=== PATIENT | male | born 1980 | race Caucasian/White ===

== ENCOUNTER 2017-05-19 14:03 | Inpatient (IN) | payer OTHER, SELFPAY ==
[2017-05-19] VITALS (12 sets, daily range): BP systolic 135–152; BP diastolic 83–99; PULSE 80–94; RESP 16–18; TEMP 36.3–37.3; O2SAT 93–97; BMI 29.3; BMI 30.7
--- NOTE | 2017-05-19 14:56 | EKG12_ITS ---
Test Reason : Blood Pressure : / mmHG Vent. Rate : 073 BPM Atrial Rate : 073 BPM P-R Int : 104 ms QRS Dur : 120 ms QT Int : 394 ms P-R-T Axes : 041 023 027 degrees QTc Int : 434 ms Normal sinus rhythm with sinus arrhythmia Vszps-Wsdgnyems-Fhndi Abnormal ECG Confirmed by NADIR BARRIOS, NAIDA ([id number]), content editor NELDA SANTORO ([id number]) on 05/20/2017 2:35:50 PM Referred By: STU Confirmed By:NAIDA SCHMITZ MD
--- NOTE | 2017-05-19 14:56 | RAD_ITS ---
STUDY: X-RAY CHEST REASON FOR EXAM: Male, 36 years old. Seizure. Loss of consciousness. TECHNIQUE: Single AP portable view of the chest. COMPARISON: None. FINDINGS: Telemetry wires overlie the chest. The lungs are clear and expanded. There is no demonstrated pleural abnormality. Normal size heart. Normal mediastinum and janett. Normal visualized pulmonary arteries. Normal visualized aortic arch and descending thoracic aorta. The thoracic spine is obscured by the mediastinum. Normal visualized ribs, clavicles, and shoulders. There is no demonstrated abnormality of the visualized soft tissue structures of the upper abdomen. RAD/Chest 1 View IMPRESSION: No acute cardiopulmonary disease. Electronically Signed: Dallas Mazariegos DO at 15:42 EDT Tel [phone], Service support ,
--- NOTE | 2017-05-19 14:56 | CT_ITS ---
STUDY: CT BRAIN WITHOUT CONTRAST REASON FOR EXAM: Male, 36 years old. Seizure, scalp laceration RADIATION DOSAGE (If Supplied By Facility): CTDIvol = ( 44.99 ) mGy, DLP = ( 846.73 ) mGycm TECHNIQUE: Transaxial CT imaging of the brain was performed without administration of intravenous contrast material. Sagittal and coronal reconstructed images are provided and reviewed. Individualized dose optimization techniques were used for this CT. COMPARISON: None. FINDINGS: There is soft tissue contusion in the left posterior scalp. Normal calvarium. Normal size ventricles and extra-axial spaces for the patient's age. Normal white matter tracts of the cerebral hemispheres. Normal basal ganglia and thalami. Normal brainstem. Normal cerebellum. There is no intracranial hemorrhage. There are no findings of an acute ischemic infarction. Normal visualized paranasal sinuses. CT/Brain/Head without Contrast IMPRESSION: Soft tissue swelling in the left parietal scalp. No acute intracranial abnormality. Electronically Signed: Xavi Bailon DO at 15:52 EDT Tel , Service support ,
[2017-05-19 15:21] LABS: Bedside Glucose 91 mg/dL (70-110)
[2017-05-19 15:32] LABS: Absolute Lymphocyte Count 1.42 X10^3/ul (0.83-4.51); Absolute Neutrophil Count 5.6 X10^3/uL (2.0-7.7); Basophil# 0.04 X10^3/uL; Basophil% 0.5 % (0-1); Eosinophil# 0.23 X10^3/uL; Eosinophils% 2.9 % (0-5); Hematocrit 46.9 % (40-54); Hemoglobin 16.4 g/dl (13.0-16.5); Lymphocyte # 1.42 X10^3/ul (4.0); Lymphocyte % 17.9 % (19-41); Mean Corpuscular Hgb 30.4 pg (27.0-32.0); Mean Platelet Vol. 11.5 fl (6.2-12.0); Monocyte# 0.59 X10^3/uL; Monocyte% 7.4 % (0-10); Neutrophil # 5.64 X10^3/uL (2.7-7.7); Platelet Count 155 K/mm3 (150-450); RBC Distribution Width CV 12.9 % (11.6-14.6); RBC Distribution Width SD 41.1 fl (35.1-43.9); Red Blood Count 5.39 M/mm3 (4.6-6.2); White Blood Count 7.9 K/mm3 (4.4-11.0)
[2017-05-19 15:34] LABS: POSITIVE COUNT NO; POSITIVE DIFFERENTIAL NO; POSITIVE MORPHOLOGY NO
[2017-05-19] MEDS: Diphth,Pertuss(Acell),Tet Vac 0.5 ML Vial IM (15:34)
[2017-05-19 15:43] LABS: International Normalized Ratio 0.9; Partial Thromboplast Time 24.5 Seconds (24.1-36.2); Prothrombin Time (Protime)PT. 12.6 SECONDS (11.7-14.9)
[2017-05-19 15:45] LABS: Anion Gap 8 (5-15); BUN 15 mg/dL (7-18); BUN/Creat Ratio 15.8 RATIO (10-20); Calcium,Total 8.5 mg/dL (8.5-10.1); Chloride 107 mmol/L (98-107); Creatinine, Serum 0.95 mg/dL (0.70-1.30); EST Glomerular Filtration Rate 94 mL/min (>60); Est Glom Filt Rate - Afr Amer 114 mL/min (>60); Estimated Creatinine Clearance 113.39 ml/min; Glucose 90 mg/dL (74-106); Potassium 4.2 mmol/L (3.5-5.1); Sodium Level 141 mmol/L (136-145)
[2017-05-19 16:12] LABS: Amphetamine Urine VISTA NEGATIVE (<1000 ng/mL); Barbiturate Urine VISTA NEGATIVE (< 200 ng/mL); Benzodiazepine Urine VISTA NEGATIVE (< 200 ng/mL); Cocaine Urine VISTA NEGATIVE (< 300 ng/mL); Ecstacy Urine VISTA NEGATIVE (< 500 ng/mL); Methadone Urine VISTA NEGATIVE (< 300 ng/mL); PCP Urine VISTA NEGATIVE (< 25 ng/mL); THC Urine VISTA POSITIVE (< 50 ng/mL); Vista UDS pH Range 6
--- NOTE | 2017-05-19 16:44 | ED.VISSUMM ---
- ER Visit Summary Date of Service: 05/19/17 Chief Complaint: Seizure History of Present Illness: The patient is a 36 M with a suspected seizure. The patient remembers prepping salad at work and then he went unconscious. Witnesses said he was shaking all over. EMS and nursing note that he was combative and postictal afterwards, but gradually improved. The patient denies any history of seizure. He denies any prodromal symptoms. He had sustained a laceration to his left scalp, but denies any other associated symptoms currently. 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 Denies any other significant medical issues. He does use marijuana. He drinks about 4-5 drinks per day which equates to about half a gallon of hard alcohol every 2 weeks. Denies any history of DTs or withdrawal seizures. Physical Examination: Vital signs unremarkable. Afebrile. He has a left scalp laceration, linear measuring 2 cm. Mild active bleeding. This is partial-thickness. No other sign of head trauma. Neck nontender. HEENT exam unremarkable. Cranial nerves grossly intact. Heart regular. Lungs clear. Abdomen soft. No focal or lateralizing neurologic abnormalities grossly. Patient is alert and oriented and in no acute distress. Test Results: EKG showed sinus rhythm at a rate of 73 with short MA interval and delta wave. CBC normal. BMP normal. Coags and troponin normal. Alcohol negative. Tox positive for THC. CT head showed left scalp soft tissue swelling but no other acute findings. Chest x-ray showed no acute findings. Emergency Department Course and Treatment: He was placed on a monitor and had seizure precautions. Tetanus was updated. Wound was cleaned and closed with 3 zohra. Patient tolerated this well. Patient had no further new or worsening symptoms. He has evidence of WPW. He has historical features that are concerning for new seizure. His mental status, vitals, and overall clinical presentation do not sound like DTs or withdrawal seizures. I believe the patient would benefit from further inpatient evaluation and monitoring. We called the CT, and at this time I am waiting for a call back. If the CT cannot accept this patient, the patient would like to go to [facility]. Further disposition is pending at this time. The oncoming doctor will follow-up. Treatment Plan: As above Disposition: Transfer pending further communications with accepting facilities Impression: 1. Seizure 2. WPW syndrome 3. Scalp laceration 2 cm stapled This note was generated with [employer] dictation software. It may contain incorrect words, spelling, and punctuation that were not noted in review of the chart prior to signing ED Disposition - Plan for ED Patient: Chief Complaint: Seizure Referrals: Care Physician,No Primary [Primary Care Provider] -
--- NOTE | 2017-05-19 16:49 | ED.DCSUM_ITS ---
- ER Visit Summary Date of Service: 05/19/17 Chief Complaint: Seizure History of Present Illness: The patient is a 36 M with a suspected seizure. The patient remembers prepping salad at work and then he went unconscious. Witnesses said he was shaking all over. EMS and nursing note that he was combative and postictal afterwards, but gradually improved. The patient denies any history of seizure. He denies any prodromal symptoms. He had sustained a laceration to his left scalp, but denies any other associated symptoms currently. He says he also has a history of Xdpvw-Wvckravlu-Xolgv syndrome. 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 Denies any other significant medical issues. He does use marijuana. He drinks about 4-5 drinks per day which equates to about half a gallon of hard alcohol every 2 weeks. Denies any history of DTs or withdrawal seizures. Physical Examination: Vital signs unremarkable. Afebrile. He has a left scalp laceration, linear measuring 2 cm. Mild active bleeding. This is partial- thickness. No other sign of head trauma. Neck nontender. HEENT exam unremarkable. Cranial nerves grossly intact. Heart regular. Lungs clear. Abdomen soft. No focal or lateralizing neurologic abnormalities grossly. Patient is alert and oriented and in no acute distress. Test Results: EKG showed sinus rhythm at a rate of 73 with short [place] interval and delta wave. CBC normal. BMP normal. Coags and troponin normal. Alcohol negative. Tox positive for THC. CT head showed left scalp soft tissue swelling but no other acute findings. Chest x-ray showed no acute findings. Emergency Department Course and Treatment: He was placed on a monitor and had seizure precautions. Tetanus was updated. Wound was cleaned and closed with 3 zohra. Patient tolerated this well. Patient had no further new or worsening symptoms. He has evidence of WPW. He has historical features that are concerning for new seizure. His mental status , vitals, and overall clinical presentation do not sound like DTs or withdrawal seizures. I believe the patient would benefit from further inpatient evaluation and monitoring. [facility] called the [facility], and at this time I am waiting for a call back. If the [facility] cannot accept this patient, the patient would like to go to [facility]. Further disposition is pending at this time. The oncoming doctor will follow-up. Treatment Plan: As above Disposition: Transfer pending further communications with accepting facilities Impression: 1. Seizure 2. WPW syndrome 3. Scalp laceration 2 cm stapled This note was generated with [employer] dictation software. It may contain incorrect words, spelling, and punctuation that were not noted in review of the chart prior to signing ED Disposition - Plan for ED Patient: Chief Complaint: Seizure Referrals: Care Physician,No Primary [Primary Care Provider] -
--- NOTE | 2017-05-19 17:47 | PCM.HP.STD ---
Problem List (1) Vitamin D deficiency Status: Chronic (2) Cannabis use disorder, mild, abuse Status: Chronic (3) Xnoic-Kzcvjfibo-Muujt (WPW) syndrome Status: Chronic (4) History of tobacco use Status: Chronic (5) Seizure Status: Acute (6) Alcohol abuse Status: Chronic History of Present Illness Date of Admission: 05/19/17 Chief Complaint: Seizure w/ Fall. The patient is a 36 y/o M w/ PMHx: WPW s/p ablation 2000, EtOH Abuse, Vitamin D Deficiency who presents to the [facility] ED on 05/19/17 with history of onset tonic clonic seizure while working at [employer] with post-ictal state noted per EMS w/ some combative behavior, calmed in the ED. Patient with no prior seizure history. Patient per witnesses was noted to hit his head on the floor upon seizure onset. Work-up in the ED included T 97.3, HR 90s, BP 149/95-->139/86, RR 16, 95% on RA, unremarkable CBC normal coags, unremarkable BMP, trop normal x 1, EKG without acute findings (WPW history), UDS + cannabis, EtOH level normal, CT head w/ soft tissue swelling in the left parietal scalp, no acute intracranial abnormality, chest x-ray unremarkable. Emergency room patient did have a 2 cm scalp laceration that was repaired per the ED. day was contacted on several occasions and did not respond therefore ED requested admission for evaluation and treatment of seizure. Past Medical History Past Medical History (Chronic Problems): Chronic Problems Vitamin D deficiency (Chronic) Cannabis use disorder, mild, abuse (Chronic) Cuxrc-Lvqocpfap-Tjilb (WPW) syndrome (Chronic) History of tobacco use (Chronic) Alcohol abuse (Chronic) Allergies No Known Allergies Allergy (Verified 05/19/17 14:12) Home Medications: Ambulatory Orders Medication Instructions Recorded Cholecalciferol (Vitamin D3) 1,000 unit PO DAILY 05/19/17 [Vitamin D3] Surgical History: - - Cardiac ablation, L shoulder arthroscopic surgery. Psychiatric History: No pertinent psych hx Lives: Roommate Smoking Status: Former smoker - Quit 8 years ago. Tobacco Use: Non-smoker Alcohol: Heavy - 3-5 drinks (gin/soda)/day Drugs: Marijuana - *Family History Maternal History Items: Hypertension Paternal History Items: Diabetes Review of Systems Constitutional: Reports: Fatigue. Denies: Chills, Fever, Weight Change HEENT: Reports: Head Aches. Denies: Sinus Congestion, Sinus Drainage Cardiovascular: Denies: Chest Pain, Palpitations Respiratory: Denies: Cough, Shortness of breath at rest, Sputum production Gastrointestinal: Denies: Abdominal Pain, Nausea, Vomiting Genitourinary: Denies: Dysuria Musculoskeletal: Denies: Joint Pain, Joint Tenderness Skin: Reports: Skin Changes, Wounds. Denies: Rash Neurological: Reports: Seizures. Denies: Focal weakness, Numbness, Tingling Psychiatric: Denies: Anxiety, Depression, Homicidal Ideations, Suicidal Ideations Hematologic/ Lymphatic: Denies: Easy Bruising, Easy Bleeding VTE Information - Inpt Only VTE Present on Admission: No VTE Mechan Device Prophylaxis: SCD's VTE Pharm Prophylaxis ordered?: No Reason prophylaxis not ordered:: Treatment Not Indicated Patient Problems: Active and Suspected Problems Seizure (Acute) Subjective: Seated upright in the ED bed, post-ictal state resolved, notes mild headache. Objective: Physical Examination: General: awake, alert, oriented x 3 and cooperative, seated upright in the ED bed in no apparent distress. Skin: normal color, turgor, no icterus, cyanosis except L lateral scalp laceration 2 cm, zohra in place. HEENT: AT/NC, EOMI, PERRLA, mildly dry MM, no carotid bruits or JVD noted. Lungs: CTA bilaterally, moderate effort, mild decrease BL bases, no rales, ronchi or wheezing. Heart: Regular rate and rhythm; no gallop, rub audible. Abdomen: soft, NTTP, ND, normal BS, no HSM. Extremities: no cyanosis, clubbing, or edema. Neurological: patient awake, alert, oriented x 3; cognitive function improved, now baseline intact; pupils equally reactive to light and accomodation; cranial nerves II-XII grossly normal, moving all 4 extremities, no focal deficits, strength mildly globally decreased secondary to acute presentation. Psychiatric: affect appears normal, no acute evidence of depressive or anxiety feelings. - Physical Exam Vital Signs Temp Pulse Resp BP Pulse Ox 97.3 F L 80 16 139/86 H 93 05/19/17 14:05 05/19/17 17:05 05/19/17 17:05 05/19/17 17:05 05/19/17 17:05 Oxygen Delivery Method Room Air Weight: 210 lb 6.899 oz Body Mass Index (BMI) 29.3 Finger Stick Blood Glucose 91 Laboratory Tests Past 24 Hrs 05/19/17 05/19/17 05/19/17 15:12 15:12 15:12 WBC 7.9 RBC 5.39 Hgb 16.4 Hct 46.9 MCV 87.0 MCH 30.4 MCHC 35.0 RDW 12.9 RDW Differential 41.1 Plt Count 155 MPV 11.5 Immature Gran % (Auto) 0.300 Neut % (Auto) 71.0 H Lymph % (Auto) 17.9 L [place] % (Auto) 7.4 Eos % (Auto) 2.9 Baso % (Auto) 0.5 Absolute Neuts (auto) 5.6 Absolute Lymphs (auto) 1.42 Total Counted Not Reportable PT 12.6 INR 0.9 APTT 24.5 Sodium 141 Potassium 4.2 Chloride 107 Carbon Dioxide 26.0 Anion Gap 8 BUN 15 Creatinine 0.95 Estim Creat Clear Calc 113.39 Est GFR (MDRD) Af Amer 114 Est GFR (MDRD) Non-Af 94 BUN/Creatinine Ratio 15.8 Glucose 90 Calcium 8.5 Troponin I < 0.02 Urine Opiates Screen Urine Methadone Screen Ur Barbiturates Screen Ur Phencyclidine Scrn Ur Amphetamines Screen U Methamphetamin-MDMA U Benzodiazepines Scrn Urine Cocaine Screen U Cannabinoids Screen Ur Drug Screen Comment Ethyl Alcohol 05/19/17 05/19/17 15:12 15:40 WBC RBC Hgb Hct MCV MCH MCHC RDW RDW Differential Plt Count MPV Immature Gran % (Auto) Neut % (Auto) Lymph % (Auto) [place] % (Auto) Eos % (Auto) Baso % (Auto) Absolute Neuts (auto) Absolute Lymphs (auto) Total Counted PT INR APTT Sodium Potassium Chloride Carbon Dioxide Anion Gap BUN Creatinine Estim Creat Clear Calc Est GFR (MDRD) Af Amer Est GFR (MDRD) Non-Af BUN/Creatinine Ratio Glucose Calcium Troponin I Urine Opiates Screen NEGATIVE Urine Methadone Screen NEGATIVE Ur Barbiturates Screen NEGATIVE Ur Phencyclidine Scrn NEGATIVE Ur Amphetamines Screen NEGATIVE U Methamphetamin-MDMA NEGATIVE U Benzodiazepines Scrn NEGATIVE Urine Cocaine Screen NEGATIVE U Cannabinoids Screen POSITIVE H Ur Drug Screen Comment Ethyl Alcohol 4.0 POC Glucose 03/28/18 15:12 POC Glucose 91 Assessment/Plan Active and Suspected Problems Seizure (Acute) The patient is a 36 y/o M w/ PMHx: WPW s/p ablation 2000, EtOH Abuse, Vitamin D Deficiency who presents to the [facility] ED on 05/19/17 with history of onset tonic clonic seizure while working at [employer] with post-ictal state noted per EMS w/ some combative behavior, calmed in the ED. (1) New-onset seizure s/p Fall w/ Scalp Laceration: Seizure witnessed with postictal state w/ fall w/ scalp laceration s/p ED repair. Improved mental status in the emergency room. CT head without acute intracranial pathology. Lab work-up included unremarkable CBC, BMP, UTox with + cannabis, pending UA. Will admit to PCU, maintain on telemetry in PCU on seizure precautions, obtain EEG, obtain brain MRI, obtain TSH. Pending Neurology consultation. PRN ativan IV for seizure activity. Pending hepatic profile. (2) Hx WPW Syndrome: Patient w/ hx WPW, s/p ablation 2000 with noted existing accessory pathway, no note per EMS of tachycardia, ED reviewed w/ Dr. Otto and felt no obvious reason for WPW to cause seizure activity, likely neurological, maintain on telemetry as noted above. (3) Elevated BP without HTN Dx: BPs elevated in the ED, continue to trend, if remains above goal over the next 24 hours appropriate to initiate oral therapy, PRN hydralazine. (4) GERD: Famotidine. (5) EtOH Abuse: Patient notes routine consumption of gin/soda, 3-5 drinks per day. Will maintain on CIWA protocol, MVI, thiamine and folic acid. Encouraged safe sobriety. (6) DVT Prophylaxis: SCDs, low risk. Code Visit Inpatient E&M: 44050 Init Hosp L3
--- NOTE | 2017-05-19 17:55 | HP.PCM_ITS ---
Problem List (1) Vitamin D deficiency Status: Chronic (2) Cannabis use disorder, mild, abuse Status: Chronic (3) Rlxmq-Yfcqpztta-Rwrzq (WPW) syndrome Status: Chronic (4) History of tobacco use Status: Chronic (5) Seizure Status: Acute (6) Alcohol abuse Status: Chronic History of Present Illness Date of Admission: 05/19/17 Chief Complaint: Seizure w/ Fall. The patient is a 36 y/o M w/ PMHx: WPW s/p ablation 2000, EtOH Abuse, Vitamin D Deficiency who presents to the [facility] ED on 05/19/17 with history of onset tonic clonic seizure while working at [employer] with post-ictal state noted per EMS w/ some combative behavior, calmed in the ED. Patient with no prior seizure history. Patient per witnesses was noted to hit his head on the floor upon seizure onset. Work-up in the ED included T 97.3, HR 90s, BP 149/95-- >139/86, RR 16, 95% on RA, unremarkable CBC normal coags, unremarkable BMP, trop normal x 1, EKG without acute findings (WPW history), UDS + cannabis, EtOH level normal, CT head w/ soft tissue swelling in the left parietal scalp, no acute intracranial abnormality, chest x-ray unremarkable. Emergency room patient did have a 2 cm scalp laceration that was repaired per the ED. day was contacted on several occasions and did not respond therefore ED requested admission for evaluation and treatment of seizure. Past Medical History Past Medical History (Chronic Problems): Chronic Problems Vitamin D deficiency (Chronic) Cannabis use disorder, mild, abuse (Chronic) Cxtdp-Tootdrapk-Bcvqy (WPW) syndrome (Chronic) History of tobacco use (Chronic) Alcohol abuse (Chronic) Allergies No Known Allergies Allergy (Verified 05/19/17 14:12) Home Medications: Ambulatory Orders Medication Instructions Recorded Cholecalciferol (Vitamin D3) 1,000 unit PO DAILY 05/19/17 [Vitamin D3] Surgical History: - - Cardiac ablation, L shoulder arthroscopic surgery. Psychiatric History: No pertinent psych hx Lives: Roommate Smoking Status: Former smoker - Quit 8 years ago. Tobacco Use: Non-smoker Alcohol: Heavy - 3-5 drinks (gin/soda)/day Drugs: Marijuana - *Family History Maternal History Items: Hypertension Paternal History Items: Diabetes Review of Systems Constitutional: Reports: Fatigue. Denies: Chills, Fever, Weight Change HEENT: Reports: Head Aches. Denies: Sinus Congestion, Sinus Drainage Cardiovascular: Denies: Chest Pain, Palpitations Respiratory: Denies: Cough, Shortness of breath at rest, Sputum production Gastrointestinal: Denies: Abdominal Pain, Nausea, Vomiting Genitourinary: Denies: Dysuria Musculoskeletal: Denies: Joint Pain, Joint Tenderness Skin: Reports: Skin Changes, Wounds. Denies: Rash Neurological: Reports: Seizures. Denies: Focal weakness, Numbness, Tingling Psychiatric: Denies: Anxiety, Depression, Homicidal Ideations, Suicidal Ideations Hematologic/ Lymphatic: Denies: Easy Bruising, Easy Bleeding VTE Information - Inpt Only VTE Present on Admission: No VTE Mechan Device Prophylaxis: SCD's VTE Pharm Prophylaxis ordered?: No Reason prophylaxis not ordered:: Treatment Not Indicated Patient Problems: Active and Suspected Problems Seizure (Acute) Subjective: Seated upright in the ED bed, post-ictal state resolved, notes mild headache. Objective: Physical Examination: General: awake, alert, oriented x 3 and cooperative, seated upright in the ED bed in no apparent distress. Skin: normal color, turgor, no icterus, cyanosis except L lateral scalp laceration 2 cm, zohra in place. HEENT: AT/NC, EOMI, PERRLA, mildly dry MM, no carotid bruits or JVD noted. Lungs: CTA bilaterally, moderate effort, mild decrease BL bases, no rales, ronchi or wheezing. Heart: Regular rate and rhythm; no gallop, rub audible. Abdomen: soft, NTTP, ND, normal BS, no HSM. Extremities: no cyanosis, clubbing, or edema. Neurological: patient awake, alert, oriented x 3; cognitive function improved, now baseline intact; pupils equally reactive to light and accomodation; cranial nerves II-XII grossly normal, moving all 4 extremities, no focal deficits, strength mildly globally decreased secondary to acute presentation. Psychiatric: affect appears normal, no acute evidence of depressive or anxiety feelings. - Physical Exam Vital Signs Temp Pulse Resp BP Pulse Ox 97.3 F L 80 16 139/86 H 93 05/19/17 14:05 05/19/17 17:05 05/19/17 17:05 05/19/17 17:05 05/19/17 17:05 Oxygen Delivery Method Room Air Weight: 210 lb 6.899 oz Body Mass Index (BMI) 29.3 Finger Stick Blood Glucose 91 Laboratory Tests Past 24 Hrs 05/19/17 05/19/17 05/19/17 15:12 15:12 15:12 WBC 7.9 RBC 5.39 Hgb 16.4 Hct 46.9 MCV 87.0 MCH 30.4 MCHC 35.0 RDW 12.9 RDW Differential 41.1 Plt Count 155 MPV 11.5 Immature Gran % (Auto) 0.300 Neut % (Auto) 71.0 H Lymph % (Auto) 17.9 L [place] % (Auto) 7.4 Eos % (Auto) 2.9 Baso % (Auto) 0.5 Absolute Neuts (auto) 5.6 Absolute Lymphs (auto) 1.42 Total Counted Not Reportable PT 12.6 INR 0.9 APTT 24.5 Sodium 141 Potassium 4.2 Chloride 107 Carbon Dioxide 26.0 Anion Gap 8 BUN 15 Creatinine 0.95 Estim Creat Clear Calc 113.39 Est GFR (MDRD) Af Amer 114 Est GFR (MDRD) Non-Af 94 BUN/Creatinine Ratio 15.8 Glucose 90 Calcium 8.5 Troponin I < 0.02 Urine Opiates Screen Urine Methadone Screen Ur Barbiturates Screen Ur Phencyclidine Scrn Ur Amphetamines Screen U Methamphetamin-MDMA U Benzodiazepines Scrn Urine Cocaine Screen U Cannabinoids Screen Ur Drug Screen Comment Ethyl Alcohol 05/19/17 05/19/17 15:12 15:40 WBC RBC Hgb Hct MCV MCH MCHC RDW RDW Differential Plt Count MPV Immature Gran % (Auto) Neut % (Auto) Lymph % (Auto) [place] % (Auto) Eos % (Auto) Baso % (Auto) Absolute Neuts (auto) Absolute Lymphs (auto) Total Counted PT INR APTT Sodium Potassium Chloride Carbon Dioxide Anion Gap BUN Creatinine Estim Creat Clear Calc Est GFR (MDRD) Af Amer Est GFR (MDRD) Non-Af BUN/Creatinine Ratio Glucose Calcium Troponin I Urine Opiates Screen NEGATIVE Urine Methadone Screen NEGATIVE Ur Barbiturates Screen NEGATIVE Ur Phencyclidine Scrn NEGATIVE Ur Amphetamines Screen NEGATIVE U Methamphetamin-MDMA NEGATIVE U Benzodiazepines Scrn NEGATIVE Urine Cocaine Screen NEGATIVE U Cannabinoids Screen POSITIVE H Ur Drug Screen Comment Ethyl Alcohol 4.0 POC Glucose 03/28/18 15:12 POC Glucose 91 Assessment/Plan Active and Suspected Problems Seizure (Acute) The patient is a 36 y/o M w/ PMHx: WPW s/p ablation 2000, EtOH Abuse, Vitamin D Deficiency who presents to the [facility] ED on 05/19/17 with history of onset tonic clonic seizure while working at [employer] with post-ictal state noted per EMS w/ some combative behavior, calmed in the ED. (1) New-onset seizure s/p Fall w/ Scalp Laceration: Seizure witnessed with postictal state w/ fall w/ scalp laceration s/p ED repair. Improved mental status in the emergency room. CT head without acute intracranial pathology. Lab work-up included unremarkable CBC, BMP, UTox with + cannabis, pending UA. Will admit to PCU, maintain on telemetry in PCU on seizure precautions, obtain EEG, obtain brain MRI, obtain TSH. Pending Neurology consultation. PRN ativan IV for seizure activity. Pending hepatic profile. (2) Hx WPW Syndrome: Patient w/ hx WPW, s/p ablation 2000 with noted existing accessory pathway, no note per EMS of tachycardia, ED reviewed w/ Dr. Otto and felt no obvious reason for WPW to cause seizure activity, likely neurological, maintain on telemetry as noted above. (3) Elevated BP without HTN Dx: BPs elevated in the ED, continue to trend, if remains above goal over the next 24 hours appropriate to initiate oral therapy, PRN hydralazine. (4) GERD: Famotidine. (5) EtOH Abuse: Patient notes routine consumption of gin/soda, 3-5 drinks per day. Will maintain on CIWA protocol, MVI, thiamine and folic acid. Encouraged safe sobriety. (6) DVT Prophylaxis: SCDs, low risk. Code Visit Inpatient E&M: 32488 Init Hosp L3
[2017-05-19 18:22] LABS: Bacteria 0 SEEN /hpf (None Seen); Mucous, Urine 0 SEEN /hpf (<or=2+); Red Blood Cells-Urine 0 SEEN /hpf (0-5); Squamous Epithelial Cells - UA 0 SEEN /hpf (0-5); White Blood Cells 0 SEEN /hpf (0-5)
[2017-05-19 18:24] LABS: Color, Urine Yellow (Yellow); Glucose, Dipstick Normal (Normal); Ketone-Dipstick 5 mg/dl (Negative); Leukocyte Esterase-Dipstick Negative /ul (Negative); Nitrite-Dipstick Negative (Negative); Occult Blood-Urine 10 /ul (Negative); Protein-Dipstick 30 mg/dl (Negative); Specific Gravity, Urine 1.025 (1.002-1.030); Urine Bilirubin Dipstick Negative (Negative); Urine Clarity Clear (Clear); Urine Urobilinogen Normal (Normal)
[2017-05-19 18:37] LABS: Fine Granular Cast- Urine 0-5 SEEN /lpf (0-5)
[2017-05-19 19:26] LABS: AST(SGOT) 26 U/L (15-37); Alanine Aminotransfer ALT/SGPT 48 U/L (16-61); Albumin, Serum 4.4 g/dL (3.2-5.0); Alkaline Phosphatase 61 U/L (45-117); Bilirubin, Direct 0.11 mg/dL (0.00-0.30); Globulin 3.2 g/dL (2.2-4.2); Magnesium 2.3 mg/dL (1.6-2.6); Phosphorus 1.5 mg/dL (2.5-4.9); Protein, Total 7.6 g/dL (6.4-8.2); Thyroid Stim Hormone (TSH) 1.89 uIU/mL (0.358-3.74)
[2017-05-19] MEDS: Famotidine 20 MG Tablet PO (22:28)
[2017-05-20] VITALS (9 sets, daily range): BP systolic 127–141; BP diastolic 49–97; PULSE 55–82; RESP 16–18; TEMP 36.6–36.8; O2SAT 93–97
--- NOTE | 2017-05-20 04:36 | EKG12_ITS ---
Test Reason : RHYTHM CHANGE Blood Pressure : / mmHG Vent. Rate : 063 BPM Atrial Rate : 063 BPM P-R Int : 108 ms QRS Dur : 130 ms QT Int : 450 ms P-R-T Axes : 053 065 025 degrees QTc Int : 460 ms Normal sinus rhythm with sinus arrhythmia Aexfn-Pjwnnvxlp-Fywrh Abnormal ECG When compared with ECG of 19-MAY-2017 15:05, MANUAL COMPARISON REQUIRED, DATA IS UNCONFIRMED Confirmed by NADIR BARRIOS, NAIDA ([id number]), production editor NELDA SANTORO ([id number]) on 05/24/2017 1:57:44 PM Referred By: PK Confirmed By:NAIDA SCHMITZ MD
[2017-05-20 06:10] LABS: Hematocrit 46.3 % (40-54); Hemoglobin 16.3 g/dl (13.0-16.5); Mean Corp Hgb Conc 35.2 g/gl (32-36); Mean Corpuscular Hgb 30.5 pg (27.0-32.0); Mean Corpuscular Volume 86.7 fL (80-94); Mean Platelet Vol. 11.5 fl (6.2-12.0); Platelet Count 175 K/mm3 (150-450); RBC Distribution Width CV 13.1 % (11.6-14.6); RBC Distribution Width SD 40.9 fl (35.1-43.9); Red Blood Count 5.34 M/mm3 (4.6-6.2); Scan Indicated on CBC? Y/N NO; White Blood Count 7.2 K/mm3 (4.4-11.0)
[2017-05-20 06:36] LABS: ALB/GLOB Ratio 1.3 RATIO (0.9-2.4); AST(SGOT) 30 U/L (15-37); Alanine Aminotransfer ALT/SGPT 44 U/L (16-61); Albumin, Serum 3.9 g/dL (3.2-5.0); Alkaline Phosphatase 49 U/L (45-117); Anion Gap 7 (5-15); BUN 11 mg/dL (7-18); BUN/Creat Ratio 12.3 RATIO (10-20); Calcium,Total 8.7 mg/dL (8.5-10.1); Chloride 109 mmol/L (98-107); Creatinine, Serum 0.89 mg/dL (0.70-1.30); EST Glomerular Filtration Rate 102 mL/min (>60); Est Glom Filt Rate - Afr Amer 123 mL/min (>60); Estimated Creatinine Clearance 121.03 ml/min; Glucose 116 mg/dL (74-106); Protein, Total 6.9 g/dL (6.4-8.2); Sodium Level 142 mmol/L (136-145)
--- NOTE | 2017-05-20 07:41 | MRI_ITS ---
STUDY: MRI BRAIN WITH AND WITHOUT CONTRAST REASON FOR EXAM: Male, 36 years old. Fall and seizure TECHNIQUE: Standardized multiplanar fat and water weighted pulse sequences were obtained. 7 ml of Gadavist contrast material was administered intravenously for the contrast portion of the examination. COMPARISON: Head CT 05/19/2017 FINDINGS: Normal size of the ventricles and extra-axial spaces for the patient's age. Normal white matter tracts of the supratentorial brain. Normal bilateral basal ganglia. Normal thalami. There is no extra-axial fluid accumulation. Normal flow voids within the major intracranial circulation suggesting patency by spin echo criteria. Normal venous enhancement. There is no enhancing intra-axial or extra-axial abnormality. Normal sella turcica, pituitary gland, infundibular stalk, optic chiasm and hypothalamus. Normal tectal plate and pineal gland. Normal midbrain, tanna and medulla. Normal cerebellum. Normal basal cisterns. Normal bilateral temporal bones. Normal bilateral internal auditory canals. No demonstrated orbital abnormality, within the constraints of a routine brain study. Normal visualized paranasal sinuses. Normal calvarium and skull base. Left parietal scalp swelling. Normal visualized upper cervical spine. MRI/Brain W/WO Contrast IMPRESSION: No evidence of infarct, hemorrhage, mass, or abnormal enhancement. No temporal lobe lesions are seen. Electronically Signed: Giuseppe Sauer MD at 10:10 EDT Tel , Service support ,
[2017-05-20] MEDS: Famotidine 20 MG Tablet PO (09:42)
[2017-05-20] MEDS: Folic Acid 1 MG Tablet PO (09:43)
[2017-05-20] MEDS: Multivitamins,Ther W-Minerals Tablet 1 TABLET PO (09:43)
[2017-05-20] MEDS: Thiamine Hydrochloride 100 MG Tablet PO (09:44)
--- NOTE | 2017-05-20 10:49 | CASEMGMT ---
SW spoke with patient due to alcohol abuse and no PCP. SW met with patient introduced self as well as role at [facility] [place]. SW did find out [facility] [place] [facility]. SW discussed his alcohol consumption. He said the doctor's did tell him he needs to cut back or quit. He said he does drink daily, but not to get drunk. He said it is a great way to loosen up his tense muscles. He denied that this is a problem and he shows up to work every day on time. He declined any resources for counseling. Kirsten LALA MSW
--- NOTE | 2017-05-20 10:55 | EEG ---
- Electroencephalogram Date of service: 05/20/17 History EEG is being done in this 36 yr M to rule out seizures EEG Description: This is an 18 channel EEG with 10-20 lead placement system. Bipolar montages, Referential and Circumferential montages were reviewed. Photic stimulation and Hyperventilation were performed. The posterior dominant background rhythm is 9 HZ synchronous, symmetric, reacting to eye opening and closing. Photo stimulation elicited normal driving response but no abnormal photoparoxysmal response, Hyperventilation did not elicit any abnormal photoparoxysmal response. Sleep was identified. There were periods of apnea recorded during the sleep. There was no abnormal background artefact noted durign the record. EKG artefact noted. There was no epileptiform discharges or electrographic seizures noted during this recording. EEG Interpretation This is a normal awake and asleep EEG but there were periods of apnea noted during the sleep recordings which could be suggestive of sleep apnea. Further work up should be done to diagnose sleep apnea. Clinical correlation is advised. There is no epileptiform discharges or electrographic seizures noted during the record.
--- NOTE | 2017-05-20 14:04 | DCINST_ITS ---
- Discharge Diagnoses Current Active Problems: Current Active and Chronic Problems Vitamin D deficiency (Chronic) Cannabis use disorder, mild, abuse (Chronic) Siybr-Kbyojsxgp-Nevrq (WPW) syndrome (Chronic) History of tobacco use (Chronic) Seizure (Acute) Alcohol abuse (Chronic) You will use the following diet at home:: No restrictions Discharge Activity: May Not Drive - 6 months Call your doctor if you observe: Shortness of breath, Dizziness, Fainting spells , Increased palpitations (irregular heartbeat) Allergies/Adverse Reactions: Allergies No Known Allergies Allergy (Verified 05/19/17 14:12) Medications to take at Discharge Cholecalciferol (Vitamin D3) [Vitamin D3] 1,000 unit PO DAILY 05/19/17 Naproxen 250 mg PO PRN PRN 05/19/17 Folic Acid 1 mg PO DAILY@0800 #30 tab 05/20/17 Thiamine Hydrochloride [Vitamin B1] 100 mg PO BIDCM #60 tab 05/20/17 The following prescriptions were given: Folic Acid 1 mg PO DAILY@0800 #30 tab Thiamine Hydrochloride [Vitamin B1] 100 mg PO BIDCM #60 tab Primary Care Physician: Care Physician,No Primary [Primary Care Provider] - Please follow up with your Primary Care Physician in: 1 Week Please Follow Up With: Bishop Leonard MD When: 4-6 Weeks Proposed Discharge Date: 05/20/17
--- NOTE | 2017-05-20 14:05 | PCM.DC.SUM ---
<UvaldoAnabel - Last Filed: 05/20/17 14:14> Discharge Date and Diagnosis Date of Admission: 05/19/17 Date of Discharge: 05/20/17 - Primary Discharge Diagnosis Active and Suspected Problems 1. New onset seizure with associated mechanical fall and scalp laceration requiring zohra in ED 2. Alcohol abuse - Secondary Discharge Diagnosis Chronic Problems Vitamin D deficiency (Chronic) Cannabis use disorder, mild, abuse (Chronic) Dxini-Pendnlhyz-Njggf (WPW) syndrome (Chronic) History of tobacco use (Chronic) Alcohol abuse (Chronic) Hospital Course and Treatment Imaging Results: Diagnostic Data Brain CT 05/19/17 14:56 IMPRESSION: Soft tissue swelling in the left parietal scalp. No acute intracranial abnormality. Electronically Signed: Xavi Bailon DO at 15:52 EDT Tel , Service support , Chest X-Ray 05/19/17 14:56 IMPRESSION: No acute cardiopulmonary disease. Electronically Signed: Dallas Mazariegos DO at 15:42 EDT Tel [phone], Service support , Brain MRI 05/20/17 07:41 IMPRESSION: No evidence of infarct, hemorrhage, mass, or abnormal enhancement. No temporal lobe lesions are seen. Electronically Signed: Giuseppe Sauer MD at 10:10 EDT Tel , Service support , Dr. Leonard- Neurology Operations: None Procedures: Electroencephalogram Summary of Care Provided: The patient is a 36 year old M admitted 05/11/2017 due to seizure with associated mechanical fall and scalp laceration. Patient was working at [employer] during reported seizure. [place] were applied to scalp laceration in emergency room and can be removed in 7 days. Patient has no previous history of seizure. Neurology consulted. EEG unremarkable for seizure. MRI of brain showed no evidence of infarct, hemorrhage or mass. Suspect seizure may have been related to chronic alcohol abuse. Patient states he drinks 4-6 mixed drinks per day. Neurology does not recommend starting on seizure prevention medication at this time. If patient has recurrent seizures, he will follow-up with Dr. Leonard and medication will be initiated at that time. Patient will follow-up with neurology in 4-6 weeks. Alcohol cessation was encouraged. Chest x-ray unremarkable. Patient's drug screen was positive for cannabinoids. His other past medical history includes WPW syndrome status post ablation in 2000. Patient was started on thiamine and folic acid supplementation and will continue at discharge. No further seizure activity since admission. Patient seen and examined prior to discharge. Heart rate regular rate and rhythm. Lungs clear. Abdomen soft, nontender. Neuro grossly intact. 2 cm laceration with zohra intact without signs of infection. Patient will follow up with primary care physician in 1 week for removal of zohra. Patient is stable for discharge home with the recommendations as noted above. This patient was seen by TORSTEN Colon under the supervision of Dr. Johnson. Discharge Diet: No Restrictions Discharge Activity: May Not Drive - 6 months Call your doctor if you observe: Shortness of breath, Dizziness, Fainting spells, Increased palpitations (irregular heartbeat) Home Medications: Medications to take at Discharge Cholecalciferol (Vitamin D3) [Vitamin D3] 1,000 unit PO DAILY 05/19/17 Naproxen 250 mg PO PRN PRN 05/19/17 Folic Acid 1 mg PO DAILY@0800 #30 tab 05/20/17 Thiamine Hydrochloride [Vitamin B1] 100 mg PO BIDCM #60 tab 05/20/17 Following Prescrptions Were Given to Patient: Folic Acid 1 mg PO DAILY@0800 #30 tab Thiamine Hydrochloride [Vitamin B1] 100 mg PO BIDCM #60 tab Primary Care Physician: Care Physician,No Primary [Primary Care Provider] - Please follow up with your Primary Care Physician in: 1 Week Please Follow Up With: Bishop Leonard MD When: 4-6 Weeks Additional Instructions: Remove zohra in 7 days. Disposition: Home Minutes spent on discharge:: 35 Patient Condition:: Stable Medical Necessity - Tobacco Use Smoking Status: Former smoker Tobacco Use: Non-smoker Meaningful Use Info Meaningful Use Diagnoses (Choose all that apply): None applicable <Jack Johnson - Last Filed: 05/20/17 15:09> Discharge Date and Diagnosis - Secondary Discharge Diagnosis Chronic Problems Vitamin D deficiency (Chronic) Cannabis use disorder, mild, abuse (Chronic) Xqkxc-Nggnvmswr-Oamkq (WPW) syndrome (Chronic) History of tobacco use (Chronic) Alcohol abuse (Chronic) Hospital Course and Treatment Imaging Results: 05/20/17 07:41 MRI Brain [Brain W/WO Contrast] [MRI] Urgent Summary of Care Provided: This patient was seen in conjunction with Efren MOODY. I have independently interviewed and examined the patient and reviewed pertinent history, examination findings, laboratory and plan of management. I have reviewed the note and agree with the documented findings with the few additional points. In brief, patient is admitted for new onset seizure was probably induced by alcohol intake/withdrawal. Had scalp laceration for which zohra were applied in the emergency room. Dr. Leonard recommended follow-up in 4-6 weeks. Does not need antiepileptic medication. As per, Dr. Leonard, veterinary technician assistant noted shortness span of apnea during EEG and he recommended outpatient sleep study. I have discussed my assessment with Efren MOODY and orders have been reviewed. What meeting [] Code Visit OBSV E&M: 92192 Observation care discharge
--- NOTE | 2017-05-20 14:12 | DS.PCM_ITS ---
<UvaldoAnabel - Last Filed: 05/20/17 14:14> Discharge Date and Diagnosis Date of Admission: 05/19/17 Date of Discharge: 05/20/17 - Primary Discharge Diagnosis Active and Suspected Problems 1. New onset seizure with associated mechanical fall and scalp laceration requiring zohra in ED 2. Alcohol abuse - Secondary Discharge Diagnosis Chronic Problems Vitamin D deficiency (Chronic) Cannabis use disorder, mild, abuse (Chronic) Nzspv-Vpcgkyevw-Syzrb (WPW) syndrome (Chronic) History of tobacco use (Chronic) Alcohol abuse (Chronic) Hospital Course and Treatment Imaging Results: Diagnostic Data Brain CT 05/19/17 14:56 IMPRESSION: Soft tissue swelling in the left parietal scalp. No acute intracranial abnormality. Electronically Signed: Xavi Bailon DO at 15:52 EDT Tel , Service support , Chest X-Ray 05/19/17 14:56 IMPRESSION: No acute cardiopulmonary disease. Electronically Signed: Dallas Mazariegos DO at 15:42 EDT Tel [phone], Service support , Brain MRI 05/20/17 07:41 IMPRESSION: No evidence of infarct, hemorrhage, mass, or abnormal enhancement. No temporal lobe lesions are seen. Electronically Signed: Giuseppe Sauer MD at 10:10 EDT Tel , Service support , Dr. Leonard- Neurology Operations: None Procedures: Electroencephalogram Summary of Care Provided: The patient is a 36 year old M admitted 05/11/2017 due to seizure with associated mechanical fall and scalp laceration. Patient was working at [employer] during reported seizure. [place] were applied to scalp laceration in emergency room and can be removed in 7 days. Patient has no previous history of seizure. Neurology consulted. EEG unremarkable for seizure. MRI of brain showed no evidence of infarct, hemorrhage or mass. Suspect seizure may have been related to chronic alcohol abuse. Patient states he drinks 4-6 mixed drinks per day. Neurology does not recommend starting on seizure prevention medication at this time. If patient has recurrent seizures, he will follow-up with Dr. Leonard and medication will be initiated at that time. Patient will follow-up with neurology in 4-6 weeks. Alcohol cessation was encouraged. Chest x-ray unremarkable. Patient's drug screen was positive for cannabinoids. His other past medical history includes WPW syndrome status post ablation in 2000. Patient was started on thiamine and folic acid supplementation and will continue at discharge. No further seizure activity since admission. Patient seen and examined prior to discharge. Heart rate regular rate and rhythm. Lungs clear. Abdomen soft, nontender. Neuro grossly intact. 2 cm laceration with zohra intact without signs of infection. Patient will follow up with primary care physician in 1 week for removal of zohra. Patient is stable for discharge home with the recommendations as noted above. This patient was seen by TORSTEN Colon under the supervision of Dr. Johnson. Discharge Diet: No Restrictions Discharge Activity: May Not Drive - 6 months Call your doctor if you observe: Shortness of breath, Dizziness, Fainting spells , Increased palpitations (irregular heartbeat) Home Medications: Medications to take at Discharge Cholecalciferol (Vitamin D3) [Vitamin D3] 1,000 unit PO DAILY 05/19/17 Naproxen 250 mg PO PRN PRN 05/19/17 Folic Acid 1 mg PO DAILY@0800 #30 tab 05/20/17 Thiamine Hydrochloride [Vitamin B1] 100 mg PO BIDCM #60 tab 05/20/17 Following Prescrptions Were Given to Patient: Folic Acid 1 mg PO DAILY@0800 #30 tab Thiamine Hydrochloride [Vitamin B1] 100 mg PO BIDCM #60 tab Primary Care Physician: Care Physician,No Primary [Primary Care Provider] - Please follow up with your Primary Care Physician in: 1 Week Please Follow Up With: Bishop Leonard MD When: 4-6 Weeks Additional Instructions: Remove zohra in 7 days. Disposition: Home Minutes spent on discharge:: 35 Patient Condition:: Stable Medical Necessity - Tobacco Use Smoking Status: Former smoker Tobacco Use: Non-smoker Meaningful Use Info Meaningful Use Diagnoses (Choose all that apply): None applicable <Jack Johnson - Last Filed: 05/20/17 15:09> Discharge Date and Diagnosis - Secondary Discharge Diagnosis Chronic Problems Vitamin D deficiency (Chronic) Cannabis use disorder, mild, abuse (Chronic) Gvcsg-Ixwlgtlxo-Lkqpt (WPW) syndrome (Chronic) History of tobacco use (Chronic) Alcohol abuse (Chronic) Hospital Course and Treatment Imaging Results: 05/20/17 07:41 MRI Brain [Brain W/WO Contrast] [MRI] Urgent Summary of Care Provided: This patient was seen in conjunction with Efren MOODY. I have independently interviewed and examined the patient and reviewed pertinent history, examination findings, laboratory and plan of management. I have reviewed the note and agree with the documented findings with the few additional points. In brief, patient is admitted for new onset seizure was probably induced by alcohol intake/withdrawal. Had scalp laceration for which zohra were applied in the emergency room. Dr. Leonard recommended follow-up in 4-6 weeks. Does not need antiepileptic medication. As per, Dr. Leonard, digital imaging technician noted shortness span of apnea during EEG and he recommended outpatient sleep study. I have discussed my assessment with Efren MOODY and orders have been reviewed. What meeting [] Code Visit OBSV E&M: 64155 Observation care discharge
--- NOTE | 2017-05-20 14:20 | PCM.CONS.GEN ---
Problem List (1) Seizure Status: Acute Reason for Consult Date of Consultation: 05/20/17 Reason for Consultation: seizure History of Present Illness: The patient is a 36 year old CM with PMH WPW syndrome s/p ablation, ETOH abuse and marijuana abuse admitted with seizure. Per patient he was working at [employer] and suddenly felt ingris vu, felt funny and weird, was told that his left UE started shaking, per ED documentation he had witnessed generalized seizures, he fell down, had laceration on the left scalp, was post ictal for about 15-20 minutes, denies any tongue bite, or urinary incontinence, does not remember the event, never had seizures in the past, did not have any more seizure since admission, drinks about 4-5 beers everyday, smokes marijuana. Had normal MRI brain and EEG on admission. At present denies any YUAN, visual disturbances, speech disturbances, focal motor weakness or sensory loss. UDS +ve for cannabinoids.[] Past Medical History Past Medical History (Chronic Problems): Chronic Problems Vitamin D deficiency (Chronic) Cannabis use disorder, mild, abuse (Chronic) Iffpg-Myxprprno-Xqjgr (WPW) syndrome (Chronic) History of tobacco use (Chronic) Alcohol abuse (Chronic) Allergies No Known Allergies Allergy (Verified 05/19/17 14:12) Home Medications: Ambulatory Orders Medication Instructions Recorded Cholecalciferol (Vitamin D3) 1,000 unit PO DAILY 05/19/17 [Vitamin D3] Naproxen 250 mg PO PRN PRN 05/19/17 Folic Acid 1 mg PO DAILY@0800 #30 tab 05/20/17 Thiamine Hydrochloride [Vitamin B1] 100 mg PO BIDCM #60 tab 05/20/17 Surgical History: - - Cardiac ablation, L shoulder arthroscopic surgery. Psychiatric History: No pertinent psych hx Lives: Roommate Smoking Status: Former smoker Tobacco Use: Non-smoker Alcohol: Heavy - 3-5 drinks (gin/soda)/day Drugs: Marijuana - *Family History Maternal History Items: Hypertension Paternal History Items: Diabetes Review of Systems Constitutional: Reports: - - complete ROS negative except as documented in HPI - Physical Exam General: Alert HEENT: Normocephalic Neck: Supple Lungs: Clear to auscultation Cardiovascular: Regular rate Abdomen: Bowel Sounds Present Extremities: No cyanosis Skin: No rashes, - - laceration left scalp Musculoskeletal: No Tenderness to Palpation of Joints or Extremities Neurological: - - consious, alert, AoAx3, CN 2-12 grossly intact, power 5/5 all 4 extremities, no sensory loss, no cerebellar signs, Reflexes + B/L B/S/T/K/A, gait deferred Psych/Mental Status: Normal Affect Vital Signs Temp Pulse Resp BP Pulse Ox 98.0 F 82 16 141/97 H 97 05/20/17 11:54 05/20/17 11:54 05/20/17 11:54 05/20/17 11:54 05/20/17 11:54 Oxygen Delivery Method Room Air Weight: 99.8 kg Body Mass Index (BMI) 30.7 Intake and Output for Last 24 Hours 05/18/17 05/19/17 05/20/17 23:59 23:59 23:59 Intake Total 480 / 480 240 / 240 Output Total 0 / 0 Balance 480 / 480 240 / 240 Laboratory Tests Past 24 Hrs 05/20/17 05/20/17 05:50 05:50 WBC 7.2 RBC 5.34 Hgb 16.3 Hct 46.3 MCV 86.7 MCH 30.5 MCHC 35.2 RDW 13.1 RDW Differential 40.9 Plt Count 175 MPV 11.5 Sodium 142 Potassium 4.0 Chloride 109 H Carbon Dioxide 26.0 Anion Gap 7 BUN 11 Creatinine 0.89 Estim Creat Clear Calc 121.03 Est GFR (MDRD) Af Amer 123 Est GFR (MDRD) Non-Af 102 BUN/Creatinine Ratio 12.3 Glucose 116 H Calcium 8.7 Total Bilirubin 1.10 H AST 30 ALT 44 Alkaline Phosphatase 49 Total Protein 6.9 Albumin 3.9 Globulin 3.0 Albumin/Globulin Ratio 1.3 Assessment/Plan The patient is a 36 year old CM with PMH WPW syndrome s/p ablation, ETOH abuse and marijuana abuse admitted with seizure. Per patient he was working at [employer] and suddenly felt ingris vu, felt funny and weird, was told that his left UE started shaking, per ED documentation he had witnessed generalized seizures, he fell down, had laceration on the left scalp, was post ictal for about 15-20 minutes, denies any tongue bite, or urinary incontinence, does not remember the event, never had seizures in the past, did not have any more seizure since admission, drinks about 4-5 beers everyday, smokes marijuana. Had normal MRI brain and EEG on admission. At present denies any YUAN, visual disturbances, speech disturbances, focal motor weakness or sensory loss. UDS +ve for cannabinoids Impression New onset seizure- one episode of possible partial onset seizure with secondary generalization Plan -MRI brain w/w/o contrast reported normal -EEG was normal but showed apneas during sleep. Should get polysomnography as outpatient and follow up with sleep specialist. -No AEDs at present since patient had only one seizure. Patient also does not want to be on medications for seizures at present, he understands that he will need AEDs if he has another seizure event. -Patient counseled to quit drinking alcohol as he could have alcohol related seizures. Also counseled to stop smoking marijuana. He is counseled that he is at high risk of recurrent seizures if he continues to consume heavy alcohol and continues to smoke marijuana, which he understands -Patient counseled not to drive for 6 months since the seizure event. -Patient counseled not to climb at heights, on ladder/trees/roof, avoid working with sharp objects, avoid taking bath in bath tubs, but use shower instead, avoid swimming alone, and SUDEP risks discussed in detail -Labs reviewed. -GI/DVT prophylaxis -Seizure precautions -Fall precautions -Follow up with Neurology as outpatient in 6 weeks -Please call with questions if any -Thank you for allowing us to participate in patient's care and management I spent 60 minutes taking history, doing physical examination, reviewing medical records, coordinating care and counseling the patient and his mother. Code Visit Inpatient E&M: 78509 Init Hosp L3
--- NOTE | 2017-05-20 14:33 | CON.PCM_ITS ---
Problem List (1) Seizure Status: Acute Reason for Consult Date of Consultation: 05/20/17 Reason for Consultation: seizure History of Present Illness: The patient is a 36 year old CM with PMH WPW syndrome s/p ablation, ETOH abuse and marijuana abuse admitted with seizure. Per patient he was working at [employer] and suddenly felt ingris vu, felt funny and weird, was told that his left UE started shaking, per ED documentation he had witnessed generalized seizures, he fell down, had laceration on the left scalp, was post ictal for about 15-20 minutes, denies any tongue bite, or urinary incontinence, does not remember the event, never had seizures in the past, did not have any more seizure since admission, drinks about 4-5 beers everyday, smokes marijuana. Had normal MRI brain and EEG on admission. At present denies any YUAN, visual disturbances, speech disturbances, focal motor weakness or sensory loss. UDS + ve for cannabinoids.[] Past Medical History Past Medical History (Chronic Problems): Chronic Problems Vitamin D deficiency (Chronic) Cannabis use disorder, mild, abuse (Chronic) Ohbzw-Njndzlzyr-Ggsht (WPW) syndrome (Chronic) History of tobacco use (Chronic) Alcohol abuse (Chronic) Allergies No Known Allergies Allergy (Verified 05/19/17 14:12) Home Medications: Ambulatory Orders Medication Instructions Recorded Cholecalciferol (Vitamin D3) 1,000 unit PO DAILY 05/19/17 [Vitamin D3] Naproxen 250 mg PO PRN PRN 05/19/17 Folic Acid 1 mg PO DAILY@0800 #30 tab 05/20/17 Thiamine Hydrochloride [Vitamin B1] 100 mg PO BIDCM #60 tab 05/20/17 Surgical History: - - Cardiac ablation, L shoulder arthroscopic surgery. Psychiatric History: No pertinent psych hx Lives: Roommate Smoking Status: Former smoker Tobacco Use: Non-smoker Alcohol: Heavy - 3-5 drinks (gin/soda)/day Drugs: Marijuana - *Family History Maternal History Items: Hypertension Paternal History Items: Diabetes Review of Systems Constitutional: Reports: - - complete ROS negative except as documented in HPI - Physical Exam General: Alert HEENT: Normocephalic Neck: Supple Lungs: Clear to auscultation Cardiovascular: Regular rate Abdomen: Bowel Sounds Present Extremities: No cyanosis Skin: No rashes, - - laceration left scalp Musculoskeletal: No Tenderness to Palpation of Joints or Extremities Neurological: - - consious, alert, AoAx3, CN 2-12 grossly intact, power 5/5 all 4 extremities, no sensory loss, no cerebellar signs, Reflexes + B/L B/S/T/K/A, gait deferred Psych/Mental Status: Normal Affect Vital Signs Temp Pulse Resp BP Pulse Ox 98.0 F 82 16 141/97 H 97 05/20/17 11:54 05/20/17 11:54 05/20/17 11:54 05/20/17 11:54 05/20/17 11:54 Oxygen Delivery Method Room Air Weight: 99.8 kg Body Mass Index (BMI) 30.7 Intake and Output for Last 24 Hours 05/18/17 05/19/17 05/20/17 23:59 23:59 23:59 Intake Total 480 / 480 240 / 240 Output Total 0 / 0 Balance 480 / 480 240 / 240 Laboratory Tests Past 24 Hrs 05/20/17 05/20/17 05:50 05:50 WBC 7.2 RBC 5.34 Hgb 16.3 Hct 46.3 MCV 86.7 MCH 30.5 MCHC 35.2 RDW 13.1 RDW Differential 40.9 Plt Count 175 MPV 11.5 Sodium 142 Potassium 4.0 Chloride 109 H Carbon Dioxide 26.0 Anion Gap 7 BUN 11 Creatinine 0.89 Estim Creat Clear Calc 121.03 Est GFR (MDRD) Af Amer 123 Est GFR (MDRD) Non-Af 102 BUN/Creatinine Ratio 12.3 Glucose 116 H Calcium 8.7 Total Bilirubin 1.10 H AST 30 ALT 44 Alkaline Phosphatase 49 Total Protein 6.9 Albumin 3.9 Globulin 3.0 Albumin/Globulin Ratio 1.3 Assessment/Plan The patient is a 36 year old CM with PMH WPW syndrome s/p ablation, ETOH abuse and marijuana abuse admitted with seizure. Per patient he was working at [employer] and suddenly felt ingris vu, felt funny and weird, was told that his left UE started shaking, per ED documentation he had witnessed generalized seizures, he fell down, had laceration on the left scalp, was post ictal for about 15-20 minutes, denies any tongue bite, or urinary incontinence, does not remember the event, never had seizures in the past, did not have any more seizure since admission, drinks about 4-5 beers everyday, smokes marijuana. Had normal MRI brain and EEG on admission. At present denies any YUAN, visual disturbances, speech disturbances, focal motor weakness or sensory loss. UDS + ve for cannabinoids Impression New onset seizure- one episode of possible partial onset seizure with secondary generalization Plan -MRI brain w/w/o contrast reported normal -EEG was normal but showed apneas during sleep. Should get polysomnography as outpatient and follow up with sleep specialist. -No AEDs at present since patient had only one seizure. Patient also does not want to be on medications for seizures at present, he understands that he will need AEDs if he has another seizure event. -Patient counseled to quit drinking alcohol as he could have alcohol related seizures. Also counseled to stop smoking marijuana. He is counseled that he is at high risk of recurrent seizures if he continues to consume heavy alcohol and continues to smoke marijuana, which he understands -Patient counseled not to drive for 6 months since the seizure event. -Patient counseled not to climb at heights, on ladder/trees/roof, avoid working with sharp objects, avoid taking bath in bath tubs, but use shower instead, avoid swimming alone, and SUDEP risks discussed in detail -Labs reviewed. -GI/DVT prophylaxis -Seizure precautions -Fall precautions -Follow up with Neurology as outpatient in 6 weeks -Please call with questions if any -Thank you for allowing us to participate in patient's care and management I spent 60 minutes taking history, doing physical examination, reviewing medical records, coordinating care and counseling the patient and his mother. Code Visit Inpatient E&M: 96886 Init Hosp L3
--- NOTE | 2017-05-20 14:49 | NURSING ---
Reviewed and agreed on all charting with Jinny Wren RN
== END 2017-05-20 14:34 | disposition home or self-care (01) | DRG 42 ==
LOC: ED 16:01 → PCU 18:10
PROVIDERS: Emergency Medicine; Admitting Provider Family Medicine; Emergency Provider Emergency Medicine; Visit Provider Internal Medicine
DX: R56.9 Unspecified convulsions (principal); E55.9 Vitamin D deficiency, unspecified; W19.XXXA Unspecified fall, initial encounter; F12.20 Cannabis dependence, uncomplicated; I45.6 Pre-excitation syndrome; S01.01XA Laceration without foreign body of scalp, initial encounter; R03.0 Elevated blood-pressure reading, without diagnosis of hypertension; Z87.891 Personal history of nicotine dependence; F10.20 Alcohol dependence, uncomplicated; K21.9 Gastro-esophageal reflux disease without esophagitis
CPT/HCPCS: 36415; 70450; 70553; 71045; 80048; 80053; 80076; 80307; 80320; 81001; 82962; 83735; 84100; 84443; 84484; 85025; 85027; 85610; 85730; 90471; 90715; 93005; 95819; 99285; A9585; A4216; G0480

== ENCOUNTER 2017-06-29 13:30 | Outpatient (RCR) | payer OTHER, SELFPAY ==
--- NOTE | 2017-06-01 11:46 | HP.PTEVAL_ITS ---
Patient's Visit Information CY RAHMAN is a 36 year old M referred to Physical Therapy by Out of Town Doctor KAROLINA WILKINS with a diagnosis of Left Shoulder Pain. Date of Evaluation: 06/01/17 Physical Therapist: Elba Dominique - Visit Plan Frequency: 2x /Week Duration: 4 Weeks Plan: Focus on scapular s/s - Subjective Subjective: Patient reports that he has left shoulder pain and its getting worse. Had MRI about a month and goes back on the for the results. Lives with pain along the top of the shoulder and along the scapula. Describes pain as dull and when he does something it throbbs. Agg: lifting, anything overhead. Worst: 11/01 lives at a 9/10 does not change. Had a seizure for the first time- May 20- they are unsure- the MRI/CT Scan/EEG which showed nothing. If he has another one they will do something. Pain radiates to the neck. Eases: alcohol, marijuana for relief. Does not see a chiropractor or any other MD's. Does have N/T in the hand when he uses it a lot. 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 No YUAN, blurred vision, dizziness. Sleep: not disturbed- sleeps in all positions. PMHx: heart ablasion, sleep apnea. Meds: methocarbinol, Vitamin D, Vitamin B - Objective Posture: FH, RS, Increased kyphosis- can correct with VC's but does not maintain. Palpation: tender along medial boder of the scapula and upper trap. ROM: Flexion: 150 degrees, Abd: 160 degrees IR/ER: wnl. Strength: Shoulder: 4+/ 5 throughout Scap: fair minus - Goals Goal 1:: Patient will be I with HEP and progression Goal Time Frame: 4-6 Weeks Goal 2:: Patinet will demo full AROM of the shoulder to ease ADL's. Goal Time Frame: 4-6 Weeks Goal 3:: Patient will maintain proper posture t/o tx session to demo increased scap s/s Goal Time Frame: 4-6 Weeks - Rehabilitation Potential Physical Therapy Diagnosis: Patient presents with hypmobility- he has decreased ROM, strength and muscular endurance leading to poor posture and increased pain - Anticipated Interventions Patient/Client Instruction: Educate patient on: Benefits of Fitness Program For the Purpose of:: To improve performance and independence with ADL's Therapeutic Exercise to Include: Strength training, Endurance training, Body mechanics, Postural training, Flexibilty training, Passive ROM, Active ROM, Scapular Strength/Stabilization For the Purpose of:: To improve muscle performance and motor function TENS: Yes Cryotherapy (ice pack, ice massage): Yes Thermo therapy (hot pack): Yes Ultrasound (thermal/non thermal): Yes For the Purpose of:: To decrease pain Thank you for the opportunity to evaluate your patient. For Medicare and Medicare HMO plans, please review the plan of care and approve it. It will need to be FAXED BACK to us at [phone] for Medicare purposes. Please let me know if there are questions or concerns regarding this plan of care. Physician Signature: Date:
--- NOTE | 2017-06-29 14:19 | HP.PTDCSUM ---
HP - PT D/C Summary It has been my pleasure to treat CY RAHMAN under orders from KAROLINA WILKINS, for the diagnosis of Left Shoulder Pain for a total of 9 visit(s). Discharge Date: Please see the following information for a summary of their discharge status. - Subjective Subjective: Patient reports that he is learning towards surgery-just wants to talk to one more doctor. Is not sure exactly when the sugery would happen. The shoulder still feels the same but he thinks he is getting stronger. - Pain Left Shoulder Pain Intensity (Out of 10): 9 - Overall Improvement % Improvement: 100 - Objective Objective/Function: Posture: FH, RS, Increased kyphosis- can correct with VC's but does not maintain. Palpation: tender along medial boder of the scapula and upper trap. ROM: Flexion: 170 degrees, Abd: 160 degrees IR/ER: wnl. Strength: Shoulder: 5/5 throughout Scap: fair minus - Goals Goal 1:: Patient will be I with HEP and progression Goal Progress: Goal Met Goal 2:: Patinet will demo full AROM of the shoulder to ease ADL's. Goal Progress: Progressing Goal 3:: Patient will maintain proper posture t/o tx session to demo increased scap s/s Goal Progress: Progressing - Plan Plan: Discharge to HEP- return to MD - D/C Information If there are questions or concerns regarding this patient's physical therapy, please feel free to call me at [phone]. Thank you for the referral of this patient. Sincerely, Elba Dominique
== END 2017-06-29 19:00 | disposition home or self-care (01) ==
LOC: PT 13:30
DX: M75.112 Incomplete rotator cuff tear or rupture of left shoulder, not specified as traumatic (principal)
CPT/HCPCS: 97110; 97161; 97530; G8978; G8979

== ENCOUNTER 2018-07-07 13:24 | Emergency (ER) | payer OTHER, SELFPAY ==
[2018-07-07 13:26] VITALS: BP 150/103; PULSE 104; PULSE 115; RESP 18; TEMP 36.9; O2SAT 95; BMI 31.8
--- NOTE | 2018-07-07 13:30 | CT_ITS ---
STUDY: CT BRAIN WITHOUT CONTRAST REASON FOR EXAM: Male, 37 years old. History of seizure. RADIATION DOSAGE (If Supplied By Facility): CTDIvol = ( 60.81 ) mGy, DLP = ( 1044.28 ) mGycm TECHNIQUE: Transaxial CT imaging of the brain was performed without administration of intravenous contrast material. Individualized dose optimization techniques were used for this CT. COMPARISON: Comparison is made with prior study dated May 19, 2017. FINDINGS: Normal soft tissue structures. Normal calvarium. Normal size ventricles and extra-axial spaces for the patient's age. Normal white matter tracts of the cerebral hemispheres. Normal basal ganglia and thalami. Normal brainstem. Normal cerebellum. There is no intracranial hemorrhage. There are no findings of an acute ischemic infarction. Normal visualized paranasal sinuses. CT/Brain/Head without Contrast IMPRESSION: Normal unenhanced CT scan of the brain. Electronically Signed: Marcio Candelario, at 14:11 EDT , Service support ,
--- NOTE | 2018-07-07 13:31 | EKG12_ITS ---
Test Reason : SEIZURE Blood Pressure : / mmHG Vent. Rate : 106 BPM Atrial Rate : 106 BPM P-R Int : 090 ms QRS Dur : 122 ms QT Int : 370 ms P-R-T Axes : 055 027 037 degrees QTc Int : 491 ms Sinus tachycardia Consider Mwhdj-Xkfirjgpj-Bntqd syndrome Abnormal ECG Confirmed by HUGO BARRIOS, SOPHIA ([id number]), script editor NELDA SANTORO ([id number]) on 07/11/2018 4:16:49 PM Referred By: CHRISTOPHER Confirmed By:SOPHIA ARIAS MD
--- NOTE | 2018-07-07 13:32 | ED.VISSUMM ---
- ER Visit Summary Date of Service: 07/07/18 Chief Complaint: [Seizure History of Present Illness: The patient is a 37 M who presents with 5 to 8-minute seizure at work. He had a previous seizure which was thought to be secondary to decreased alcohol use, he said he did have a few beers yesterday. He denies any head injury, he denies any chest pain shortness of breath fever or chills. He apparently was slightly postictal but now he is lucid coherent and back to normal mentation. Physical Examination: Not appear in acute distress. Moist mucous membranes, no obvious facial deformity. No tongue abrasion No C-spine tenderness supple neck. Regular rate and rhythm without any obvious murmurs Clear lungs bilaterally speaking in full sentences without any obvious respiratory distress Abdomen soft and nontender no guarding or rebound Moves all extremities without any difficulty or pain. Skin does not show any obvious rashes or lesions, no trauma. Alert oriented ?3 with no gross focal deficit Emergency Department Course and Treatment: Patient is ruled out medically. He will need to follow-up with neurology for EEG. There is a high likelihood that this is a withdrawal seizure, patient does not want detox. I discussed risks and benefits of antiepileptics, we will defer them for now. I discussed the patient with neurology. Discharge stable condition Impression: [Seizure] This note was generated with [employer] dictation software. It may contain incorrect words, spelling, and punctuation that were not noted in review of the chart prior to signing ED Disposition - Plan for ED Patient: Disposition: Home or Assisted Living Instructions: ED Seizure New Onset Unk Cause Referrals: [facility] [Primary Care Provider] - Mario Rocha MD [STAFF PHYSICIAN] - 3-5 Days
[2018-07-07 13:39] LABS: Absolute Lymphocyte Count 2.77 X10^3/ul (0.83-4.51); Absolute Neutrophil Count 5.3 X10^3/uL (2.0-7.7); Basophil# 0.03 X10^3/uL; Basophil% 0.3 % (0-1); Eosinophil# 0.18 X10^3/uL; Hemoglobin 17.5 g/dl (13.0-16.5); Lymphocyte # 2.77 X10^3/ul (4.0); Lymphocyte % 30.9 % (19-41); Mean Corpuscular Hgb 31.1 pg (27.0-32.0); Mean Platelet Vol. 11.1 fl (6.2-12.0); Monocyte# 0.64 X10^3/uL; Monocyte% 7.1 % (0-10); Neutrophil # 5.29 X10^3/uL (2.7-7.7); Neutrophil % 59.1 % (47-70); Platelet Count 174 K/mm3 (150-450); RBC Distribution Width CV 13.1 % (11.6-14.6); RBC Distribution Width SD 42.7 fl (35.1-43.9); Red Blood Count 5.62 M/mm3 (4.6-6.2)
[2018-07-07 13:44] LABS: POSITIVE COUNT NO; POSITIVE DIFFERENTIAL NO; POSITIVE MORPHOLOGY NO
[2018-07-07] MEDS: 0.9% Normal Saline 1,000 ML 1000 ML IV (13:45)
[2018-07-07 13:54] LABS: ALB/GLOB Ratio 1.2 RATIO (0.9-2.4); AST(SGOT) 26 U/L (15-37); Alanine Aminotransfer ALT/SGPT 57 U/L (16-61); Albumin, Serum 4.4 g/dL (3.2-5.0); Alkaline Phosphatase 69 U/L (45-117); Anion Gap 18 (5-15); BUN 11 mg/dL (7-18); BUN/Creat Ratio 8.5 RATIO (10-20); Calcium,Total 8.9 mg/dL (8.5-10.1); Chloride 107 mmol/L (98-107); Creatinine, Serum 1.29 mg/dL (0.70-1.30); EST Glomerular Filtration Rate 66 mL/min (>60); Est Glom Filt Rate - Afr Amer 80 mL/min (>60); Estimated Creatinine Clearance 82.69 ml/min; Globulin 3.6 g/dL (2.2-4.2); Glucose 119 mg/dL (74-106); Sodium Level 139 mmol/L (136-145)
[2018-07-07 14:14] LABS: Alcohol, Blood (Medical)-Serum < 3.0 mg/dL
[2018-07-07] MEDS: LORazepam 2 MG/ML Syringe 0.5 MG IV (14:54)
--- NOTE | 2018-07-07 14:56 | NURSING ---
DR HARE PAGED
--- NOTE | 2018-07-07 14:57 | NURSING ---
DR HARE CALLED BACK
[2018-07-07 15:38] VITALS: PULSE 82; RESP 17; O2SAT 97
== END 2018-07-07 15:44 | disposition home or self-care (01) ==
PROVIDERS: Emergency Provider Emergency Medicine
DX: R56.9 Unspecified convulsions (principal)
CPT/HCPCS: 70450; 80053; 80320; 85025; 93005; 96361; 96374; 99285; J7030; A4216; G0480

== ENCOUNTER 2020-02-12 12:48 | Emergency (ER) | payer OTHER, SELFPAY ==
[2020-02-12 12:51] VITALS: BP 154/99; PULSE 85; RESP 22; TEMP 36.9; O2SAT 95; BMI 28.9
--- NOTE | 2020-02-12 13:13 | ED.DCSUM_ITS ---
- ER Visit Summary Date of Service: 02/12/20 Chief Complaint: Seizure History of Present Illness: The patient is a 39 M with a history of seizures. He takes Keppra 1000 mg time release once a day. He has been out for at least 2 days. He is expecting his refill in the mail, but there was a delay. He was notified that it is due for delivery today. He had a seizure shortly prior to arrival. Full body shaking. He says he did not have any injuries. He has no new pain or signs of injuries. He said his symptoms lasted for several minutes and then resolved. No other complaints. Physical Examination: Afebrile and vital signs unremarkable. Alert and oriented. No acute distress. Head and neck are atraumatic. Cranial nerves grossly intact. Heart regular. Lungs clear. Abdomen soft. No focal or lateralizing neurologic abnormalities. Test Results: None indicated Emergency Department Course and Treatment: Patient had seizure precautions and monitoring. He had a breakthrough seizure from being out of his medication. He was treated with a dose of Keppra here. He expects to have his refill delivered today. He was given a prescription should he need it. He will be discharged home with seizure precautions. Treatment Plan: As above Disposition: Discharge Impression: Breakthrough seizure This note was generated with [employer] dictation software. It may contain incorrect words, spelling, and punctuation that were not noted in review of the chart prior to signing ED Disposition - Plan for ED Patient: [facility]errals[facility] [Primary Care Provider] -
--- NOTE | 2020-02-12 13:15 | ED.DEP ---
ED Disposition - Plan for ED Patient: Instructions: ED Seizure, Recurrent (Adult) Prescriptions: Levetiracetam [Keppra Xr] 1,000 mg PO DAILY 30 Days #60 tab.sr.24h Prescription Printed Referrals: [facility] [Primary Care Provider] -
[2020-02-12] MEDS: levETIRAcetam IV 1,000 MG/100 ML BAG 400 MG IV (13:47)
[2020-02-12 14:24] VITALS: BP 126/96
== END 2020-02-12 14:25 | disposition home or self-care (01) ==
LOC: ED 13:45
PROVIDERS: Emergency Provider Emergency Medicine
DX: G40.909 Epilepsy, unspecified, not intractable, without status epilepticus (principal); Z79.899 Other long term (current) drug therapy
CPT/HCPCS: 36415; 96365; 99285; A4216

== ENCOUNTER → 2020-07-01 10:08 | Outpatient (CLI) | payer OTHER, SELFPAY ==
--- NOTE | 2020-07-01 10:22 | MRI_ITS ---
STUDY: MRI LEFT SHOULDER WITH CONTRAST (ARTHROGRAM ) REASON FOR EXAM: Male, 39 years old. MR LEFT SHOULDER ARTHROGRAM INSTABILITY/LABRAL EVALUATION TECHNIQUE: Standardized fat and water weighted pulse sequences were obtained in all 3 orthogonal planes. Please see dedicated arthrogram technique. Additional ABER view obtained. COMPARISON: None. FINDINGS: Adequate capsular distention secondary to arthrogram technique. Biceps labral anchor intact (axial image 7 series 9). Small superior labral anterior posterior tear at the 11 o''clock to 1 o''clock positions (axial images 8 through 10 series 9). Capsular ligaments intact. Normal rotator cuff interval. Glenohumeral cartilage preserved. Mild acromioclavicular joint arthrosis. No subacromium subdeltoid fluid. Minimal rotator cuff tendinosis at the supraspinatus without tear. No muscle atrophy. Intact coracohumeral and coracoacromial ligaments. Normal quadrilateral space. Normal axillary space. Normal deltoid muscle. Normal trapezius muscle. MRI/Upper Ext Jt Only W/Contrast IMPRESSION: Small SLAP type II tear Rotator cuff intact with minimal tendinosis Mild AC joint arthrosis Electronically Signed: Narendra Sage DO at 13:56 EDT Tel , Service support ,
--- NOTE | 2020-07-01 10:35 | RAD_ITS ---
CLINICAL HISTORY: Male, 39 years old. Left shoulder instability. PROCEDURE: ARTHROGRAM - LEFT SHOULDER CONSENT: The procedure as well as the benefits and possible complications were explained to the patient. Informed consent was obtained. FLUOROSCOPY TIME (if supplied): (72 seconds) minutes/seconds. 4 images were obtained. Injection Information: 10 cc of dilute MRI contrast. Number of images obtained: 4 TECHNIQUE: (All elements of maximal sterile barrier technique followed, including US elements as applicable) The patient was in the supine position. Overlying skin was prepped and draped in usual sterile fashion. Following local anesthetic application under direct fluoroscopic guidance, a 22-gauge spinal needle was placed into the shoulder joint. 2 cc of ISOVUE 300 was injected for confirmation. 10 cc of dilute MRI contrast was then injected. RAD/Arthrogram Shoulder w/ MRI IMPRESSION: Successful left shoulder arthrogram for MRI examination. The patient tolerated the procedure well. Electronically Signed: Marcio Candelario MD at 11:49 EDT , Service support ,
== END ==
DX: M25.312 Other instability, left shoulder (principal)
CPT/HCPCS: 23350; 73222; 77002; A9575; Q9967

== ENCOUNTER → 2020-11-12 08:56 | Outpatient (CLI) | payer OTHER, SELFPAY ==
--- NOTE | 2020-11-12 09:13 | RAD_ITS ---
CLINICAL HISTORY: Male, 39 years old. Right shoulder pain. PROCEDURE: ARTHROGRAM - RIGHT SHOULDER. CONSENT: The procedure as well as the benefits and possible complications including infection and bleeding were explained to the patient. Informed consent was obtained. FLUOROSCOPY TIME (if supplied): (21 seconds) minutes/seconds. 4 images were obtained. Injection Information: 10 cc of dilute Dotarem Number of images obtained: 4 TECHNIQUE: (All elements of maximal sterile barrier technique followed, including US elements as applicable) The patient was in the supine position. Overlying skin was prepped and draped in the usual sterile fashion. Following local anesthetic application and under direct fluoroscopic guidance, a 22-gauge spinal needle was placed into the shoulder joint. 2 cc of ISOVUE 300 was injected for confirmation. Following this, 10 cc of dilute MRI contrast was injected. Patient tolerated procedure well. RAD/Arthrogram Shoulder w/ MRI IMPRESSION: Successful right shoulder arthrogram for MRI imaging. Electronically Signed: Marcio Candelario MD at 11:06 EDT , Service support ,
[2020-11-12] MEDS: Iopamidol 10 ML in Syringe 1 EACH 600 ML INTRAARTIC (09:30)
[2020-11-12] MEDS: Lidocaine 2% (5ml sdv) 5 ML VIAL.MPF INFILT (09:30)
--- NOTE | 2020-11-12 10:07 | MRI_ITS ---
STUDY: MR RIGHT SHOULDER ARTHROGRAPHY REASON FOR EXAM: Right shoulder pain for about a year, evaluate labrum. TECHNIQUE: Standardized fat and water weighted pulse sequences were obtained in all 3 orthogonal planes after intra-articular instillation of dilute Dotarem. COMPARISON: Arthrographic images preceding the MRI. FINDINGS: Although there is some image degradation secondary to patient motion, there is still significant diagnostically useful information available from this examination. Normal supraspinatus tendon. Normal infraspinatus tendon. Normal subscapularis tendon. Normal teres minor tendon. Normal supraspinatus muscle. Normal infraspinatus muscle. Normal subscapularis muscle. Normal teres minor muscle. Normal glenohumeral articulation. There is very mild cystic change of the posterior aspect of the greater tuberosity. There is a SLAP lesion (T1 coronal images 9, 10; T1 axial image 6). Normal intracapsular long biceps tendon. Normal capsulo- ligamentous complex. Normal rotator interval. Normal acromioclavicular articulation. There is a Type II morphology (curved), with a neutral orientation. There is a small volume of subacromial-subdeltoid bursal fluid (T2 sagittal images 9, 10). Normal visualized coracohumeral and coracoacromial ligaments. There is mild iatrogenic edema in the proximal anterior deltoid muscle. Normal trapezius muscle. MRI/Upper Ext Jt Only W/Contrast IMPRESSION: SLAP lesion. Mild subacromial-subdeltoid bursitis. Electronically Signed: Angel Barone MD at 12:57 EDT Tel , Service support ,
== END ==
DX: M25.511 Pain in right shoulder (principal)
CPT/HCPCS: 23350; 73222; 77002; A9575; Q9967

== ENCOUNTER 2022-03-14 22:11 | Inpatient (IN) | payer OTHER, SELFPAY ==
[2022-03-14 22:12] VITALS: BP 149/103; PULSE 108; RESP 22; TEMP 35.8; O2SAT 97; BMI 28.1
[2022-03-14] MEDS: LORazepam 2 MG/ML Syringe IM (22:21)
[2022-03-14 22:52] LABS: Absolute Lymphocyte Count 2.63 X10^3/uL (0.83-4.51); Absolute Neutrophil Count 5.2 X10^3/uL (2.0-7.7); Basophil# 0.08 X10^3/uL; Basophil% 0.9 % (0-1); Eosinophil# 0.11 X10^3/uL; Eosinophils% 1.2 % (0-5); Hematocrit 52.8 % (40-54); Hemoglobin 16.8 g/dL (13.0-16.5); Lymphocyte # 2.63 X10^3/ul (0.83-4.51); Lymphocyte % 28.3 % (19-41); Mean Corp Hgb Conc 31.8 g/dL (32-36); Mean Corpuscular Hgb 31.5 pg (27.0-32.0); Mean Corpuscular Volume 99.1 fL (80-94); Monocyte# 1.21 X10^3/uL; NRBC Flagged by Analyzer 0 % (0-5); Neutrophil # 5.24 X10^3/uL (2.7-7.7); Neutrophil % 56.3 % (47-70); Platelet Count 218 K/mm3 (150-450); RBC Distribution Width CV 12.7 % (11.6-14.6); RBC Distribution Width SD 47.2 fl (35.1-43.9); Red Blood Count 5.33 M/mm3 (4.6-6.2); White Blood Count 9.3 K/mm3 (4.4-11.0)
--- NOTE | 2022-03-14 22:57 | EX.ED.DYSGE1 ---
HPI History of Present Illness Chief Complaint: Seizure Informant: patient and spouse/S.O. Narrative Narrative: Brought in by EMS for recurrent focal seizures at home. Per significant other history of grand mal and focal [facility] He is on Keppra 1500 mg twice a day. He has had seizures for the past 5 years. He has been on only Keppra. States he has been taking it. He does medical marijuana for seizures. Per significant other he does drink daily however only 1-2 drinks. He had 1 drink today. Noted throughout the day has had focal seizures with staring episodes lasting 10 minutes and resolved. She has had 4 at home. EMS was contacted had one with them. On arrival he was given 2 mg IM Ativan prior to my evaluation. He is awake during exam he denies cough denies recent vomiting or diarrhea denies any urinary symptoms. However during exam had a focal seizure leading to a grand mal seizure total 5 minutes. Per significant other intermittent breakthrough seizures however no recurrent ones like this. He was seen at the [facility] on Wednesday he had a previous ear injury hematoma he was placed on antibiotics and anti-inflammatory. Prior similar symptoms: Yes PFSH PFSH Home Medications levetiracetam 500 mg tablet 3,000 mg PO DAILY 02/12/20 [History Last Taken Unknown] naproxen 500 mg tablet 500 mg PO BID 02/12/20 [History Last Taken Unknown] Allergy/AdvReac Type Severity Reaction Status Date / Time No Known Allergies Allergy Verified 02/12/20 12:49 Social History Smoking Status: Former smoker ROS ROS ED Constitutional Constitutional ED: Denies chills, fever(s) or sweats Eyes Eyes: Denies change in vision ENT ENT ED: Denies dysphagia or sore throat Cardiovascular Cardiovascular: Denies chest pain, leg edema, palpitations or racing heartbeat Respiratory/Chest Respiratory/Chest: Denies cough, dyspnea or dyspnea on exertion Gastrointestinal Gastrointestinal: Denies abdominal pain, diarrhea, nausea or vomiting Genitourinary Genitourinary ED: Denies dysuria, hematuria or urinary frequency Musculoskeletal Musculoskeletal: Denies back pain, extremity pain or neck pain Integumentary Denies rash or wounds Neurologic Neurologic: Denies headache(s), paresthesias or weakness EXAM Physical Exam Const Vital Signs: 03/14/22 22:12 03/14/22 23:05 03/15/22 00:19 Temperature 96.4 F L Temperature Source Temporal Pulse Rate 108 H 113 H 109 H Respiratory Rate 22 H 20 H 15 Blood Pressure 149/103 H 118/80 126/103 H Blood Pressure Mean 118 92 110 Pulse Ox 97 92 95 Oxygen Delivery Method Room Air Room Air Room Air Positive well nourished and well developed Constitutional Narrative: Awake answering questions moving all extremities prior to his seizure during exam. General Appearance ED: well developed and NAD HEENT Reports moist mucous membranes HEENT Narrative: No tongue abrasion or laceration. Right auricular: Hematoma improving on the inner auricular region. Skin intact. normocephalic and atraumatic Eyes PERRL, EOMs intact bilaterally and conjunctivae normal General Eye ED: Yes normal appearance of both eyes Neck no lymphadenopathy and supple General: Negative for tenderness Chest Wall Chest: Negative for tenderness Resp normal respiratory effort and normal air movement Effort and Inspection: symmetric chest movement; Negative for respiratory distress Cardio regular rate, regular rhythm and no murmurs Peripheral Pulses: pulses 2+ throughout GI normal to inspection, nondistended, normoactive bowel sounds and non-tender Palpation: Negative for guarding or rebound tenderness present Back/Spine no CVA tenderness and no thoracic nor lumbar tenderness Extremity normal to inspection General Extremety ED: Negative for edema or tenderness General Extremity: Negative for edema Neuro oriented x3, CN's II-XII intact bilaterally and no sensory deficits noted Sensorium / Orientation: awake and alert Skin no rashes or lesions noted and no wounds MDM MDM MDM Narrative Medical decision making narrative: Patient presenting with multiple recurrent seizures from history today 1 witnessed by EMS. He was denying any symptoms or any prodromal symptoms of his seizures prior to having 1 during my evaluation. At 2238, patient started to have a partial seizure with staring to the left shaking sweaty 3 minutes later grand mal for 2 minutes which resolved. History of daily alcohol per significant other however not high amounts. They understand this can lower his threshold. At this time differentials recurrent seizures. We will check labs, alcohol, urine with tox screen. We will plan for admission. 2315: Reevaluation awake no seizure activities. Potassium 3.1 this will be orally replaced sodium 143. He had elevated AST twice a level ALT likely alcoholic hepatitis. Alcohol level pending. Hemoglobin 16.8 0005: Alcohol 4. Patient reports he had about 2-3 drinks today. He states he drinks daily 4-5 drinks of vodka. He reports does not wake up with tremors never had any withdrawal seizures in the past. he states he is taking his medications. 0010: I spoke with hospitalist Dr. Alfonso for plan admission however he requests telemetry neurology consult through the ED prior to being transported upstairs. 0025: Spoke with neurologist Dr. Jj, will load with Depakene 20mg/kg, will plan 500 mg twice daily. Lab Data Attestation: I reviewed the patient's lab results. Labs: Laboratory Results - last 24 hr 03/14/22 03/14/22 03/14/22 22:15 22:15 22:55 WBC 9.3 RBC 5.33 Hgb 16.8 H Hct 52.8 MCV 99.1 H MCH 31.5 MCHC 31.8 L RDW Std Deviation 47.2 H RDW Coeff of Carmine 12.7 Plt Count 218 MPV 11.0 Immature Gran % (Auto) 0.300 Neut % (Auto) 56.3 Lymph % (Auto) 28.3 [place] % (Auto) 13.0 H Eos % (Auto) 1.2 Baso % (Auto) 0.9 Absolute Neuts (auto) 5.2 Absolute Lymphs (auto) 2.63 Nucleated RBC % 0 Sodium 143 Potassium 3.1 L Chloride 105 Carbon Dioxide 14.0 L Anion Gap 24 H BUN 13 Creatinine 1.21 Estim Creat Clear Calc 84.70 Est GFR (MDRD) Af Amer 85 Est GFR (MDRD) Non-Af 70 BUN/Creatinine Ratio 10.7 Glucose 129 H Calcium 9.2 Total Bilirubin 0.70 AST 333 H ALT 167 H Alkaline Phosphatase 77 Total Protein 8.6 H Albumin 4.7 Globulin 3.9 Albumin/Globulin Ratio 1.2 Urine Color Urine Clarity Urine pH Ur Specific [place] Urine Protein Urine Glucose (UA) Urine Ketones Urine Occult Blood Urine Nitrite Urine Bilirubin Urine Urobilinogen Ur Leukocyte Esterase Urine RBC Urine WBC Ur Squamous Epith Cells Urine Bacteria Urine Mucus Urine Opiates Screen Urine Methadone Screen Ur Barbiturates Screen Ur Phencyclidine Scrn Ur Amphetamines Screen MDMA (Ecstasy) Screen U Benzodiazepines Scrn Urine Cocaine Screen U Cannabinoids Screen Ur Drug Screen Comment Ethyl Alcohol 4.0 01/21/23 01/21/23 23:59 23:59 WBC RBC Hgb Hct MCV MCH MCHC RDW Std Deviation RDW Coeff of Carmine Plt Count MPV Immature Gran % (Auto) Neut % (Auto) Lymph % (Auto) [place] % (Auto) Eos % (Auto) Baso % (Auto) Absolute Neuts (auto) Absolute Lymphs (auto) Nucleated RBC % Sodium Potassium Chloride Carbon Dioxide Anion Gap BUN Creatinine Estim Creat Clear Calc Est GFR (MDRD) Af Amer Est GFR (MDRD) Non-Af BUN/Creatinine Ratio Glucose Calcium Total Bilirubin AST ALT Alkaline Phosphatase Total Protein Albumin Globulin Albumin/Globulin Ratio Urine Color Yellow Urine Clarity Clear Urine pH 7.0 Ur Specific [place] 1.020 Urine Protein 100 H Urine Glucose (UA) Normal Urine Ketones 50 H Urine Occult Blood 50 H Urine Nitrite Positive H Urine Bilirubin Negative Urine Urobilinogen Normal Ur Leukocyte Esterase 100 H Urine RBC 0 SEEN Urine WBC 5-10 SEEN Ur Squamous Epith Cells 0 SEEN Urine Bacteria RARE Urine Mucus 0 SEEN Urine Opiates Screen NEGATIVE Urine Methadone Screen NEGATIVE Ur Barbiturates Screen NEGATIVE Ur Phencyclidine Scrn NEGATIVE Ur Amphetamines Screen NEGATIVE MDMA (Ecstasy) Screen NEGATIVE U Benzodiazepines Scrn NEGATIVE Urine Cocaine Screen NEGATIVE U Cannabinoids Screen POSITIVE H Ur Drug Screen Comment Ethyl Alcohol Discharge Plan Dx/Rx/DC Orders Clinical Impression: Recurrent seizures, Seizure disorder, Alcoholic hepatitis, Hypokalemia Disposition Disposition: Acute Care Hospital [facility]
[2022-03-14 23:05] VITALS: BP 118/80; PULSE 113; RESP 20; O2SAT 92
[2022-03-14 23:12] LABS: ALB/GLOB Ratio 1.2 RATIO (0.9-2.4); AST(SGOT) 333 U/L (15-37); Alanine Aminotransfer ALT/SGPT 167 U/L (16-61); Albumin, Serum 4.7 g/dL (3.2-5.0); Alkaline Phosphatase 77 U/L (45-117); Anion Gap 24 (5-15); BUN 13 mg/dL (7-18); BUN/Creat Ratio 10.7 RATIO (10-20); Calcium,Total 9.2 mg/dL (8.5-10.1); Chloride 105 mmol/L (98-107); Creatinine, Serum 1.21 mg/dL (0.70-1.30); EST Glomerular Filtration Rate 70 mL/min (>60); Est Glom Filt Rate - Afr Amer 85 mL/min (>60); Globulin 3.9 g/dL (2.2-4.2); Glucose 129 mg/dL (74-106); Potassium 3.1 mmol/L (3.5-5.1); Protein, Total 8.6 g/dL (6.4-8.2); Sodium Level 143 mmol/L (136-145)
--- NOTE | 2022-03-14 23:15 | NURSING ---
THIS FOLDER INSPECTOR CONTACTED [facility] FOR ADMISSION AND THEY SAID TO CALL BACK WEDNESDAY EXT [phone].
--- NOTE | 2022-03-14 23:42 | ED.RN ---
patient not able to follow directions and concern for choking due to mental status. Holding PO meds until more aware of surroundings and able to follow directions.
[2022-03-14] MEDS: Potassium Chloride Oral Tablet 20 MEQ 40 MEQ PO (23:50)
[2022-03-15] VITALS (8 sets, daily range): BP systolic 126–158; BP diastolic 60–103; PULSE 78–109; RESP 15–18; TEMP 36.6–37; O2SAT 95–98; BMI 26.2
[2022-03-15 00:04] LABS: Mucous, Urine 0 SEEN /hpf (<or=2+); Red Blood Cells-Urine 0 SEEN /hpf (0-5); Squamous Epithelial Cells - UA 0 SEEN /hpf (0-5)
--- NOTE | 2022-03-15 00:05 | TELEMED_ITS ---
[facility] has confirmed receipt of a request for visit. This document confirms receipt of the order initiating the consult. To find the results of the consultation, please view the patient's reports for the scanned Telemed Consult.
[2022-03-15 00:10] LABS: Color, Urine Yellow (Yellow); Glucose, Dipstick Normal (Normal); Ketone-Dipstick 50 mg/dl (Negative); Leukocyte Esterase-Dipstick 100 /ul (Negative); Nitrite-Dipstick Positive (Negative); Occult Blood-Urine 50 /ul (Negative); Protein-Dipstick 100 mg/dl (Negative); Urine Bilirubin Dipstick Negative (Negative); Urine Clarity Clear (Clear); Urine Urobilinogen Normal (Normal)
[2022-03-15 00:32] LABS: Bacteria RARE /hpf (None Seen); White Blood Cells 5-10 SEEN /hpf (0-5)
[2022-03-15 00:33] LABS: Amphetamine Urine VISTA NEGATIVE (<1000 ng/mL); Barbiturate Urine VISTA NEGATIVE (< 200 ng/mL); Benzodiazepine Urine VISTA NEGATIVE (< 200 ng/mL); Cocaine Urine VISTA NEGATIVE (< 300 ng/mL); Ecstacy Urine VISTA NEGATIVE (< 500 ng/mL); Methadone Urine VISTA NEGATIVE (< 300 ng/mL); PCP Urine VISTA NEGATIVE (< 25 ng/mL); THC Urine VISTA POSITIVE (< 50 ng/mL); Vista UDS pH Range 5
--- NOTE | 2022-03-15 01:28 | PCM.HP.STD ---
HPI - General General Date of Admission: 03/15/22 Date of Service: 03/15/22 Chief Complaint: Multiple seizures HPI Narrative CY RAHMAN, is a 41 M with a significant history of temporal lobe epilepsy; bilateral shoulder injury status post repairs who presents to the emergency department with multiple seizures. Reportedly patient had multiple seizures with each lasting about 10 minutes. He had four multiple seizures at home. En-route to the hospital he had 1 other seizure with paramedics. Emergency department doctor reported one focal to grand mal seizures that happened in his presence while at the ED. Patient has no recollection of seizure-like activities. [facility] Medical History (Updated 03/15/22 @ 01:[address] Carlos Manuel Alfonso MD) Recurrent seizures Home Medications levetiracetam 500 mg tablet 3,000 mg PO DAILY 02/12/20 [History Last Taken Unknown] naproxen 500 mg tablet 500 mg PO BID 02/12/20 [History Last Taken Unknown] Allergy/AdvReac Type Severity Reaction Status Date / Time No Known Allergies Allergy Verified 02/12/20 12:49 Family History (Updated 03/15/22 @ 01:[address] Carlos Manuel Alfonso MD) Other Seizures Surgical History (Updated 03/15/22 @ 01:[address] Carlos Manuel Alfonso MD) History of shoulder surgery Social History housing: other current occupational status: unemployed Smoking Status: Former smoker ROS ROS Narrative Pertinent positives and pertinent negatives as noted in HPI. All other systems were reviewed and are negative Vital Signs Vital Signs Vital Signs: 03/14/22 22:12 03/14/22 23:05 03/15/22 00:19 Temperature 96.4 F L Temperature Source Temporal Pulse Rate 108 H 113 H 109 H Respiratory Rate 22 H 20 H 15 Blood Pressure 149/103 H 118/80 126/103 H Blood Pressure Mean 118 92 110 Pulse Ox 97 92 95 Oxygen Delivery Method Room Air Room Air Room Air Weight Weight: 91.5 kg Body Mass Index (BMI) 28.1 Physical Exam Narrative Physical exam: General: Well-nourished, well-developed. Head: Normocephalic, atraumatic, no tenderness Eyes: Vision is grossly intact. EOMI ENT, no trauma, moist mucous membranes, no rhinorrhea Neck: Nontender, No thyromegaly. CVS: Regular rate and rhythm. S1-S2 present. No murmur, gallop or rub. Respiratory : clear to auscultation bilaterally, chest wall nontender, no wheezing Abdomen: Soft, nontender, nondistended, normal bowel sounds, no masses : Deferred Back: Nontender, no CVA tenderness, no midline spinal tenderness, deformities, step-offs Extremities: Nontender full range of motion, no trauma Skin: Normal color, no trauma, abrasions Neuro: Alert, oriented, cranial nerves II through XII grossly intact. Psychiatry: Normal mood. Normal affect. Not depressed. Not anxious. Results Lab / Micro Data Result Diagrams: 03/14/22 22:15 03/14/22 22:15 Labs: Laboratory Results - last 24 hr 03/14/22 22:15: WBC 9.3, RBC 5.33, Hgb 16.8 H, Hct 52.8, MCV 99.1 H, MCH 31.5, MCHC 31.8 L, RDW Std Deviation 47.2 H, RDW Coeff of Carmine 12.7, Plt Count 218, MPV 11.0, Immature Gran % (Auto) 0.300, Neut % (Auto) 56.3, Lymph % (Auto) 28.3, [place] % (Auto) 13.0 H, Eos % (Auto) 1.2, Baso % (Auto) 0.9, Absolute Neuts (auto) 5.2, Absolute Lymphs (auto) 2.63, Nucleated RBC % 0 03/14/22 22:15: Sodium 143, Potassium 3.1 L, Chloride 105, Carbon Dioxide 14.0 L, Anion Gap 24 H, BUN 13, Creatinine 1.21, Estim Creat Clear Calc 84.70, Est GFR (MDRD) Af Amer 85, Est GFR (MDRD) Non-Af 70, BUN/Creatinine Ratio 10.7, Glucose 129 H, Calcium 9.2, Total Bilirubin 0.70, AST 333 H, ALT 167 H, Alkaline Phosphatase 77, Total Protein 8.6 H, Albumin 4.7, Globulin 3.9, Albumin/Globulin Ratio 1.2 03/14/22 22:55: Ethyl Alcohol 4.0 03/14/22 23:59: Urine Color Yellow, Urine Clarity Clear, Urine pH 7.0, Ur Specific [place] 1.020, Urine Protein 100 H, Urine Glucose (UA) Normal, Urine Ketones 50 H, Urine Occult Blood 50 H, Urine Nitrite Positive H, Urine Bilirubin Negative, Urine Urobilinogen Normal, Ur Leukocyte Esterase 100 H, Urine RBC 0 SEEN, Urine WBC 5-10 SEEN, Ur Squamous Epith Cells 0 SEEN, Urine Bacteria RARE, Urine Mucus 0 SEEN 03/14/22 23:59: Urine Opiates Screen NEGATIVE, Urine Methadone Screen NEGATIVE, Ur Barbiturates Screen NEGATIVE, Ur Phencyclidine Scrn NEGATIVE, Ur Amphetamines Screen NEGATIVE, MDMA (Ecstasy) Screen NEGATIVE, U Benzodiazepines Scrn NEGATIVE, Urine Cocaine Screen NEGATIVE, U Cannabinoids Screen POSITIVE H, Ur Drug Screen Comment Assessment & Plan Assessment/Plan (1) Recurrent seizures: PLAN: Plan Status epilepticus Multiple seizures with each seizure more than 5 minutes. Keppra continued. Patient was evaluated at the ED by telemetry neurologist and recommendation was to load with valproic acid. And then put on scheduled valproic acid. Of note patient with a history of alcoholic hepatitis evaluate for further injury from Depakote. In the setting of multiple seizures Depakote ordered as recommended. Discussed with patient to quit drinking. Patient to follow-up appointment with his neurologist on April 05, 2022. Of note patient is hoping to go on vacation with his girlfriend. He report that his girlfriend will be driving. The time to leave for the vacation is 03/15/2022 at 4 PM. Discussed with patient that there is no guarantee that he may be able to leave the hospital medically. Check EEG. Check prolactin and CPK Alcohol abuse Put on [facility] protocol. Folic acid, multivitamin and thiamine ordered. Counselled. Hypokalemia Potassium of 3.1 Present emergency department. Trend CMP. Alcoholic hepatitis Patient with a history of heavy drinking. AST of 233, ALT of 167. AST over ALT approximately 2. Counseled. Will check PT/INR to see whether patient is a candidate of steroids Per [facility] discriminatory function. Trend CMP Abnormal urinalysis No urinary symptoms. Follow urine culture ordered emergency department. Elevated blood pressure without diagnosis of hypertension Trend blood pressures. PRN Hydralazine ordered. DVT prophylaxis: Subcutaneous Lovenox ordered. Charges/Coding Visit Charges Inpatient E&M: 04620 Init Hosp L3
[2022-03-15 02:52] LABS: CPK Total, Creatine Kinase 197 U/L (39-308); Prolactin 20.1 ng/mL
[2022-03-15 07:09] LABS: Absolute Lymphocyte Count 1.45 X10^3/uL (0.83-4.51); Absolute Neutrophil Count 4.2 X10^3/uL (2.0-7.7); Basophil# 0.05 X10^3/uL; Basophil% 0.7 % (0-1); Eosinophil# 0.03 X10^3/uL; Eosinophils% 0.4 % (0-5); Hematocrit 43.4 % (40-54); Hemoglobin 15.3 g/dL (13.0-16.5); Lymphocyte # 1.45 X10^3/ul (0.83-4.51); Lymphocyte % 21.7 % (19-41); Mean Corp Hgb Conc 35.3 g/dL (32-36); Mean Corpuscular Hgb 32.3 pg (27.0-32.0); Mean Corpuscular Volume 91.8 fL (80-94); Mean Platelet Vol. 10.1 fl (6.2-12.0); Monocyte# 0.93 X10^3/uL; Monocyte% 13.9 % (0-10); NRBC Flagged by Analyzer 0 % (0-5); Neutrophil # 4.19 X10^3/uL (2.7-7.7); Platelet Count 146 K/mm3 (150-450); RBC Distribution Width CV 12.7 % (11.6-14.6); RBC Distribution Width SD 42.8 fl (35.1-43.9); Red Blood Count 4.73 M/mm3 (4.6-6.2); White Blood Count 6.7 K/mm3 (4.4-11.0)
[2022-03-15 07:39] LABS: Magnesium 2.2 mg/dL (1.6-2.6)
[2022-03-15 07:43] LABS: ALB/GLOB Ratio 1.3 RATIO (0.9-2.4); AST(SGOT) 122 U/L (15-37); Alanine Aminotransfer ALT/SGPT 118 U/L (16-61); Albumin, Serum 3.7 g/dL (3.2-5.0); Alkaline Phosphatase 57 U/L (45-117); Anion Gap 5 (5-15); BUN 11 mg/dL (7-18); BUN/Creat Ratio 13.4 RATIO (10-20); Calcium,Total 8.6 mg/dL (8.5-10.1); Chloride 110 mmol/L (98-107); Creatinine, Serum 0.82 mg/dL (0.70-1.30); EST Glomerular Filtration Rate 109 mL/min (>60); Est Glom Filt Rate - Afr Amer 132 mL/min (>60); Estimated Creatinine Clearance 124.99 ml/min; Globulin 2.9 g/dL (2.2-4.2); Glucose 103 mg/dL (74-106); Protein, Total 6.6 g/dL (6.4-8.2); Sodium Level 141 mmol/L (136-145)
[2022-03-15 08:13] LABS: International Normalized Ratio 1.1; Prothrombin Time (Protime)PT. 13.5 SECONDS (11.7-14.9)
[2022-03-15] MEDS: Enoxaparin 40 MG/0.4 ML Syringe SC (09:05)
[2022-03-15] MEDS: Naproxen 500 MG Tablet PO (09:06)
[2022-03-15] MEDS: Multivitamins,Therapeutic Tablet 1 TABLET PO (09:06)
[2022-03-15] MEDS: levETIRAcetam 750 MG Tablet 1500 MG PO (09:06)
[2022-03-15] MEDS: Thiamine Hydrochloride 100 MG Tablet PO (09:06)
[2022-03-15] MEDS: Divalproex Sodium 250 MG Tablet 500 MG PO (09:06)
[2022-03-15] MEDS: Folic Acid 1 MG Tablet PO (09:06)
--- NOTE | 2022-03-15 10:11 | NURSING ---
Pt signed out AMA. Left hospital with all belongings accompanied by significant other.
--- NOTE | 2022-03-15 12:46 | PCM.DC.SUM ---
Providers Date of Admission: 03/15/22 Date of Discharge: 03/15/22 Primary Care Physician: [facility] Reason For Visit: STATUS EPILEPTICUS Diagnosis Discharge Diagnosis (1) Recurrent seizures: Status: Acute Code(s): G40.909 - Epilepsy, unspecified, not intractable, without status epilepticus Medications at Discharge Home Medications divalproex 500 mg tablet,delayed release (Depakote) 500 mg PO BID 30 days #60 tabs 03/15/22 levetiracetam 750 mg tablet (Keppra) 1,500 mg PO BID 30 days #120 tabs 03/15/22 Hospital Course Operations None Procedures None Summary of Care Provided Minutes Spent on Discharge: 25 Hospital Course: 41-year-old with past medical history of epilepsy, follows up with neurologist in the [place], on Keppra 3000 mg daily who comes in after multiple seizures. A couple of seizures were observed in the ED. Seizures were both focal and generalised. Patient admits to daily vodka use and marijuana use. Patient's blood alcohol level was negative. He was loaded with IV valproic acid 20mg/kg x1, then continued with 500mg BID. He was continued on Keppra 1500mg BID. He was monitored on telemetry with no acute events. Patient signed out AMA. His valproic acid and Keppra prescription for 1 month was sent to his pharmacy. Physical Exam Narrative Physical exam: General: Alert, Oriented x3, Cooperative, No apparent distress HEENT: Atraumatic Oral: Moist Mucosa Neck: Supple Lungs: Clear to auscultation Cardiovascular: HS I+II, regular, no murmurs Abdomen: Bowel Sounds Present, Soft, Non Tender Extremities: No edema Skin: No rashes, No breakdown Neurological: Grossly intact Psych/Mental Status: Appropriate Weight / BMI Weight Weight: 85.275 kg Body Mass Index (BMI) 26.2 ABG / Lab / Microbiology Data Result Diagrams: 03/15/22 06:56 03/15/22 06:56 Laboratory: Laboratory Results - last 24 hr 03/14/22 22:15: WBC 9.3, RBC 5.33, Hgb 16.8 H, Hct 52.8, MCV 99.1 H, MCH 31.5, MCHC 31.8 L, RDW Std Deviation 47.2 H, RDW Coeff of Carmine 12.7, Plt Count 218, MPV 11.0, Immature Gran % (Auto) 0.300, Neut % (Auto) 56.3, Lymph % (Auto) 28.3, [place] % (Auto) 13.0 H, Eos % (Auto) 1.2, Baso % (Auto) 0.9, Absolute Neuts (auto) 5.2, Absolute Lymphs (auto) 2.63, Nucleated RBC % 0 03/14/22 22:15: Sodium 143, Potassium 3.1 L, Chloride 105, Carbon Dioxide 14.0 L, Anion Gap 24 H, BUN 13, Creatinine 1.21, Estim Creat Clear Calc 84.70, Est GFR (MDRD) Af Amer 85, Est GFR (MDRD) Non-Af 70, BUN/Creatinine Ratio 10.7, Glucose 129 H, Calcium 9.2, Total Bilirubin 0.70, AST 333 H, ALT 167 H, Alkaline Phosphatase 77, Total Protein 8.6 H, Albumin 4.7, Globulin 3.9, Albumin/Globulin Ratio 1.2 03/14/22 22:47: Total Creatine Kinase 197, Prolactin 20.1 03/14/22 22:55: Ethyl Alcohol 4.0 03/14/22 23:59: Urine Color Yellow, Urine Clarity Clear, Urine pH 7.0, Ur Specific [place] 1.020, Urine Protein 100 H, Urine Glucose (UA) Normal, Urine Ketones 50 H, Urine Occult Blood 50 H, Urine Nitrite Positive H, Urine Bilirubin Negative, Urine Urobilinogen Normal, Ur Leukocyte Esterase 100 H, Urine RBC 0 SEEN, Urine WBC 5-10 SEEN, Ur Squamous Epith Cells 0 SEEN, Urine Bacteria RARE, Urine Mucus 0 SEEN 03/14/22 23:59: Urine Opiates Screen NEGATIVE, Urine Methadone Screen NEGATIVE, Ur Barbiturates Screen NEGATIVE, Ur Phencyclidine Scrn NEGATIVE, Ur Amphetamines Screen NEGATIVE, MDMA (Ecstasy) Screen NEGATIVE, U Benzodiazepines Scrn NEGATIVE, Urine Cocaine Screen NEGATIVE, U Cannabinoids Screen POSITIVE H, Ur Drug Screen Comment 03/15/22 06:56: Magnesium 2.2 03/15/22 06:56: WBC 6.7, RBC 4.73, Hgb 15.3, Hct 43.4, MCV 91.8 D, MCH 32.3 H, MCHC 35.3 D, RDW Std Deviation 42.8, RDW Coeff of Carmine 12.7, Plt Count 146 L, MPV 10.1, Immature Gran % (Auto) 0.300, Neut % (Auto) 63.0, Lymph % (Auto) 21.7, [place] % (Auto) 13.9 H, Eos % (Auto) 0.4, Baso % (Auto) 0.7, Absolute Neuts (auto) 4.2, Absolute Lymphs (auto) 1.45, Nucleated RBC % 0 03/15/22 06:56: Sodium 141, Potassium 4.0, Chloride 110 H, Carbon Dioxide 26.0, Anion Gap 5, BUN 11, Creatinine 0.82, Estim Creat Clear Calc 124.99, Est GFR (MDRD) Af Amer 132, Est GFR (MDRD) Non-Af 109, BUN/Creatinine Ratio 13.4, Glucose 103, Calcium 8.6, Total Bilirubin 1.00, AST 122 H, ALT 118 H, Alkaline Phosphatase 57, Total Protein 6.6, Albumin 3.7, Globulin 2.9, Albumin/Globulin Ratio 1.3 03/15/22 06:56: PT 13.5, INR 1.1 Meaningful Use Info Meaningful Use Diagnoses (Choose all that apply): None applicable Discharge Plan Admission Admit Date/Time: 03/15/22 01:07 Primary Reason for Your Visit: Seizures Attending Provider: Dalia Vásquez Primary Care Provider: [facility],[place] Consulting Providers: Carlos Manuel Alfonso Discharge Orders/Prescriptions Prescriptions: New levetiracetam [Keppra] 750 mg tablet 1,500 mg PO BID 30 Days Qty: 120 0RF divalproex [Depakote] 500 mg tablet,delayed release (DR/EC) 500 mg PO BID 30 Days Qty: 60 0RF Discontinued levetiracetam 500 MG tablet 3,000 mg PO DAILY Rx Instructions: has been out of for a couple of days naproxen 500 MG tablet 500 mg PO BID Referrals / Follow Up: Care Physician,Gladys Primary [Non-Staff] - [facility] [[facility] - Disposition Disposition (needs filled in before D/C Order can be placed): Against Medical Advice Charges/Coding Visit Charges Inpatient E&M: 12166 Disch Hosp
[2022-03-18 20:47] LABS: KEPPRA (LEVETIRACETAM) 20.1 ug/mL (10.0-40.0)
== END 2022-03-15 10:10 | disposition left against medical advice (07) | DRG 101 ==
LOC: ED 03-15 00:56 → PCU 03-15 01:27
PROVIDERS: Admitting Provider Hospitalist; Emergency Provider Emergency Medicine; Visit Provider Internal Medicine
DX: G40.109 Localization-related (focal) (partial) symptomatic epilepsy and epileptic syndromes with simple partial seizures, not intractable, without status epilepticus (principal); E87.6 Hypokalemia; K70.10 Alcoholic hepatitis without ascites; F10.10 Alcohol abuse, uncomplicated; Y90.0 Blood alcohol level of less than 20 mg/100 ml; R03.0 Elevated blood-pressure reading, without diagnosis of hypertension; Z79.899 Other long term (current) drug therapy; Z87.891 Personal history of nicotine dependence
CPT/HCPCS: 36415; 80053; 80177; 80307; 81001; 82077; 82550; 83735; 84146; 85025; 85610; 87086; 99285; A4216

== ENCOUNTER 2022-09-12 10:26 | Inpatient (IN) | payer OTHER, SELFPAY ==
[2022-09-12] VITALS (35 sets, daily range): BP systolic 90–156; BP diastolic 66–96; PULSE 71–143; RESP 14–19; TEMP 35.8–36.9; O2SAT 88–100; BMI 26.8; BMI 25.8
--- NOTE | 2022-09-12 10:45 | EKG12_ITS ---
Test Reason : SEIZURE Blood Pressure : / mmHG Vent. Rate : 120 BPM Atrial Rate : 120 BPM P-R Int : 122 ms QRS Dur : 114 ms QT Int : 356 ms P-R-T Axes : 063 040 058 degrees QTc Int : 503 ms Sinus tachycardia [id number] type A Left anteroseptal Confirmed by NADIR BARRIOS, NAIDA ([id number]), videotape editor ANAMARIA MCINTYRE ([id number]) on 09/14/2022 12:31:27 PM Referred By: ABDIAS Confirmed By:NAIDA SCHMITZ MD
--- NOTE | 2022-09-12 10:45 | CT_ITS ---
INDICATION: Altered level of consciousness and seizure EXAMINATION: CT BRAIN - CT Head or Brain W/O Contrast Injection TECHNIQUE: Multiple axial images were obtained of the head without intravenous contrast. A radiation dose optimization technique was used for this scan. IV Contrast dosage and agent: None. RADIATION DOSAGE (If Supplied By Facility): CTDIvol = ( 44.99 ) mGy, DLP = ( 846.73 ) mGycm COMPARISON: Prior CT scan of the brain of 07/07/2018. FINDINGS: BRAIN PARENCHYMA: No intra- or extra-axial hemorrhage. No evidence of acute infarct. No intracranial mass or mass effect. There is preservation of the barrientos/white matter interface. Posterior fossa structures are unremarkable. CSF SPACES: Appropriate for age. No hydrocephalus. Basal cisterns are patent. CALVARIUM, SKULL BASE, PARANASAL SINUSES AND MASTOID AIR CELLS: Mucosal thickening of the ethmoid sinuses with secretions in the right nasal cavity. No discrete lytic or blastic abnormalities. ORBITS: The globes are grossly intact. ASPECTS Score for Acute Strokes: 10 CT/Brain/Head without Contrast IMPRESSION: 1. No acute intracranial process. 2. Sinus disease. Electronically Signed: Daniel Cox MD at 13:37 EDT ,
--- NOTE | 2022-09-12 10:48 | EX.ED.DYSGE1 ---
HPI History of Present Illness Chief Complaint: Seizure Informant: EMS Narrative Narrative: Patient brought by EMS for having multiple seizures today, approximately 5 prior to EMS arrival, and a 1 to 2-minute grand mal seizure for EMS, they gave him IM midazolam 8 mg. He presents by EMS prone and borderline hypoxic. He lost continence of his bowels. Nurses cleaned him up and suctioned some minor secretions from his mouth and now he is satting 97% on room air still unconscious but breathing. No history from him at that time. Per EMS, he slept in this morning and so has not yet taken his morning doses of seizure medications which are unknown until reviewing the EMR. Girlfriend later arrived and provided information that he has a history of using alcohol heavily but stopped 2 weeks ago, but then he had a drink last night and she is not exactly sure what is recent patterns of been. [facility] Medical History (Updated 09/12/22 @ 13:[address] Luis Daniel Sullivan MD) Recurrent seizures Home Medications divalproex 500 mg tablet,delayed release (Depakote) 500 mg PO BID 30 days #60 tabs 03/15/22 [Rx Last Taken Unknown] levetiracetam 750 mg tablet (Keppra) 1,500 mg (2 x 750 mg) PO BID 30 days #120 tabs 03/15/22 [Rx Last Taken Unknown] Allergy/AdvReac Type Severity Reaction Status Date / Time No Known Allergies Allergy Verified 02/12/20 12:49 Family History Other Seizures Surgical History History of shoulder surgery Social History housing: other current occupational status: unemployed Smoking Status: Unknown if ever smoked ROS ROS ED Review of Systems ROS Unobtainable: due to mental status EXAM Physical Exam Const Vital Signs: 09/12/22 10:27 09/12/22 10:47 09/12/22 10:47 Temperature 96.4 F L Temperature Source Temporal Pulse Rate 133 H Respiratory Rate 18 Respiratory Effort Respiratory Depth Respiratory Pattern Blood Pressure 124/79 H Blood Pressure Mean 94 Blood Pressure Source Blood Pressure Position Blood Pressure Location Pulse Ox 91 88 96 Oxygen Delivery Method Room Air Room Air Nasal Cannula Oxygen Flow Rate (L/min) 2 09/12/22 10:49 09/12/22 11:01 09/12/22 11:43 Temperature Temperature Source Pulse Rate 119 H Respiratory Rate 14 Respiratory Effort Normal Non-Labored Respiratory Depth Normal Respiratory Pattern Normal Blood Pressure 90/66 Blood Pressure Mean 74 Blood Pressure Source Blood Pressure Position Blood Pressure Location Pulse Ox 96 95 95 Oxygen Delivery Method Nasal Cannula Room Air Room Air Oxygen Flow Rate (L/min) 2 09/12/22 11:50 09/12/22 12:02 09/12/22 12:18 Temperature 97.8 F 98.3 F Temperature Source Temporal Core Pulse Rate 143 H 114 H 105 H Respiratory Rate 19 H 16 14 Respiratory Effort Respiratory Depth Respiratory Pattern Blood Pressure 129/96 H Blood Pressure Mean 107 Blood Pressure Source Blood Pressure Position Blood Pressure Location Pulse Ox 93 95 95 Oxygen Delivery Method Mechanical Ventilator Mechanical Ventilator Oxygen Flow Rate (L/min) 09/12/22 12:41 09/12/22 12:50 09/12/22 13:00 Temperature 98.3 F 98.1 F Temperature Source Core Core Pulse Rate 102 H 99 97 Respiratory Rate 16 18 Respiratory Effort Respiratory Depth Respiratory Pattern Blood Pressure 156/85 H 123/91 H Blood Pressure Mean 108 101 Blood Pressure Source Monitor Blood Pressure Position Semi-Fowlers Blood Pressure Location Left Arm Pulse Ox 95 98 Oxygen Delivery Method Mechanical Ventilator Mechanical Ventilator Oxygen Flow Rate (L/min) 09/12/22 13:10 09/12/22 13:20 09/12/22 13:40 Temperature 98.4 F Temperature Source Core Pulse Rate 99 99 98 Respiratory Rate 16 18 14 Respiratory Effort Respiratory Depth Respiratory Pattern Blood Pressure 126/89 H 127/94 H 115/85 H Blood Pressure Mean 101 105 95 Blood Pressure Source Monitor Monitor Monitor Blood Pressure Position Semi-Fowlers Blood Pressure Location Pulse Ox 98 98 100 Oxygen Delivery Method Mechanical Ventilator Mechanical Ventilator Mechanical Ventilator Oxygen Flow Rate (L/min) 09/12/22 13:50 09/12/22 13:54 09/12/22 13:55 Temperature 98.4 F 98.4 F 98.3 F Temperature Source Core Core Core Pulse Rate 98 97 99 Respiratory Rate 16 16 16 Respiratory Effort Respiratory Depth Respiratory Pattern Blood Pressure 115/85 H 114/82 H Blood Pressure Mean 95 92 Blood Pressure Source Monitor Blood Pressure Position Semi-Fowlers Blood Pressure Location Left Arm Pulse Ox 96 96 96 Oxygen Delivery Method Mechanical Ventilator Mechanical Ventilator Mechanical Ventilator Oxygen Flow Rate (L/min) Positive well nourished and well developed General Appearance ED: well developed and NAD HEENT Reports moist mucous membranes normocephalic and atraumatic Eyes PERRL Eyes Narrative: Pinpoint pupils equal Neck full ROM, no lymphadenopathy and supple Neck Narrative: No meningismus Chest Wall inspection of chest normal and palpation of chest normal Resp normal respiratory effort and clear to auscultation bilaterally Resp Narrative: Airway patent no distress Cardio regular rate, regular rhythm and no murmurs Rate: tachycardic GI non-tender and non-distended Auscultation: normoactive bowel sounds Palpation: soft Back/Spine Back/Spine Narrative: Normal inspection Extremity normal to inspection General Extremety ED: Negative for edema, pulses abnormal or tenderness General Extremity: Negative for edema or pulses abnormal Neuro Neuro Narrative: Initially, patient is obtunded. GCS 3. Skin no rashes or lesions noted and no wounds MDM MDM MDM Narrative Medical decision making narrative: Although patient has a significantly low GCS, he is postictal from seizure, under the influence of short acting benzodiazepine, and protecting his airway without hypoxia, 97% on room air, and his vital signs are stable so I chose to closely observe him instead of immediately intubating him. In the meantime, his morning doses of levetiracetam and valproic acid were ordered to be given IV. We did send a valproic acid level that was obtained prior to giving him this medication. An ABG was also obtained at this time, it shows an acute metabolic acidosis consistent with likely lactate as a source, we did send that off as well but it was drawn after he received a good amount of IV fluids. Family arrived I spoke with them, maddy? states that the patient was recently put on an additional seizure medication but they do not know what it is that she went home to get it. Patient's blood pressure started trending down, we were giving him IV fluids and it was responding to that. The patient started to wake up. Myself and nursing were attentive to the patient as this occurred, however he was confused, he was able to talk, wanted us to let him go, he continued to try to get up and was not redirectable. We again tried to verbally and gently physically redirect him, however he started physically hurting the staff with his hands and trying to kick everyone. I ordered Ativan 2 mg, prior to this being given, the patient was so agitated that security and EMS personnel were needed to help physically restrain him to keep him from harming himself and others as we were trying to care for him. The patient escalated and became out of control requiring 7 people just to hold him down and prevent him from hurting himself. At this time after the Ativan was given, we quickly sedated him with etomidate, so that we could get oxygen on him without him spitting and turning his head around, and safely intubate him without all of the people in the room, in order to protect his airway. This was done without difficulty see the procedure note there were no complications. This was all necessary in order to obtain CT imaging of the head as well as chest x-ray to verify ETT placement. 1 view chest x-ray my interpretation shows good ETT placement. Radiology in agreement in addition to the OG tube which is good and placement. Patient CT was reviewed by myself as well as the report which I agree with, negative for any acute. Repeat ABG shows improvement in his bicarb and pH with a PCO2 of 40 and good oxygenation. He is on propofol and fentanyl for sedation, discussed with Dr. Corral who agrees with keeping him here, his valproic acid level came back extremely low, negligible. Therefore I added more to the initial 500 mg that he received already. History & Record Review Discussion w/independent historian: EMS personnel and Significant other Lab Data Attestation: I reviewed the patient's lab results. Labs: Laboratory Results - last 24 hr 09/12/22 09/12/22 09/12/22 08:55 11:00 12:45 WBC 13.3 H RBC 5.56 Hgb 17.2 H Hct 53.8 MCV 96.8 H MCH 30.9 MCHC 32.0 RDW Std Deviation 45.2 H RDW Coeff of Carmine 12.6 Plt Count 230 MPV 11.0 Immature Gran % (Auto) 0.500 Neut % (Auto) 46.4 L Lymph % (Auto) 36.8 Hardin % (Auto) 12.4 H Eos % (Auto) 3.1 Baso % (Auto) 0.8 Absolute Neuts (auto) 6.1 Absolute Lymphs (auto) 4.88 H Nucleated RBC % 0 Differential Comment SCANNED Diff Path Review May foll Sodium 144 Potassium 3.1 L Chloride 110 H Carbon Dioxide 10.0 L Anion Gap 24 H BUN 16 Creatinine 1.61 H Estim Creat Clear Calc 63.66 Est GFR (MDRD) Af Amer 61 Est GFR (MDRD) Non-Af 50 L BUN/Creatinine Ratio 9.9 L Glucose 210 H Lactic Acid 2.2 H* Calcium 9.2 Total Creatine Kinase 142 Triglycerides 561 H Urine Opiates Screen NEGATIVE Urine Methadone Screen NEGATIVE Ur Barbiturates Screen NEGATIVE Valproic Acid 4 L Ur Phencyclidine Scrn NEGATIVE Ur Amphetamines Screen NEGATIVE MDMA (Ecstasy) Screen NEGATIVE U Benzodiazepines Scrn POSITIVE H Urine Cocaine Screen NEGATIVE U Cannabinoids Screen POSITIVE H Ur Drug Screen Comment Ethyl Alcohol < 3.0 ABG Data ABG results: ABG 09/12/22 09/12/22 09/12/22 11:04 11:11 12:54 Specimen Type ERICH Cancelled ART Sample Site Cancelled R Radial pH 7.33 L Bicarbonate Actual 21.0 L Total CO2 22 Base Excess -5 L O2 Saturation 94 L O2 % Cancelled 40 ABG pCO2 40.2 ABG pO2 74 L Hayder Test Positive VBG pH 7.14 L* Cancelled VBG pH (Temp Correct) Cancelled VBG pCO2 (Temp Corrct Cancelled VBG pO2 61 H Cancelled VBG HCO3 13 L Cancelled VBG Total CO2 14 L Cancelled VBG O2 Sat (Calc) 83 H Cancelled VBG Base Excess -16 L Cancelled POC Mix VBG pCO2 Pt Tmp 37.9 L Cancelled Respiration Rate Cancelled 14 O2 Delivery Device Cancelled Adult Vent Liter Flow 2.0 Cancelled Minute Volume Cancelled Vent Mode PRVC Inspiratory Time Cancelled Expiratory Time Cancelled Tidal Volume Cancelled 450 Mean Airway Pressure Cancelled POC PEEP Cancelled 5 Peak Inspir Pressure Cancelled POC Pressure Suppt Cancelled Pressure Control Cancelled EPAP Cancelled IPAP Cancelled Blood Gas Comments Cancelled Crit Call To/Read Back Yes Cancelled Blood Gas Notified Whom Cancelled Blood Gas Notified Time Cancelled Clinical Comments Cancelled Radiography Diagnostic Testing: Clinical Impression(s) from Imaging Studies Brain CT 09/12/22 10:45 IMPRESSION: 1. No acute intracranial process. 2. Sinus disease. Electronically Signed: Daniel Cox MD at 13:37 EDT , Chest X-Ray 09/12/22 11:46 IMPRESSION: 1. Status post intubation and nasogastric tube placement. 2. No active pulmonary disease. Electronically Signed: Daniel Cox MD at 12:33 EDT , Rhythm Strip Rhythm Strip: Sinus Tach Rate: 112 Ectopy: None EKG Initial EKG: Attestation: I personally reviewed and interpreted this EKG as follows: Interpretation: No Acute Injury Pattern, Sinus Tachycardia and Non-Specific ST Changes Comments: Delta wave consistent with WPW syndrome Prior EKG tracings: available for review Prior: Unchanged Management Discussion w/another healthcare provider: Hospitalist and Clinical Data Assistant ([facility]) Procedures Intubations Intubation Method: orotracheal (Pretreatment with etomidate 20 mg, rocuronium 100 mg, followed by endotracheal intubation with a 7.5F ETT, visualized going through the cords using video laryngoscopy, secured at 23 cm at the lip, equal breath sounds bilaterally with good color change. On the monitor and preoxygenated, throughout t) Intubation Verification: Positive color change Intubation Complications: no complications Critical Care Time Critical Care Time: Yes Critical care time (excluding procedures): 30-74 minutes (38 min, not including procedure time), Including time spent:, Discussing w/Patient &/or Family/Waste Water Or Water Plant Operator, Discussing w/Consultants, Arranging Admission or Transfer and Performing Direct Patient Care at Bedside Discharge Plan Dx/Rx/DC Orders Clinical Impression: Encephalopathy acute, Recurrent seizures, Seizure disorder, Agitation, CHEVY (acute kidney injury) Disposition Disposition: Acute Care [facility]
[2022-09-12] MEDS: 0.9% Normal Saline 1,000 ML 999 ML IV ×2 (11:01→12:35)
[2022-09-12 11:07] LABS: Blood Gas Specimen Type VEN; VBG BASE EXCESS -16 mmol/L (-1.0-3.5); VBG Bicarbonate 13 mmol/L (22-26); VBG PO2 61 mmHg (25-40); VBG SO2 83 % (50-70); VBG TCO2 14 mmol/L (23-33); VBG pCO2 37.9 mmHg (41-51); VBG pH 7.14 (7.32-7.42)
--- NOTE | 2022-09-12 11:12 | CPS ---
Critical VBG results given to Dr. Sullivan
[2022-09-12 11:13] LABS: Absolute Lymphocyte Count 4.88 X10^3/uL (0.83-4.51); Absolute Neutrophil Count 6.1 X10^3/uL (2.0-7.7); Basophil# 0.11 X10^3/uL; Basophil% 0.8 % (0-1); Eosinophil# 0.41 X10^3/uL; Eosinophils% 3.1 % (0-5); Hematocrit 53.8 % (40-54); Hemoglobin 17.2 g/dL (13.0-16.5); Lymphocyte # 4.88 X10^3/ul (0.83-4.51); Lymphocyte % 36.8 % (19-41); Mean Corpuscular Hgb 30.9 pg (27.0-32.0); Mean Corpuscular Volume 96.8 fL (80-94); Monocyte# 1.64 X10^3/uL; Monocyte% 12.4 % (0-10); NRBC Flagged by Analyzer 0 % (0-5); Neutrophil # 6.14 X10^3/uL (2.7-7.7); Neutrophil % 46.4 % (47-70); POSITIVE DIFFERENTIAL YES; Platelet Count 230 K/mm3 (150-450); RBC Distribution Width CV 12.6 % (11.6-14.6); RBC Distribution Width SD 45.2 fl (35.1-43.9); Red Blood Count 5.56 M/mm3 (4.6-6.2); White Blood Count 13.3 K/mm3 (4.4-11.0)
--- NOTE | 2022-09-12 11:13 | ED.RN ---
patient started to awakened at 1113, grabbing at IV and monitor wires, and trying to get out of bed. RN assist x3 with Medic to place in soft wrist restraints and moved to closer room.
[2022-09-12 11:20] LABS: Differential Indicated SCAN CRITERIA MET
[2022-09-12 11:23] LABS: Anion Gap 24 (5-15); BUN 16 mg/dL (7-18); BUN/Creat Ratio 9.9 RATIO (10-20); Calcium,Total 9.2 mg/dL (8.5-10.1); Chloride 110 mmol/L (98-107); Creatinine, Serum 1.61 mg/dL (0.70-1.30); EST Glomerular Filtration Rate 50 mL/min (>60); Est Glom Filt Rate - Afr Amer 61 mL/min (>60); Estimated Creatinine Clearance 63.66 ml/min; Glucose 210 mg/dL (74-106); Potassium 3.1 mmol/L (3.5-5.1); Sodium Level 144 mmol/L (136-145)
--- NOTE | 2022-09-12 11:30 | ED.RN ---
Patient awakened- unable to follow any direction. attempting to get out of bed, pulling at tubes. moved to room closer to nurses' station. attempted to assist with urinal. pt grabbing at staff, screaming loudly. x1 dose of Ativan IV ordered by Dr. Sullivan and given with no change. Security, EMS, multiple nurses, PD at bedside to attempt to keep patient and staff safe. Patient a danger to self and others. Dr. Sullivan made decision for intubation- pt moved to room 1. see critical care charting.
[2022-09-12] MEDS: LORazepam 2 MG/ML Syringe IV ×2 (11:35→13:26)
[2022-09-12] MEDS: Etomidate 20 MG/10 ML Vial IV (11:41)
[2022-09-12] MEDS: Rocuronium Bromide 50 MG/5 ML Vial 100 MG IV (11:44)
--- NOTE | 2022-09-12 11:46 | RAD_ITS ---
INDICATION: ETT EXAMINATION/TECHNIQUE: X-RAY - XR Chest 1 View COMPARISON: Previous chest x-ray of 05/19/2017. FINDINGS: LINES/DEVICES: Endotracheal tube with its tip approximately 3.8 cm proximal to the marilee. Nasogastric tube with its tip in the region of the gastric fundus. Telemetry wires overlying the chest. LUNGS: No consolidation, edema or effusion. No pneumothorax. MEDIASTINUM AND CARDIOVASCULAR STRUCTURES: Cardiac silhouette not enlarged. Central airways and mediastinal contour are unremarkable. BONES AND SOFT TISSUES: Unremarkable. RAD/Chest 1 View (Portable) IMPRESSION: 1. Status post intubation and nasogastric tube placement. 2. No active pulmonary disease. Electronically Signed: Dnaiel Cox MD at 12:33 EDT ,
[2022-09-12 11:55] LABS: Alcohol, Blood (Medical)-Serum < 3.0 mg/dL
[2022-09-12] MEDS: Propofol 10MG/Ml 1,000 MG/100 ML Bottle 5.2 MG CONT INF (12:02)
[2022-09-12 12:06] LABS: Differential Comment SCANNED
[2022-09-12] MEDS: fentaNYL drip 100 ML 5 MCG CONT INF (12:06)
[2022-09-12 12:42] LABS: Valproic Acid (Depakene) Level 4 ug/mL (50-100)
[2022-09-12 12:54] LABS: CPK Total, Creatine Kinase 142 U/L (39-308); Triglycerides 561 mg/dL
[2022-09-12 12:58] LABS: Allen Test Positive; Base Excess -5 mmol/L (-2 to +2); Blood Gas Specimen Type ART; FI02 40; Mode PRVC; O2 Delivery Device Adult Vent; PEEP 5; PO2 74 mmHG (75-100); RR 14; SITE R Radial; SO2 94 % (95-99); Total Carbon Dioxide 22 mmol/L; Vt 450; pCO2 40.2 mmHg (35-45); pH 7.33 (7.35-7.45)
[2022-09-12 13:17] LABS: Amphetamine Urine VISTA NEGATIVE (<1000 ng/mL); Barbiturate Urine VISTA NEGATIVE (< 200 ng/mL); Benzodiazepine Urine VISTA POSITIVE (< 200 ng/mL); Cocaine Urine VISTA NEGATIVE (< 300 ng/mL); Ecstacy Urine VISTA NEGATIVE (< 500 ng/mL); Methadone Urine VISTA NEGATIVE (< 300 ng/mL); PCP Urine VISTA NEGATIVE (< 25 ng/mL); THC Urine VISTA POSITIVE (< 50 ng/mL); Vista UDS pH Range 5
[2022-09-12 13:24] LABS: Lactic Acid 2.2 mmol/L (0.4-1.9)
--- NOTE | 2022-09-12 14:00 | NURSING ---
DR SIERRA FOR DR CALERO
--- NOTE | 2022-09-12 14:20 | NURSING ---
ICU 1 TERELETSKY RECURRENT SEIZURES, ENCEPHALOPATHY
[2022-09-12] MEDS: fentaNYL 100 MCG/2 ML Ampul 50 MCG IV (14:22)
--- NOTE | 2022-09-12 14:45 | NURSING ---
New bottle of propofol was hung at this time.
--- NOTE | 2022-09-12 14:45 | NURSING ---
CALLED [facility], GAVE INFO TO ALISHA HO.
--- NOTE | 2022-09-12 15:05 | NURSING ---
Spoke w/ Namrata ford,who was hesitant/ guarded to discuss patient's alcohol use to this RN. Educated on the importance of knowing accurate alcohol consumption. Namrata then stated pt drank at least 1/2 gallon of vodka last night and approximately 1/4 gallon per day over the last week or two. She feels he is hiding his alcohol intake from her. When asked if patient uses any form of drugs, she stated that he uses medical marijuana, no other drugs or nicotine use that she knows of.
[2022-09-12] MEDS: Phenobarbital 32.4 MG Tablet GT ×3 (15:19→23:15)
[2022-09-12] MEDS: 0.9% Saline Lock 10 ML Syringe IV ×4 (15:19→22:58)
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
[2022-09-12 16:51] LABS: Reflex Lactate? Y
--- NOTE | 2022-09-12 17:13 | NURSING ---
New bag of Fentanyl hung at 1713, showing as infused, verified w/ D.JUAN JOSE Sherman, quantros completed.
[2022-09-12] MEDS: KCL 20MEQ in 0.9% NS 20 MEQ/1,000 ML IV.SOLN. 150 MEQ IV (17:14)
[2022-09-12] MEDS: Potassium Chloride Oral Soln 20 MEQ/15 ML UDC 40 MEQ NG (17:15)
--- NOTE | 2022-09-12 17:49 | NURSING ---
Propofol on APR was marked as infused at 1700, however, bottle from 1445 not fully infused and still running at 50mcg/kg/min.
[2022-09-12] MEDS: TITRATION PARAMETER CHANGE 1 EACH IV ×3 (17:51→19:32)
[2022-09-12 17:58] LABS: Lactic Acid 1.6 mmol/L (0.4-1.9)
[2022-09-12] MEDS: Propofol 10MG/Ml 1,000 MG/100 ML Bottle 26.2 MG CONT INF (17:59)
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
[2022-09-12] MEDS: fentaNYL drip 100 ML 20 MCG CONT INF ×2 (18:49→21:39)
--- NOTE | 2022-09-12 19:14 | NURSING ---
Fentanyl on APR shows infused, however bag newly hung at 1713 by Familia Acharya RN still running at 200 mcg/hr with CPOT 0/2
--- NOTE | 2022-09-12 20:04 | NURSING ---
Addendum entered by Lilian Moralez 09/12/22 21:12: 2100: CPOT 0/2 Original Note: Unable to chart fentanyl titrations on 1999: CPOT 0 at rest and 2 with painful stimuli.
[2022-09-12] MEDS: Chlorhexidine 15 ML PO (20:59)
[2022-09-12] MEDS: levETIRAcetam IV 1,000 MG/100 ML BAG 400 MG IV (21:00)
[2022-09-12] MEDS: Heparin Injection (Vial) 5,000 UNIT/ML VIAL 5000 UNIT SC (21:00)
--- NOTE | 2022-09-12 21:40 | NURSING ---
New fentanyl gtt order placed to see if the new order would allow titrations on the MAR since the previous order was not allowing it to be titrated. Pharmacist aware of new order being placed.
[2022-09-12] MEDS: Propofol 10MG/Ml 1,000 MG/100 ML Bottle 25.1 MG CONT INF (21:53)
--- NOTE | 2022-09-12 23:06 | NURSING ---
Addendum entered by Lilian Moralez 09/12/22 23:22: Within 10 minutes, pt woke up and was attempting to sit up and thrash around in the bed; did follow a few simple commands despite his agitation. Propofol restarted d/t attempting to move ETT tube around in his mouth and violently shaking his head back and forth. Original Note: 2300: Pt not withdrawing to painful stimuli, propofol paused at this time.
[2022-09-13] VITALS (34 sets, daily range): BP systolic 95–123; BP diastolic 64–84; PULSE 61–97; RESP 14–32; TEMP 36.7–38.1; O2SAT 78–98; BMI 26.6
[2022-09-13] MEDS: KCL 20MEQ in 0.9% NS 20 MEQ/1,000 ML IV.SOLN. 150 MEQ IV (00:08)
[2022-09-13] MEDS: CHLORHEXIDINE GLUC 2% CLOTH 1 EACH TOWELETTE TOPICAL (00:09)
[2022-09-13] MEDS: Propofol 10MG/Ml 1,000 MG/100 ML Bottle 25.1 MG CONT INF (02:29)
[2022-09-13] MEDS: Phenobarbital 32.4 MG Tablet GT ×6 (03:30→23:07)
[2022-09-13] MEDS: 0.9% Saline Lock 10 ML Syringe IV ×2 (03:31→23:34)
[2022-09-13 03:44] LABS: Absolute Lymphocyte Count 1.32 X10^3/uL (0.83-4.51); Absolute Neutrophil Count 5.1 X10^3/uL (2.0-7.7); Basophil# 0.03 X10^3/uL; Basophil% 0.4 % (0-1); Eosinophil# 0.02 X10^3/uL; Eosinophils% 0.3 % (0-5); Hematocrit 39.9 % (40-54); Hemoglobin 13.5 g/dL (13.0-16.5); Lymphocyte # 1.32 X10^3/ul (0.83-4.51); Lymphocyte % 18.9 % (19-41); Mean Corp Hgb Conc 33.8 g/dL (32-36); Mean Corpuscular Hgb 30.6 pg (27.0-32.0); Mean Corpuscular Volume 90.5 fL (80-94); Mean Platelet Vol. 10.9 fl (6.2-12.0); Monocyte# 0.55 X10^3/uL; Monocyte% 7.9 % (0-10); NRBC Flagged by Analyzer 0 % (0-5); Neutrophil # 5.05 X10^3/uL (2.7-7.7); Neutrophil % 72.2 % (47-70); Platelet Count 125 K/mm3 (150-450); RBC Distribution Width CV 12.9 % (11.6-14.6); RBC Distribution Width SD 42.1 fl (35.1-43.9); Red Blood Count 4.41 M/mm3 (4.6-6.2)
[2022-09-13 04:08] LABS: ALB/GLOB Ratio 1.1 RATIO (0.9-2.4); AST(SGOT) 24 U/L (15-37); Alanine Aminotransfer ALT/SGPT 24 U/L (16-61); Albumin, Serum 2.8 g/dL (3.2-5.0); Alkaline Phosphatase 54 U/L (45-117); Anion Gap 3 (5-15); BUN 9 mg/dL (7-18); BUN/Creat Ratio 10.9 RATIO (10-20); Calcium,Total 7.3 mg/dL (8.5-10.1); Chloride 116 mmol/L (98-107); Creatinine, Serum 0.83 mg/dL (0.70-1.30); EST Glomerular Filtration Rate 108 mL/min (>60); Est Glom Filt Rate - Afr Amer 131 mL/min (>60); Estimated Creatinine Clearance 119.71 ml/min; Globulin 2.6 g/dL (2.2-4.2); Glucose 90 mg/dL (74-106); Potassium 3.9 mmol/L (3.5-5.1); Protein, Total 5.4 g/dL (6.4-8.2); Sodium Level 143 mmol/L (136-145)
[2022-09-13] MEDS: fentaNYL drip 100 ML 15 MCG CONT INF ×2 (04:35→12:02)
[2022-09-13] MEDS: TITRATION PARAMETER CHANGE 1 EACH IV (06:17)
[2022-09-13] MEDS: Propofol 10MG/Ml 1,000 MG/100 ML Bottle 26 MG CONT INF (06:18)
--- NOTE | 2022-09-13 06:20 | RAD_ITS ---
INDICATION: tube placement verification EXAMINATION/TECHNIQUE: X-RAY - XR Chest 1 View COMPARISON: 05/13/2022 FINDINGS: LINES/DEVICES: Endotracheal tube with its tip approximately 3.8 cm proximal to the marilee. Nasogastric tube with its tip in the region of the gastric fundus. Telemetry wires overlying the chest. LUNGS: Subsegmental atelectasis in the left lung base. No consolidation, edema or effusion. No pneumothorax. MEDIASTINUM AND CARDIOVASCULAR STRUCTURES: Cardiac silhouette not enlarged. Central airways and mediastinal contour are unremarkable. BONES AND SOFT TISSUES: Unremarkable. RAD/Chest 1 View (Portable) IMPRESSION: 1. Status post intubation and nasogastric tube placement. 2. No active pulmonary disease. Electronically Signed: Sharon Zuleta MD at 6:38 EDT ,
--- NOTE | 2022-09-13 07:07 | CPS ---
per dr king pushed tube in one cm to 25cm at the lips
[2022-09-13] MEDS: Thiamine Hydrochloride 100 MG Tablet GT (07:40)
[2022-09-13] MEDS: Folic Acid 1 MG Tablet GT (07:40)
--- NOTE | 2022-09-13 07:46 | CON.PCM.CC_ITS ---
Assessment & Plan Assessment/Plan (1) Delirium tremens: (2) CHEVY (acute kidney injury): (3) Seizure disorder: (4) Alcohol abuse: PLAN: Plan RECOMMENDATIONS: 1. Increase sedation goal for the next 24 hours 2. Continue antiepileptics 3. Discontinue maintenance fluids. Add tube feeds 4. Monitor for refeeding syndrome 5. Advance endotracheal tube 1 cm 6. Spontaneous breathing and awakening trials per protocol IMPRESSIONS: 1. Acute respiratory failure secondary to metabolic encephalopathy secondary to delirium tremens Patient receiving significant sedation at this time to allow for vent synchrony. Unclear if patient is suffering from epilepsy to noncompliance versus alcohol withdrawal. Patient's alcohol level was 0 and he was noted to have multiple seizures on presentation with reported drinking recently. We will keep patient more sedated over the next 24 to 48 hours and then attempt spontaneous breathing and awakening trials. Chest x-ray this morning shows ET tube is slightly high. This will be advanced 1 cm. Okay to transition to tube feeds for maintenance fluids. May need to discontinue propofol if triglycerides remain elevated. 2. Status epilepticus Patient does have a history of seizure disorder and Depakote level is suggestive of multiple missed doses. No further seizure activity has been noted, but patient is on significant benzodiazepines and has received this antiepileptics. We will continue to monitor closely. Clinical suspicion for resolution given lack of tonic-clonic activity noted by EMS. 3. Acute kidney injury Clinical suspicion for prerenal etiology. Patient did have significant improvement with volume resuscitation. No indication for renal replacement therapy at this time. 4. Alcohol abuse/tobacco abuse/WPW/history of alcoholic hepatitis/poor history Complicates care, management, recovery and prognosis. We will need to watch for refeeding syndrome. Patient did have a significant drop in white blood cell and hemoglobin, likely secondary to hydration. No suspicion of acute hepatitis at this time. Clinical suspicion for drop in white blood cells and hemoglobin secondary to volume resuscitation. No signs or symptoms of active GI bleed at this time. TIME: 32 minutes critical care time spent addressing patient's acute respiratory failure, DTs, seizures, acute kidney injury, review of all data and collaboration with care team HPI Consult Data Date of Consult: 09/13/22 HPI Narrative Reason for Consultation: Respiratory failure HPI Narrative: CY RAHMAN is a 41 M, with past medical history listed below, who presents to [facility] on 09/12[facility]22 secondary to status epilepticus. Patient reportedly had five 1 to 2-minute grand mal seizures after EMS was called. Patient had received a total of 8 mg of Versed. Patient reportedly had not taken his seizure medications in the morning. Patient does have a history of excessive alcohol use in the past. Patient is reportedly on Keppra and Depakote at baseline. In the ER, patient was tachycardic and saturating 91% on room air. Other vital signs were within normal limits. Initial ABG showed significant acidosis. Patient was given antiepileptics. Over the course of the ER visit, patient became more agitated requiring additional medications and was ultimately intub ated to protect his airway. Laboratory data showed a white blood cell count of 13.3, hemoglobin of 17.2 and platelets of 230. Chemistry showed a potassium of 3.1, creatinine of 1.6 and a lactate of 2.2. Patient did test positive for THC and benzos on tox screen, but alcohol level was negative. Arterial blood gas and VBG were reviewed and were more consistent with a metabolic acidosis. CT of the head was negative and chest x-ray showed appropriate tube placement. EKG showed only sinus tachycardia. Given patient's need for mechanical ventilation, patient was admitted to the intensive care unit for further evaluation. ICU staff is reporting family has stated the patient can drink excessive amounts of vodka with up to a gallon reported at times. Additional history is very limited at this time. It is unclear, but patient reportedly has been drinking recently. Patient became very agitated overnight requiring increased sedation including propofol, Precedex, phenobarbital and as needed Ativan. Patient has not had any hypotension and no seizures have been reported. [facility] Medical History Recurrent seizures Home Medications divalproex 500 mg tablet,delayed release (Depakote) 500 mg PO BID 30 days #60 tabs 03/15/22 [Rx Last Taken Unknown] levetiracetam 750 mg tablet (Keppra) 1,500 mg (2 x 750 mg) PO BID 30 days #120 tabs 03/15/22 [Rx Last Taken Unknown] Allergy/AdvReac Type Severity Reaction Status Date / Time No Known Allergies Allergy Verified 02/12/20 12:49 Family History Other Seizures Surgical History History of shoulder surgery Social History housing: other current occupational status: unemployed Smoking Status: Unknown if ever smoked ROS Review of Systems ROS Unobtainable: due to endotracheal tube and due to mental status Physical Exam Const average body habitus Constitutional Narrative: Patient is sedated and on the ventilator. Good vent synchrony. Appears older than stated age. HEENT normocephalic, head/scalp atraumatic and moist oral mucous membranes Eyes PERRL and conjunctivae normal Neck no JVD and no carotid bruits Resp normal respiratory effort, no retractions, no use of accessory muscles and clear to auscultation bilaterally Cardio regular rate, regular rhythm, S1 normal heart sound, S2 normal heart sound, no murmurs and no rub GI normal to inspection, nondistended, normoactive bowel sounds, soft to palpation and non-distended Extremity no clubbing, cyanosis or edema Neuro Sensorium / Orientation: sedated on vent RASS: -2 Psych Mood & Affect: flat affect Medical Records Data Attestation: I reviewed the patient's medical records Lab / Micro Data Attestation: I reviewed the patient's lab results. 09/13/22 03:33 09/13/22 03:33 Labs: Laboratory Results - last 24 hr 09/12/22 08:55: Total Creatine Kinase 142, Triglycerides 561 H 09/12/22 11:00: WBC 13.3 H, RBC 5.56, Hgb 17.2 H, Hct 53.8, MCV 96.8 H, MCH 30.9, MCHC 32.0, RDW Std Deviation 45.2 H, RDW Coeff of Carmine 12.6, Plt Count 230, MPV 11.0, Immature Gran % (Auto) 0.500, Neut % (Auto) 46.4 L, Lymph % (Auto) 36.8, [place] % (Auto) 12.4 H, Eos % (Auto) 3.1, Baso % (Auto) 0.8, Absolute Neuts (auto) 6.1, Absolute Lymphs (auto) 4.88 H, Nucleated RBC % 0, Differential Comment SCANNED, Diff Path Review May foll, Sodium 144, Potassium 3.1 L, Chloride 110 H, Carbon Dioxide 10.0 L, Anion Gap 24 H, BUN 16, Creatinine 1.61 H , Estim Creat Clear Calc 63.66, Est GFR (MDRD) Af Amer 61, Est GFR (MDRD) Non-Af 50 L, BUN/Creatinine Ratio 9.9 L, Glucose 210 H, Calcium 9.2, Valproic Acid 4 L, Ethyl Alcohol < 3.0 09/12/22 12:45: Lactic Acid 2.2 H*, Urine Opiates Screen NEGATIVE, Urine Methadone Screen NEGATIVE, Ur Barbiturates Screen NEGATIVE, Ur Phencyclidine Scrn NEGATIVE, Ur Amphetamines Screen NEGATIVE, MDMA (Ecstasy) Screen NEGATIVE, U Benzodiazepines Scrn POSITIVE H, Urine Cocaine Screen NEGATIVE, U Cannabinoids Screen POSITIVE H, Ur Drug Screen Comment 09/12/22 17:15: Lactic Acid 1.6 09/13/22 03:33: WBC 7.0, RBC 4.41 L, Hgb 13.5, Hct 39.9 L, MCV 90.5 D, MCH 30.6, MCHC 33.8 D, RDW Std Deviation 42.1, RDW Coeff of Carmine 12.9, Plt Count 125 L, MPV 10.9, Immature Gran % (Auto) 0.300, Neut % (Auto) 72.2 H, Lymph % (Auto) 18.9 L, [place] % (Auto) 7.9, Eos % (Auto) 0.3, Baso % (Auto) 0.4, Absolute Neuts (auto) 5.1, Absolute Lymphs (auto) 1.32, Nucleated RBC % 0, Sodium 143, Potassium 3.9, Chloride 116 H, Carbon Dioxide 24.0, Anion Gap 3 L, BUN 9, Creatinine 0.83, Estim Creat Clear Calc 119.71, Est GFR (MDRD) Af Amer 131, Est GFR (MDRD) Non-Af 108, BUN/Creatinine Ratio 10.9, Glucose 90, Calcium 7.3 L, Total Bilirubin 0.50, AST 24, ALT 24, Alkaline Phosphatase 54, Total Protein 5.4 L, Albumin 2.8 L, Globulin 2.6, Albumin/Globulin Ratio 1.1 ABG Data ABG results: ABG 09/12/22 09/12/22 09/12/22 11:04 11:11 12:54 Specimen Type ERICH Cancelled ART Sample Site Cancelled R Radial pH 7.33 L Bicarbonate Actual 21.0 L Total CO2 22 Base Excess -5 L O2 Saturation 94 L O2 % Cancelled 40 ABG pCO2 40.2 ABG pO2 74 L Hayder Test Positive VBG pH 7.14 L* Cancelled VBG pH (Temp Correct) Cancelled VBG pCO2 (Temp Corrct Cancelled VBG pO2 61 H Cancelled VBG HCO3 13 L Cancelled VBG Total CO2 14 L Cancelled VBG O2 Sat (Calc) 83 H Cancelled VBG Base Excess -16 L Cancelled POC Mix VBG pCO2 Pt Tmp 37.9 L Cancelled Respiration Rate Cancelled 14 O2 Delivery Device Cancelled Adult Vent Liter Flow 2.0 Cancelled Minute Volume Cancelled Vent Mode PRVC Inspiratory Time Cancelled Expiratory Time Cancelled Tidal Volume Cancelled 450 Mean Airway Pressure Cancelled POC PEEP Cancelled 5 Peak Inspir Pressure Cancelled POC Pressure Suppt Cancelled Pressure Control Cancelled EPAP Cancelled IPAP Cancelled Blood Gas Comments Cancelled Crit Call To/Read Back Yes Cancelled Blood Gas Notified Whom Cancelled Blood Gas Notified Time Cancelled Clinical Comments Cancelled Attestation: I personally reviewed and interpreted this ABG as follows: (See HPI) Rhythm Strip Rhythm Strip: Sinus Tach Rate: 112 Ectopy: None Radiology Impression Brain CT 09/12/22 10:45 IMPRESSION: 1. No acute intracranial process. 2. Sinus disease. Electronically Signed: Daniel Cox MD at 13:37 EDT , Chest X-Ray 09/12/22 11:46 IMPRESSION: 1. Status post intubation and nasogastric tube placement. 2. No active pulmonary disease. Electronically Signed: Daniel Cox MD at 12:33 EDT , Chest X-Ray 09/13/22 06:20 IMPRESSION: 1. Status post intubation and nasogastric tube placement. 2. No active pulmonary disease. Electronically Signed: Sharon Zuleta MD at 6:38 EDT , Charges/Coding Procedures Hospitalists Procedures: [id number] [facility] Care 1st Hr
--- NOTE | 2022-09-13 08:19 | PN.HOSP_ITS ---
Reason for Visit Reason for Visit: Diagnoses Alcohol abuse, uncomplicated (09/12/22) Alcohol use, unspecified with withdrawal delirium (09/12/22) Epilepsy, unspecified, not intractable, without status epilepticus (09/12/22) Acute kidney failure, unspecified (09/12/22) Subjective Subjective Patient was seen and examined today, he remains sedated on the ventilator. I talked briefly with critical care about his medical care. It is probable the patient is going through DTs. Objective Data Objective Data Vital Signs: Vital Signs Temp Pulse Resp BP Pulse Ox O2 Del Method O2 Flow Rate 99.5 F H 77 14 95/64 94 Mechanical Ventilator 2 09/13/22 07:00 09/13/22 07:07 09/13/22 07:07 09/13/22 07:00 09/13/22 07:07 09/13/22 07:00 09/12/22 10:49 FiO2 25 09/13/22 07:00 Oxygen Flow Rate (L/min) 2 Oxygen Delivery Method Mechanical Ventilator Weight: 86.5 kg Body Mass Index (BMI) 26.6 Intake & Output: Intake and Output for Last 24 Hours 09/11/22 09/12/22 09/13/22 23:59 23:59 23:59 Intake Total 2995.44 / 3002.35 2469.84 / 2469.84 Output Total 1600 / 1600 550 / 550 Balance 1395.44 / 1402.35 1919.84 / 1919.84 Lab / Micro Data 09/13/22 03:33 09/13/22 03:33 Labs: Laboratory Results - last 24 hr 09/12/22 08:55: Total Creatine Kinase 142, Triglycerides 561 H 09/12/22 11:00: WBC 13.3 H, RBC 5.56, Hgb 17.2 H, Hct 53.8, MCV 96.8 H, MCH 30.9, MCHC 32.0, RDW Std Deviation 45.2 H, RDW Coeff of Carmine 12.6, Plt Count 230, MPV 11.0, Immature Gran % (Auto) 0.500, Neut % (Auto) 46.4 L, Lymph % (Auto) 36.8, [place] % (Auto) 12.4 H, Eos % (Auto) 3.1, Baso % (Auto) 0.8, Absolute Neuts (auto) 6.1, Absolute Lymphs (auto) 4.88 H, Nucleated RBC % 0, Differential Comment SCANNED, Diff Path Review June, Sodium 144, Potassium 3.1 L, Chloride 110 H, Carbon Dioxide 10.0 L, Anion Gap 24 H, BUN 16, Creatinine 1.61 H , Estim Creat Clear Calc 63.66, Est GFR (MDRD) Af Amer 61, Est GFR (MDRD) Non-Af 50 L, BUN/Creatinine Ratio 9.9 L, Glucose 210 H, Calcium 9.2, Valproic Acid 4 L, Ethyl Alcohol < 3.0 09/12/22 12:45: Lactic Acid 2.2 H*, Urine Opiates Screen NEGATIVE, Urine Methadone Screen NEGATIVE, Ur Barbiturates Screen NEGATIVE, Ur Phencyclidine Scrn NEGATIVE, Ur Amphetamines Screen NEGATIVE, MDMA (Ecstasy) Screen NEGATIVE, U Benzodiazepines Scrn POSITIVE H, Urine Cocaine Screen NEGATIVE, U Cannabinoids Screen POSITIVE H, Ur Drug Screen Comment 09/12/22 17:15: Lactic Acid 1.6 09/13/22 03:33: WBC 7.0, RBC 4.41 L, Hgb 13.5, Hct 39.9 L, MCV 90.5 D, MCH 30.6, MCHC 33.8 D, RDW Std Deviation 42.1, RDW Coeff of Carmine 12.9, Plt Count 125 L, MPV 10.9, Immature Gran % (Auto) 0.300, Neut % (Auto) 72.2 H, Lymph % (Auto) 18.9 L, [place] % (Auto) 7.9, Eos % (Auto) 0.3, Baso % (Auto) 0.4, Absolute Neuts (auto) 5.1, Absolute Lymphs (auto) 1.32, Nucleated RBC % 0, Sodium 143, Potassium 3.9, Chloride 116 H, Carbon Dioxide 24.0, Anion Gap 3 L, BUN 9, Creatinine 0.83, Estim Creat Clear Calc 119.71, Est GFR (MDRD) Af Amer 131, Est GFR (MDRD) Non-Af 108, BUN/Creatinine Ratio 10.9, Glucose 90, Calcium 7.3 L, Total Bilirubin 0.50, AST 24, ALT 24, Alkaline Phosphatase 54, Total Protein 5.4 L, Albumin 2.8 L, Globulin 2.6, Albumin/Globulin Ratio 1.1 ABG Data ABG results: ABG 09/12/22 09/12/22 09/12/22 11:04 11:11 12:54 Specimen Type ERICH Cancelled ART Sample Site Cancelled R Radial pH 7.33 L Bicarbonate Actual 21.0 L Total CO2 22 Base Excess -5 L O2 Saturation 94 L O2 % Cancelled 40 ABG pCO2 40.2 ABG pO2 74 L Hayder Test Positive VBG pH 7.14 L* Cancelled VBG pH (Temp Correct) Cancelled VBG pCO2 (Temp Corrct Cancelled VBG pO2 61 H Cancelled VBG HCO3 13 L Cancelled VBG Total CO2 14 L Cancelled VBG O2 Sat (Calc) 83 H Cancelled VBG Base Excess -16 L Cancelled POC Mix VBG pCO2 Pt Tmp 37.9 L Cancelled Respiration Rate Cancelled 14 O2 Delivery Device Cancelled Adult Vent Liter Flow 2.0 Cancelled Minute Volume Cancelled Vent Mode PRVC Inspiratory Time Cancelled Expiratory Time Cancelled Tidal Volume Cancelled 450 Mean Airway Pressure Cancelled POC PEEP Cancelled 5 Peak Inspir Pressure Cancelled POC Pressure Suppt Cancelled Pressure Control Cancelled EPAP Cancelled IPAP Cancelled Blood Gas Comments Cancelled Crit Call To/Read Back Yes Cancelled Blood Gas Notified Whom Cancelled Blood Gas Notified Time Cancelled Clinical Comments Cancelled Radiography Diagnostic Testing: Radiology Impression Brain CT 09/12/22 10:45 IMPRESSION: 1. No acute intracranial process. 2. Sinus disease. Electronically Signed: Daniel Cox MD at 13:37 EDT Reading Location ID and State: [address] [place] [address] Tel , Service support , Chest X-Ray 09/12/22 11:46 IMPRESSION: 1. Status post intubation and nasogastric tube placement. 2. No active pulmonary disease. Electronically Signed: Daniel Cox MD at 12:33 EDT , Chest X-Ray 09/13/22 06:20 IMPRESSION: 1. Status post intubation and nasogastric tube placement. 2. No active pulmonary disease. Electronically Signed: Sharon Zuleta MD at 6:38 EDT , Rhythm Strip Rhythm Strip: Sinus Tach Rate: 112 Ectopy: None Physical Exam Narrative average body habitus Constitutional Narrative: Patient is sedated and on the ventilator HEENT normocephalic and head/scalp atraumatic Eyes PERRL and conjunctivae normal Neck no JVD and no carotid bruits Resp normal respiratory effort, no retractions, no use of accessory muscles and clear to auscultation bilaterally Cardio regular rate, regular rhythm, S1 normal heart sound, S2 normal heart sound, no murmurs and no rub GI normal to inspection, nondistended, normoactive bowel sounds, soft to palpation and non-distended Extremity no clubbing, cyanosis or edema Neuro Neuro Narrative: Patient is sedated and on the ventilator Psych Psych Narrative: Patient is sedated and on the ventilator Assessment & Plan Assessment/Plan (1) Delirium tremens: (2) Recurrent seizures: PLAN: Plan 1. Recurrent seizures-patient remains on Keppra and valproic acid at this time, he is also on propofol currently for sedation on the ventilator #2 acute alcohol withdrawal with DTs-continue present medications including phenobarbital #3 hypokalemia-corrected at this time #4 Acute kidney injury-creatinine today was 0.83 Total clinical time spent by myself addressing patient's medical issues, reviewing all of his data, and collaborating with patient's care team: 35 minutes Charges/Coding Visit Charges Inpatient E&M: 83903 Subs Hosp L2
[2022-09-13] MEDS: levETIRAcetam IV 1,000 MG/100 ML BAG 400 MG IV ×2 (09:36→22:00)
[2022-09-13] MEDS: Famotidine 20 MG Tablet PO ×2 (09:37→23:03)
[2022-09-13] MEDS: Heparin Injection (Vial) 5,000 UNIT/ML VIAL 5000 UNIT SC ×2 (09:37→22:54)
[2022-09-13] MEDS: Chlorhexidine 15 ML PO ×2 (09:37→21:10)
[2022-09-13] MEDS: Propofol 10MG/Ml 1,000 MG/100 ML Bottle 10.4 MG CONT INF ×2 (11:17→18:49)
[2022-09-13] MEDS: Vital AF 1.2 Cal Liquid 1,000 ML 30 ML GT (11:32)
[2022-09-13] MEDS: fentaNYL drip 100 ML 12.5 MCG CONT INF (19:51)
--- NOTE | 2022-09-13 23:15 | RAD_ITS ---
EXAM: XR CHEST, 1 VIEW CLINICAL INDICATION: ETT placement TECHNIQUE: Frontal view of the chest. COMPARISON: Portable chest 09/13/2022 FINDINGS: LUNGS AND PLEURAL SPACES: Left basilar airspace disease and small pleural effusion. No pneumothorax. HEART: Unremarkable. Cardiac silhouette not enlarged. MEDIASTINUM: Central airways and mediastinal contour are unremarkable. BONES/JOINTS: Unremarkable. SOFT TISSUES: Unremarkable. TUBES, LINES AND DEVICES: Endotracheal tube with tip 4.9 cm above the marilee. Enteric tube extending below the level of the GE junction into the stomach. RAD/Chest 1 View (Portable) IMPRESSION: 1. Left basilar airspace disease and small pleural effusion. Findings may indicate pneumonia. 2. Endotracheal tube with tip 4.9 cm above the marilee. Electronically Signed: Lobo Kay MD at 0:06 EDT ,
--- NOTE | 2022-09-13 23:15 | NURSING ---
ETT noted to be withdrawn after pt thrashing in bed; CXR confirms ETT 4.9cm above marilee; ETT repositioned per telephone order from to 25cm at the lip and resecured w/RT Soledad Sanz.
[2022-09-13] MEDS: Propofol 10MG/Ml 1,000 MG/100 ML Bottle 13 MG CONT INF (23:21)
[2022-09-14] VITALS (32 sets, daily range): BP systolic 120–144; BP diastolic 82–100; PULSE 75–89; RESP 16–29; TEMP 37.7–39; O2SAT 88–955; BMI 27.0
[2022-09-14] MEDS: CHLORHEXIDINE GLUC 2% CLOTH 1 EACH TOWELETTE TOPICAL (00:30)
[2022-09-14] MEDS: fentaNYL drip 100 ML 12.5 MCG CONT INF ×2 (03:40→12:38)
[2022-09-14] MEDS: TITRATION PARAMETER CHANGE 1 EACH IV (03:55)
[2022-09-14] MEDS: Phenobarbital 32.4 MG Tablet GT ×5 (04:29→18:46)
[2022-09-14] MEDS: Propofol 10MG/Ml 1,000 MG/100 ML Bottle 15.8 MG CONT INF ×3 (04:29→20:34)
[2022-09-14] MEDS: 0.9% Saline Lock 10 ML Syringe IV (04:47)
[2022-09-14 05:04] LABS: Absolute Lymphocyte Count 0.84 X10^3/uL (0.83-4.51); Absolute Neutrophil Count 6.3 X10^3/uL (2.0-7.7); Basophil# 0.02 X10^3/uL; Basophil% 0.3 % (0-1); Eosinophil# 0.09 X10^3/uL; Eosinophils% 1.2 % (0-5); Hematocrit 42.4 % (40-54); Hemoglobin 14.4 g/dL (13.0-16.5); Lymphocyte # 0.84 X10^3/ul (0.83-4.51); Lymphocyte % 11.1 % (19-41); Mean Corpuscular Hgb 30.4 pg (27.0-32.0); Mean Corpuscular Volume 89.5 fL (80-94); Mean Platelet Vol. 10.9 fl (6.2-12.0); Monocyte# 0.29 X10^3/uL; Monocyte% 3.8 % (0-10); NRBC Flagged by Analyzer 0 % (0-5); Neutrophil # 6.33 X10^3/uL (2.7-7.7); Neutrophil % 83.3 % (47-70); Platelet Count 117 K/mm3 (150-450); RBC Distribution Width CV 12.7 % (11.6-14.6); RBC Distribution Width SD 42.1 fl (35.1-43.9); Red Blood Count 4.74 M/mm3 (4.6-6.2); White Blood Count 7.6 K/mm3 (4.4-11.0)
[2022-09-14 05:18] LABS: Anion Gap 6 (5-15); BUN 8 mg/dL (7-18); BUN/Creat Ratio 12.7 RATIO (10-20); Calcium,Total 7.7 mg/dL (8.5-10.1); Chloride 111 mmol/L (98-107); Creatinine, Serum 0.63 mg/dL (0.70-1.30); EST Glomerular Filtration Rate 148 mL/min (>60); Est Glom Filt Rate - Afr Amer 180 mL/min (>60); Estimated Creatinine Clearance 162.69 ml/min; Glucose 94 mg/dL (74-106); Potassium 3.6 mmol/L (3.5-5.1); Sodium Level 140 mmol/L (136-145)
--- NOTE | 2022-09-14 06:04 | PN.HOSP_ITS ---
Reason for Visit Reason for Visit: Diagnoses Alcohol abuse, uncomplicated (09/12/22) Alcohol use, unspecified with withdrawal delirium (09/12/22) Epilepsy, unspecified, not intractable, without status epilepticus (09/12/22) Acute kidney failure, unspecified (09/12/22) Subjective Subjective Patient overnight with onset of fevers with concern for episode of severe agitation with necessity for resumption of sedation with fentanyl, propofol and Precedex with additional possible emesis of his tube feeds which were held. This a.m. Zosyn initiated for concern for aspiration pneumonia as likely etiology for onset of fevers. Patient intubated and heavily sedated at this time with inability to answer any review of system questions Objective Data Objective Data Vital Signs: Vital Signs Temp Pulse Resp BP Pulse Ox O2 Del Method O2 Flow Rate 100.2 F H 83 17 126/88 H 98 Mechanical Ventilator 2 09/14/22 05:00 09/14/22 05:00 09/14/22 05:00 09/14/22 05:00 09/14/22 05:00 09/14/22 05:00 09/12/22 10:49 FiO2 50 09/14/22 05:00 Oxygen Flow Rate (L/min) 2 Oxygen Delivery Method Mechanical Ventilator Weight: 193 lb 5.526 oz Body Mass Index (BMI) 27.0 Intake & Output: Intake and Output for Last 24 Hours 09/12/22 09/13/22 09/14/22 23:59 23:59 23:59 Intake Total 2995.44 / 3002.35 4479.47 / 4600.10 639.59 / 639.59 Output Total 1600 / 1600 1750 / 1750 300 / 300 Balance 1395.44 / 1402.35 2729.47 / 2850.10 339.59 / 339.59 Lab / Micro Data 09/14/22 04:55 09/14/22 04:55 Labs: Laboratory Results - last 24 hr 09/14/22 04:55: WBC 7.6, RBC 4.74, Hgb 14.4, Hct 42.4, MCV 89.5, MCH 30.4, MCHC 34.0, RDW Std Deviation 42.1, RDW Coeff of Carmine 12.7, Plt Count 117 L, MPV 10.9, Immature Gran % (Auto) 0.300, Neut % (Auto) 83.3 H, Lymph % (Auto) 11.1 L, [place] % (Auto) 3.8, Eos % (Auto) 1.2, Baso % (Auto) 0.3, Absolute Neuts (auto) 6.3, Absolute Lymphs (auto) 0.84, Nucleated RBC % 0, Sodium 140, Potassium 3.6, Chloride 111 H, Carbon Dioxide 23.0, Anion Gap 6, BUN 8, Creatinine 0.63 L, Estim Creat Clear Calc 162.69, Est GFR (MDRD) Af Amer 180, Est GFR (MDRD) Non-Af 148, BUN/Creatinine Ratio 12.7, Glucose 94, Calcium 7.7 L Micro: Microbiology 09/12/22 13:50 Sputum, Induced/Lukens Gram Stain - Final 09/12/22 13:50 Sputum, Induced/Lukens Respiratory Culture - Preliminary Appears to be normal respiratory dejah. Further studies to follow. Radiography Diagnostic Testing: Radiology Impression Chest X-Ray 09/13/22 06:20 IMPRESSION: 1. Status post intubation and nasogastric tube placement. 2. No active pulmonary disease. Electronically Signed: Sharon Zuleta MD at 6:38 EDT , Chest X-Ray 09/13/22 23:15 IMPRESSION: 1. Left basilar airspace disease and small pleural effusion. Findings may indicate pneumonia. 2. Endotracheal tube with tip 4.9 cm above the marilee. Electronically Signed: Lobo Kay MD at 0:06 EDT , Rhythm Strip Rhythm Strip: Sinus Tach Rate: 112 Ectopy: None Physical Exam Narrative Physical Examination: General: Intubated, heavily sedated, unable to answer orientation questions or follow commands, laying in the ICU bed, calm currently. Skin: Normal color, normal turgor, no icterus, no cyanosis. HEENT: AT/NC, EOM unable to be assessed given heavy sedation, PERRLA, mildly dry MM, ET tube in place. Lungs: Diminished, symmetric rise, intubated and sedated, currently no rales, ronchi or wheezing. Heart: Currently regular rate and rhythm; no gallop, rub audible. Abdomen: Soft, NTTP, ND, mildly hyperactive BS. Extremities: No cyanosis, clubbing, or edema. Neurological: Intubated, heavily sedated, unable to answer orientation questions or follow commands, laying in the ICU bed, calm currently, cognitive function not baseline intact; pupils equally reactive to light and accommodation, cranial nerves unable to be assessed well given heavy sedation, intubated, strength accordingly severely globally decreased. Psychiatric: Affect appears flat, heavily sedated,no acute evidence of depressive or anxiety feelings. Assessment & Plan Assessment/Plan (1) Delirium tremens: PLAN: Plan The patient is a 41 y/o M w/ PMHx: Seizure disorder, EtOH abuse who presents to the [facility] ED on 09/12/22 with history of recurrent alcohol abuse with recent heavy alcohol intake although unsure amount and unclear if patient has been taking his antiepileptic drugs presenting with multiple seizures and hypoxia eventually intubated secondary to severe agitation and concern of self-harm. #1. Breakthrough seizures/status epilepticus with seizure disorder, compounded by recent acute alcohol intake with potential withdrawal as well as potentially missed antiepileptic medication: Admitted to the ICU, intubated, sedated, maintain on antiepileptic medication currently with IV Depacon and Keppra with oral transition once appropriate, although likely confounded again by alcohol abuse with withdrawal would benefit greatly from following up with neurology outpatient, as needed IV Ativan for seizure breakthrough activity, 09/14/2022 initiation of IV Zosyn for concern for aspiration as patient with severe agitation when attempted to wean sedation with emesis of his tube feeds with current hold, MRSA screen also quested and noted to be negative, sputum culture culture from 09/12/2022 with appearance of normal respiratory dejah however final pending. #2. Acute EtOH Withdrawal contributing to breakthrough seizure activity/delirium tremens as noted #1 with underlying history of alcoholic hepatitis: As noted currently intubated and sedated in the ICU, will continue supplementation of magnesium and phosphorus as needed, currently maintained on Precedex, will continue thiamine and folic acid, once extubated transition over to CIWA and continue also taper with phenobarb depending on the timeline of intubation and sedation with Precedex, case management consulted and following. #3. Suspected Aspiration, possibly pneumonitis versus developing pneumonia: Patient with severe episode of agitation and suspected aspiration event, 09/14/2022 initiated on IV Zosyn, MRSA screen requested per ICU physician and not ed to be negative, sputum culture culture from 09/12/2022 with appearance of normal respiratory dejah however final pending, will encourage head of bed, I-S once patient is actually extubated and appropriate, will obtain chest x-ray in a.m. to reassess. #4. Acute kidney injury: Secondary to acute presentation with multiple seizures and alcohol withdrawal. Admission BUN/Cr 16/1.61, repeat creatinine 09/14/2022 0.63, resolved. Will continue to hydrate and trend CMP. #5. Hyperglycemia, suspected stress response: Initial admission glucose 210, has since normalized, if recurrent elevations would obtain hemoglobin A1c. #6. Transient lactic acidosis, likely secondary to acute kidney injury, alcohol withdrawal and breakthrough seizures as noted as well as hypoxia: Admission lactic acid 2.2, hydrated, repeat trended lactic acid resolved 1.6, continue judicious hydration. #7. Hypokalemia: Admission K+ 3.1, supplementation given, has since normalized, 09/14/2022 potassium 3.6, continue to trend. #8. Tobacco Abuse: Encouraged cessation, inpatient consultation per RT, NR if desired. #9. GERD: We will maintain on famotidine. #10. DVT prophylaxis: Heparin. Charges/Coding Visit Charges Inpatient E&M: 71692 [facility] Hosp L3
--- NOTE | 2022-09-14 07:29 | PN.CC_ITS ---
Assessment & Plan Assessment/Plan (1) Delirium tremens: PLAN: Plan RECOMMENDATIONS: 1. Continue current sedation regimen. Attempt to wean propofol while uptitrating Precedex. 2. Consider addition of Seroquel, pending clinical course over the next 24 hours. 3. Continue assist-control mode of mechanical ventilation. Wean FiO2 for saturations greater than 90%. 4. Initiate Zosyn. Check MRSA screen. 5. Attempt to restart tube feeds. 6. Continue thiamine and folate along with phenobarbital taper. 7. Continue antiepileptics. 8. Continue appropriate GI and DVT prophylaxis. IMPRESSIONS: 1. Acute respiratory failure Appears to be secondary to metabolic encephalopathy in the setting of delirium tremens. The patient appears to be experiencing breakthrough seizure activity in the setting of medication noncompliance and is likely experiencing acute alcohol withdrawal symptoms as well. He was ultimately intubated in the emergency department. Plan to continue current supportive measures including a combination of propofol, Precedex and fentanyl for sedation. Over the course of the day, we will attempt to uptitrate Precedex and wean propofol as tolerated. Given the basilar airspace disease noted on chest imaging and low-grade fevers, will will start the patient empirically on antibiotics. Plan to attempt to r estart tube feeds today as tolerated. 2. Status epilepticus The patient does have a history of an unspecified seizure disorder with subtherapeutic medication level suggesting outpatient noncompliance. Plan to continue current antiepileptic regimen along with as needed benzodiazepines and seizure precautions. 3. Acute kidney injury Most likely prerenal in etiology. Creatinine has normalized with volume expansion. Continue to monitor urine output. No current indication for renal replacement therapy. 4. History of chronic alcohol dependency/chronic tobacco dependency/Udncu-Gaxqytwhl-Issoa syndrome Complicates care, management, recovery and prognosis. Continue phenobarbital taper as tolerated. Resume tube feeds today as tolerated. TIME: 34 minutes of critical care time, independent of procedures, was spent addressing the patient's acute respiratory failure, status epilepticus, acute kidney injury, review of all data and collaboration with the care team. Subjective Subjective The patient was seen and examined at the bedside this morning. Events from the last 24 hours have been reviewed. The patient currently has a low-grade fever but remains otherwise hemodynamically stable on assist control mode of mechanical ventilation with an FiO2 requirement of 50%. According to nursing report, the patient becomes extremely agitated and non directable when sedation is weaned. The patient is currently documented to be overall net +4.7 L for the hospitalization. Objective Data Objective Data The patient's most recent lab work, culture data and imaging studies have all been personally reviewed. Vital Signs: Vital Signs Temp Pulse Resp BP Pulse Ox O2 Del Method O2 Flow Rate 100.6 F H 82 20 H 130/90 H 95 Mechanical Ventilator 2 09/14/22 07:00 09/14/22 07:00 09/14/22 07:00 09/14/22 07:00 09/14/22 06:52 09/14/22 07:00 09/12/22 10:49 FiO2 50 09/14/22 07:00 Oxygen Flow Rate (L/min) 2 Oxygen Delivery Method Mechanical Ventilator Weight: 193 lb 5.526 oz Body Mass Index (BMI) 27.0 Intake & Output: Intake and Output for Last 24 Hours 09/12/22 09/13/22 09/14/22 23:59 23:59 23:59 Intake Total 2995.44 / 3002.35 4479.47 / 4600.10 873.65 / 873.65 Output Total 1600 / 1600 1750 / 1750 300 / 300 Balance 1395.44 / 1402.35 2729.47 / 2850.10 573.65 / 573.65 Lab / Micro Data Attestation: I reviewed the patient's lab results. 09/15/22 04:25 09/15/22 04:25 Labs: Laboratory Results - last 24 hr 09/14/22 04:55: WBC 7.6, RBC 4.74, Hgb 14.4, Hct 42.4, MCV 89.5, MCH 30.4, MCHC 34.0, RDW Std Deviation 42.1, RDW Coeff of Carmine 12.7, Plt Count 117 L, MPV 10.9, Immature Gran % (Auto) 0.300, Neut % (Auto) 83.3 H, Lymph % (Auto) 11.1 L, [place] % (Auto) 3.8, Eos % (Auto) 1.2, Baso % (Auto) 0.3, Absolute Neuts (auto) 6.3, Absolute Lymphs (auto) 0.84, Nucleated RBC % 0, Sodium 140, Potassium 3.6, Chloride 111 H, Carbon Dioxide 23.0, Anion Gap 6, BUN 8, Creatinine 0.63 L, Estim Creat Clear Calc 162.69, Est GFR (MDRD) Af Amer 180, Est GFR (MDRD) Non-Af 148, BUN/Creatinine Ratio 12.7, Glucose 94, Calcium 7.7 L Micro: Microbiology 09/12/22 13:50 Sputum, Induced/Lukens Gram Stain - Final 09/12/22 13:50 Sputum, Induced/Lukens Respiratory Culture - Preliminary Appears to be normal respiratory dejah. Further studies to follow. Radiography Diagnostic Testing: Radiology Impression Chest X-Ray 09/13/22 23:15 IMPRESSION: 1. Left basilar airspace disease and small pleural effusion. Findings may indicate pneumonia. 2. Endotracheal tube with tip 4.9 cm above the marilee. Electronically Signed: Lobo Kay MD at 0:06 EDT , Rhythm Strip Rhythm Strip: Sinus Tach Rate: 112 Ectopy: None Physical Exam Const Constitutional Narrative: Intubated, sedated and mechanically ventilated. No ventilator dyssynchrony noted. HEENT normocephalic and head/scalp atraumatic Mouth: endotracheal tube in place and OG tube in place Eyes PERRL and EOMs intact bilaterally Neck supple General: trachea midline Chest inspection of chest normal Resp normal respiratory effort Auscultation: Negative for rales, rhonchi or wheezes Cardio regular rate and regular rhythm GI normal to inspection, nondistended, normoactive bowel sounds Extremity no clubbing, cyanosis or edema Skin no rashes or lesions noted Neuro Sensorium / Orientation: sedated on vent Charges/Coding Procedures Hospitalists Procedures: [id number] Critial Care 1st Hr
[2022-09-14] MEDS: Famotidine 20 MG Tablet PO ×2 (08:14→21:06)
[2022-09-14] MEDS: Thiamine Hydrochloride 100 MG Tablet GT (08:14)
[2022-09-14] MEDS: Chlorhexidine 15 ML PO ×2 (08:14→20:45)
[2022-09-14] MEDS: Folic Acid 1 MG Tablet GT (08:14)
[2022-09-14] MEDS: Heparin Injection (Vial) 5,000 UNIT/ML VIAL 5000 UNIT SC ×2 (10:16→20:51)
[2022-09-14] MEDS: levETIRAcetam IV 1,000 MG/100 ML BAG 400 MG IV ×2 (10:26→20:53)
[2022-09-14] MEDS: Vital AF 1.2 Cal Liquid 1,000 ML 20 ML GT (10:28)
[2022-09-14 11:15] LABS: M R Staph aureus DNA By PCR Negative (Negative); Probe Check PASS; Specimen Processing Control PASS
[2022-09-14] MEDS: Dexmedetomidine 1,000 mcg in 0.9% NS 240 mL 32.9 MCG CONT INF ×2 (11:42→18:46)
[2022-09-14] MEDS: Acetaminophen 650 MG/20 ML UDC GT ×2 (12:24→18:47)
[2022-09-14] MEDS: Propofol 10MG/Ml 1,000 MG/100 ML Bottle 13.2 MG CONT INF (15:28)
--- NOTE | 2022-09-14 16:10 | RAD_ITS ---
STUDY: X-RAY CHEST REASON FOR EXAM: Male, 41 years old. ETT placement TECHNIQUE: AP portable COMPARISON: September 13 11:14 PM FINDINGS: Mild right lower lobe atelectasis or infiltrate with minor basilar atelectasis on the left. There is no demonstrated pleural abnormality. Endotracheal tube noted with tip 4.1 cm proximal to marilee. Normal size heart. Normal mediastinum and janett. Normal visualized pulmonary arteries. Normal visualized aortic arch and descending thoracic aorta. Normal visualized thoracic spine. Normal visualized ribs, clavicles, and shoulders. Nasogastric tube is present with tip in the proximal gastric fundus There is no demonstrated abnormality of the visualized soft tissue structures of the upper abdomen. Improved aeration of left lower lobe since previous exam. The right lower lobe airspace disease is new RAD/Chest 1 View (Portable) IMPRESSION: Mild right lower lobe atelectasis or infiltrate. Status post intubation. Electronically Signed: Ruben Davis MD at 17:06 EDT ,
[2022-09-14] MEDS: fentaNYL drip 100 ML 20 MCG CONT INF (18:47)
[2022-09-15] VITALS (30 sets, daily range): BP systolic 108–128; BP diastolic 72–86; PULSE 78–89; RESP 13–20; TEMP 37.9–38.7; O2SAT 89–98; BMI 27.1
[2022-09-15] MEDS: Phenobarbital 32.4 MG Tablet GT ×5 (00:06→22:00)
[2022-09-15] MEDS: Dexmedetomidine 1,000 mcg in 0.9% NS 240 mL 32.9 MCG CONT INF ×4 (00:07→21:12)
[2022-09-15] MEDS: fentaNYL drip 100 ML 20 MCG CONT INF ×5 (00:08→21:00)
[2022-09-15] MEDS: Propofol 10MG/Ml 1,000 MG/100 ML Bottle 15.8 MG CONT INF ×2 (01:56→07:45)
[2022-09-15 04:44] LABS: Absolute Lymphocyte Count 0.42 X10^3/uL (0.83-4.51); Absolute Neutrophil Count 4.9 X10^3/uL (2.0-7.7); Basophil# 0.03 X10^3/uL; Basophil% 0.5 % (0-1); Eosinophil# 0.11 X10^3/uL; Eosinophils% 1.9 % (0-5); Hematocrit 41.3 % (40-54); Hemoglobin 13.7 g/dL (13.0-16.5); Lymphocyte # 0.42 X10^3/ul (0.83-4.51); Lymphocyte % 7.3 % (19-41); Mean Corp Hgb Conc 33.2 g/dL (32-36); Mean Corpuscular Hgb 29.8 pg (27.0-32.0); Mean Corpuscular Volume 89.8 fL (80-94); Mean Platelet Vol. 10.9 fl (6.2-12.0); Monocyte# 0.34 X10^3/uL; Monocyte% 5.9 % (0-10); NRBC Flagged by Analyzer 0 % (0-5); Neutrophil # 4.85 X10^3/uL (2.7-7.7); Neutrophil % 84.1 % (47-70); POSITIVE DIFFERENTIAL YES; POSITIVE MORPHOLOGY YES; Platelet Count 100 K/mm3 (150-450); RBC Distribution Width CV 12.8 % (11.6-14.6); RBC Distribution Width SD 41.8 fl (35.1-43.9); White Blood Count 5.8 K/mm3 (4.4-11.0)
[2022-09-15 05:01] LABS: ALB/GLOB Ratio 0.6 RATIO (0.9-2.4); AST(SGOT) 11 U/L (15-37); Alanine Aminotransfer ALT/SGPT 13 U/L (16-61); Albumin, Serum 2.3 g/dL (3.2-5.0); Alkaline Phosphatase 45 U/L (45-117); Anion Gap 5 (5-15); BUN 5 mg/dL (7-18); BUN/Creat Ratio 7.1 RATIO (10-20); Chloride 109 mmol/L (98-107); Creatinine, Serum 0.71 mg/dL (0.70-1.30); EST Glomerular Filtration Rate 129 mL/min (>60); Est Glom Filt Rate - Afr Amer 156 mL/min (>60); Estimated Creatinine Clearance 144.35 ml/min; Globulin 3.6 g/dL (2.2-4.2); Glucose 123 mg/dL (74-106); Magnesium 1.8 mg/dL (1.6-2.6); Phosphorus 1.8 mg/dL (2.5-4.9); Potassium 3.5 mmol/L (3.5-5.1); Protein, Total 5.9 g/dL (6.4-8.2); Sodium Level 139 mmol/L (136-145)
[2022-09-15 05:03] LABS: Differential Indicated SCAN CRITERIA MET
--- NOTE | 2022-09-15 05:55 | RAD_ITS ---
EXAM: XR CHEST, 1 VIEW CLINICAL INDICATION: Aspiration Aspiration TECHNIQUE: Frontal view of the chest. COMPARISON: Chest x-ray 09/14/2022 FINDINGS: LUNGS AND PLEURAL SPACES: There is right basilar opacification which is worsened from previous study. There is mild atelectasis or infiltration in the medial left lung base which is also slightly worsened. No pneumothorax. No effusion. HEART: Unremarkable. Cardiac silhouette not enlarged. MEDIASTINUM: Central airways and mediastinal contour are unremarkable. BONES/JOINTS: Unremarkable. SOFT TISSUES: Unremarkable. TUBES, LINES AND DEVICES: The endotracheal tube (ETT) is in satisfactory position with tip 4.3 cm above the marilee. There is a nasogastric tube with tip and sidehole in the stomach. RAD/Chest 1 View (Portable) IMPRESSION: 1. Bilateral basilar atelectasis and/or infiltration, right greater than left. There is interval worsening from yesterday''s study. 2. Tubes are in adequate position. Electronically Signed: Colton Lainez MD at 5:29 EDT ,
[2022-09-15] MEDS: Folic Acid 1 MG Tablet GT (07:45)
[2022-09-15] MEDS: Thiamine Hydrochloride 100 MG Tablet GT (07:45)
[2022-09-15] MEDS: Famotidine 20 MG Tablet PO ×2 (07:45→22:01)
[2022-09-15] MEDS: Chlorhexidine 15 ML PO ×2 (08:07→21:02)
--- NOTE | 2022-09-15 08:32 | PCM.PN.INT ---
Assessment & Plan Assessment/Plan (1) Delirium tremens: PLAN: Plan RECOMMENDATIONS: 1. Recheck triglyceride level and attempt to wean propofol, as tolerated. 2. Continue Precedex and fentanyl. 3. Start scheduled Seroquel today. 4. Continue assist-control mode of mechanical ventilation. Wean FiO2 for saturations greater than 90%. 5. Continue empiric antimicrobials. 6. Continue thiamine and folate along with phenobarbital taper. 7. Continue antiepileptics. 8. Continue appropriate GI and DVT prophylaxis. IMPRESSIONS: 1. Acute respiratory failure Appears to be secondary to metabolic encephalopathy in the setting of delirium tremens. The patient appears to be experiencing breakthrough seizure activity in the setting of medication noncompliance and is likely experiencing acute alcohol withdrawal symptoms as well. He was ultimately intubated in the emergency department. Plan to continue current supportive measures including a combination of propofol, Precedex and fentanyl for sedation. Given the basilar airspace disease noted on chest imaging and low-grade fevers, we will plan to continue empiric antimicrobials while awaiting finalized culture results. 2. Status epilepticus The patient does have a history of an unspecified seizure disorder with subtherapeutic medication level suggesting outpatient noncompliance. Plan to continue current antiepileptic regimen along with as needed benzodiazepines and seizure precautions. 3. Acute kidney injury Resolved. Most likely prerenal in etiology. Creatinine has normalized with volume expansion. Continue to monitor urine output. No current indication for renal replacement therapy. 4. History of chronic alcohol dependency/chronic tobacco dependency/Fwzwh-Agcizogeq-Mbzfp syndrome Complicates care, management, recovery and prognosis. Continue phenobarbital taper as tolerated. Hold tube feeds today given high residuals. Initiate bowel regimen. TIME: 32 minutes of critical care time, independent of procedures, was spent addressing the patient's acute respiratory failure, status epilepticus, acute kidney injury, review of all data and collaboration with the care team. Subjective Subjective The patient was seen and examined at the bedside this morning. Events from the last 24 hours have been reviewed. The patient has had low-grade fevers overnight. He remains otherwise hemodynamically stable on assist control mode mechanical ventilation with an FiO2 requirement of 50%. The patient is currently documented to be overall net +4.7 L for the hospitalization. Platelet count remains low this morning at 100,000. The patient continues to be significantly agitated with weaning of sedation. Objective Data Objective Data The patient's most recent lab work, culture data and imaging studies have all been personally reviewed. Sputum culture has not demonstrated any growth to date. Vital Signs: Vital Signs Temp Pulse Resp BP Pulse Ox O2 Del Method O2 Flow Rate 100.8 F H 81 19 H 122/84 H 97 Mechanical Ventilator 2 09/15/22 08:00 09/15/22 08:00 09/15/22 08:00 09/15/22 08:00 09/15/22 08:00 09/15/22 08:00 09/12/22 10:49 FiO2 50 09/15/22 08:00 Oxygen Flow Rate (L/min) 2 Oxygen Delivery Method Mechanical Ventilator Weight: 194 lb 3.636 oz Body Mass Index (BMI) 27.1 Intake & Output: Intake and Output for Last 24 Hours 09/13/22 09/14/22 09/15/22 23:59 23:59 23:59 Intake Total 4479.47 / 4600.10 2373.54 / 2435.39 1030.75 / 1030.75 Output Total 1750 / 1750 1685 / 1685 1100 / 1100 Balance 2729.47 / 2850.10 688.54 / 750.39 -69.25 / -69.25 Lab / Micro Data Attestation: I reviewed the patient's lab results. 09/15/22 04:25 09/15/22 04:25 Labs: Laboratory Results - last 24 hr 09/14/22 08:50: MRSA (PCR) Negative 09/15/22 04:25: WBC 5.8, RBC 4.60, Hgb 13.7, Hct 41.3, MCV 89.8, MCH 29.8, MCHC 33.2, RDW Std Deviation 41.8, RDW Coeff of Carmine 12.8, Plt Count 100 L, MPV 10.9, Immature Gran % (Auto) 0.300, Neut % (Auto) 84.1 H, Lymph % (Auto) 7.3 L, [place] % (Auto) 5.9, Eos % (Auto) 1.9, Baso % (Auto) 0.5, Absolute Neuts (auto) 4.9, Absolute Lymphs (auto) 0.42 L, Nucleated RBC % 0, Sodium 139, Potassium 3.5, Chloride 109 H, Carbon Dioxide 25.0, Anion Gap 5, BUN 5 L, Creatinine 0.71, Estim Creat Clear Calc 144.35, Est GFR (MDRD) Af Amer 156, Est GFR (MDRD) Non-Af 129, BUN/Creatinine Ratio 7.1 L, Glucose 123 H, Calcium 8.0 L, Phosphorus 1.8 L, Magnesium 1.8, Total Bilirubin 0.70, AST 11 L, ALT 13 L, Alkaline Phosphatase 45, Total Protein 5.9 L, Albumin 2.3 L, Globulin 3.6, Albumin/Globulin Ratio 0.6 L Micro: Microbiology 09/12/22 13:50 Sputum, Induced/Lukens Gram Stain - Final 09/12/22 13:50 Sputum, Induced/Lukens Respiratory Culture - Final Mixed normal respiratory dejah. No Streptococcus pneumoniae, beta-hemolytic Streptococcus or Staphylococcus aureus isolated. Radiography Diagnostic Testing: Radiology Impression Chest X-Ray 09/14/22 16:10 IMPRESSION: Mild right lower lobe atelectasis or infiltrate. Status post intubation. Electronically Signed: Ruben Davis MD at 17:06 EDT , Chest X-Ray 09/15/22 05:55 IMPRESSION: 1. Bilateral basilar atelectasis and/or infiltration, right greater than left. There is interval worsening from yesterday''s study. 2. Tubes are in adequate position. Electronically Signed: Colton Lainez MD at 5:29 EDT , Rhythm Strip Rhythm Strip: Sinus Tach Rate: 112 Ectopy: None Physical Exam Const Constitutional Narrative: Intubated, sedated and mechanically ventilated. No ventilator dyssynchrony noted. HEENT normocephalic and head/scalp atraumatic Mouth: endotracheal tube in place and OG tube in place Eyes PERRL and EOMs intact bilaterally Neck supple General: trachea midline Chest inspection of chest normal Resp normal respiratory effort Auscultation: Negative for rales, rhonchi or wheezes Cardio regular rate and regular rhythm GI normal to inspection, nondistended, normoactive bowel sounds Extremity no clubbing, cyanosis or edema Skin no rashes or lesions noted Neuro Sensorium / Orientation: sedated on vent Charges/Coding Procedures Hospitalists Procedures: [id number] Critial Care 1st Hr
--- NOTE | 2022-09-15 09:30 | NURSING ---
This RN spoke with patients mother, Jyoti. Per Jyoti it is OK to give brief and general updates to patients girlfriend Namrata. OK for Namrata to visit, however if she is agitating patient she needs to leave room.
[2022-09-15] MEDS: Heparin Injection (Vial) 5,000 UNIT/ML VIAL 5000 UNIT SC ×2 (09:51→21:02)
[2022-09-15 09:52] LABS: Pathologist Review Reviewed
[2022-09-15] MEDS: Senna/Docusate Sodium 1 Tablet 2 TABLET GT ×2 (09:52→22:00)
[2022-09-15] MEDS: QUEtiapine 25 MG Tablet 50 MG GT ×2 (09:52→22:01)
--- NOTE | 2022-09-15 09:56 | PN_ITS ---
Subjective Subjective Patient seen and examined. He remains intubated and heavily sedated. Per his nurse, patient gets easily agitated with attempts to wean the sedation off. He is currently on high doses of precedex, propofol and fentanyl. His residuals from his tube feeds are high, so tube feeds currently on hold. Objective Data Objective Data Vital Signs: Vital Signs Temp Pulse Resp BP Pulse Ox O2 Del Method O2 Flow Rate 100.8 F H 81 19 H 122/84 H 97 Mechanical Ventilator 2 09/15/22 08:00 09/15/22 08:00 09/15/22 08:00 09/15/22 08:00 09/15/22 08:00 09/15/22 08:00 09/12/22 10:49 FiO2 50 09/15/22 08:00 Oxygen Flow Rate (L/min) 2 Oxygen Delivery Method Mechanical Ventilator Weight: 194 lb 3.636 oz Body Mass Index (BMI) 27.1 Intake & Output: Intake and Output for Last 24 Hours 09/13/22 09/14/22 09/15/22 23:59 23:59 23:59 Intake Total 4479.47 / 4600.10 2373.54 / 2435.39 1495.42 / 1495.42 Output Total 1750 / 1750 1685 / 1685 1100 / 1100 Balance 2729.47 / 2850.10 688.54 / 750.39 395.42 / 395.42 Lab / Micro Data 09/15/22 04:25 09/15/22 04:25 Labs: Laboratory Results - last 24 hr 09/12/22 11:00: Diff Path Review Reviewed 09/14/22 08:50: MRSA (PCR) Negative 09/15/22 04:25: WBC 5.8, RBC 4.60, Hgb 13.7, Hct 41.3, MCV 89.8, MCH 29.8, MCHC 33.2, RDW Std Deviation 41.8, RDW Coeff of Carmine 12.8, Plt Count 100 L, MPV 10.9, Immature Gran % (Auto) 0.300, Neut % (Auto) 84.1 H, Lymph % (Auto) 7.3 L, [place] % (Auto) 5.9, Eos % (Auto) 1.9, Baso % (Auto) 0.5, Absolute Neuts (auto) 4.9, Absolute Lymphs (auto) 0.42 L, Nucleated RBC % 0, Sodium 139, Potassium 3.5, Chloride 109 H, Carbon Dioxide 25.0, Anion Gap 5, BUN 5 L, Creatinine 0.71, Es debra Creat Clear Calc 144.35, Est GFR (MDRD) Af Amer 156, Est GFR (MDRD) Non-Af 129, BUN/Creatinine Ratio 7.1 L, Glucose 123 H, Calcium 8.0 L, Phosphorus 1.8 L, Magnesium 1.8, Total Bilirubin 0.70, AST 11 L, ALT 13 L, Alkaline Phosphatase 45, Total Protein 5.9 L, Albumin 2.3 L, Globulin 3.6, Albumin/Globulin Ratio 0.6 L Micro: Microbiology 09/12/22 13:50 Sputum, Induced/Lukens Gram Stain - Final 09/12/22 13:50 Sputum, Induced/Lukens Respiratory Culture - Final Mixed normal respiratory dejah. No Streptococcus pneumoniae, beta-hemolytic Streptococcus or Staphylococcus aureus isolated. Radiography Diagnostic Testing: Radiology Impression Chest X-Ray 09/14/22 16:10 IMPRESSION: Mild right lower lobe atelectasis or infiltrate. Status post intubation. Electronically Signed: Ruben Davis MD at 17:06 EDT , Chest X-Ray 09/15/22 05:55 IMPRESSION: 1. Bilateral basilar atelectasis and/or infiltration, right greater than left. There is interval worsening from yesterday''s study. 2. Tubes are in adequate position. Electronically Signed: Colton Lainez MD at 5:29 EDT , Rhythm Strip Rhythm Strip: Sinus Tach Rate: 112 Ectopy: None Physical Exam Const Constitutional Narrative: intubated, sedated, RASS score is -4. HEENT normocephalic and head/scalp atraumatic Neck supple Lymph Lymphatic: no lymphadenopathy noted Resp Resp Narrative: intubated, sedated, diminished breath sounds bibasally, no wheezes or crackles. Cardio regular rate, regular rhythm, S1 normal heart sound, S2 normal heart sound and no murmurs GI normal to inspection, nondistended, normoactive bowel sounds, soft to palpation, non-tender and non-distended Extremity normal capillary refill and no clubbing, cyanosis or edema Skin General Skin Exam: no breakdown Neuro Neuro Narrative: intubated, sedated, RASS score is -4 Assessment & Plan Assessment/Plan (1) CHEVY (acute kidney injury): (2) Encephalopathy acute: (3) Recurrent seizures: (4) Alcoholic hepatitis: PLAN: Plan #Status epilepticus in setting of seizure disorder and exacerbated by alcohol dependence * currently intubated and sedated; on propofol, fentanyl and precedex drips. * -on keppra drip as well as IV depakote infusion * critical care on board * seizure precautions * #Acute alcohol withdrawal * on precedex drip. Currently intubated and sedated * on thiamine, folic acid. * critical care on board * #PRobable aspiration pneumonia * on IV zosyn. sputum culture showing mixed normal respiratory dejah * has a fever of 100.8F this morning. * CXR today showed bilateral basilar atelectasis and/or infiltration, right greater than left, with interval worsening from yesterday * critical care on board * #CHEVY: resolved. #Elevated triglycerides * likely due to propofol. To consider stopping propofol if Triglycerides continue trending upwards * #GERD: on famotidine. DVT prophylaxis; heparin. Charges/Coding Visit Charges Inpatient E&M: 40077 [facility] Hosp L3
[2022-09-15] MEDS: Acetaminophen 650 MG/20 ML UDC GT (10:04)
[2022-09-15] MEDS: CHLORHEXIDINE GLUC 2% CLOTH 1 EACH TOWELETTE TOPICAL (10:05)
[2022-09-15 10:10] LABS: Triglycerides 155 mg/dL
[2022-09-15 10:23] LABS: CPK Total, Creatine Kinase 62 U/L (39-308)
[2022-09-15] MEDS: Propofol 10MG/Ml 1,000 MG/100 ML Bottle 10.5 MG CONT INF ×2 (13:31→21:00)
--- NOTE | 2022-09-15 15:15 | CASEMGMT ---
JUAN JOSE CM: Pt remains on vent and unable to participate in assessment. Call placed to pt's next of kin/parents and voicemail received. Message left requesting a return call. Moiz De Oliveira RN CM
[2022-09-16] VITALS (36 sets, daily range): BP systolic 106–121; BP diastolic 70–83; PULSE 75–97; RESP 13–34; TEMP 37.2–43.6; O2SAT 80–98; BMI 27.5
[2022-09-16] MEDS: fentaNYL drip 100 ML 20 MCG CONT INF ×5 (02:38→23:55)
--- NOTE | 2022-09-16 02:45 | NURSING ---
MAR shows fentanyl was infused at 0200 and restarted at 0238. However, fentanyl was never paused and continued to run at 200mcg/hr.
[2022-09-16] MEDS: Propofol 10MG/Ml 1,000 MG/100 ML Bottle 10.5 MG CONT INF (04:34)
[2022-09-16] MEDS: Dexmedetomidine 1,000 mcg in 0.9% NS 240 mL 32.9 MCG CONT INF (04:37)
[2022-09-16] MEDS: Phenobarbital 32.4 MG Tablet GT ×3 (04:48→17:08)
[2022-09-16 05:14] LABS: Absolute Lymphocyte Count 0.45 X10^3/uL (0.83-4.51); Absolute Neutrophil Count 5.8 X10^3/uL (2.0-7.7); Basophil# 0.04 X10^3/uL; Basophil% 0.6 % (0-1); Eosinophil# 0.16 X10^3/uL; Eosinophils% 2.2 % (0-5); Hematocrit 41.2 % (40-54); Hemoglobin 13.6 g/dL (13.0-16.5); Lymphocyte # 0.45 X10^3/ul (0.83-4.51); Lymphocyte % 6.3 % (19-41); Mean Corpuscular Hgb 30.2 pg (27.0-32.0); Mean Corpuscular Volume 91.4 fL (80-94); Monocyte# 0.65 X10^3/uL; Monocyte% 9.1 % (0-10); NRBC Flagged by Analyzer 0 % (0-5); Neutrophil % 81.2 % (47-70); POSITIVE COUNT YES; POSITIVE DIFFERENTIAL YES; POSITIVE MORPHOLOGY YES; Platelet Count 86 K/mm3 (150-450); RBC Distribution Width SD 43.4 fl (35.1-43.9); Red Blood Count 4.51 M/mm3 (4.6-6.2); White Blood Count 7.1 K/mm3 (4.4-11.0)
[2022-09-16 05:15] LABS: Differential Indicated SCAN CRITERIA MET
[2022-09-16 05:30] LABS: ALB/GLOB Ratio 0.5 RATIO (0.9-2.4); AST(SGOT) 13 U/L (15-37); Alanine Aminotransfer ALT/SGPT 14 U/L (16-61); Alkaline Phosphatase 47 U/L (45-117); Anion Gap 6 (5-15); BUN 7 mg/dL (7-18); BUN/Creat Ratio 11.8 RATIO (10-20); Calcium,Total 8.1 mg/dL (8.5-10.1); Chloride 109 mmol/L (98-107); Creatinine, Serum 0.59 mg/dL (0.70-1.30); EST Glomerular Filtration Rate 159 mL/min (>60); Est Glom Filt Rate - Afr Amer 192 mL/min (>60); Estimated Creatinine Clearance 173.71 ml/min; Glucose 89 mg/dL (74-106); Magnesium 1.8 mg/dL (1.6-2.6); Phosphorus 1.7 mg/dL (2.5-4.9); Potassium 3.7 mmol/L (3.5-5.1); Sodium Level 142 mmol/L (136-145)
[2022-09-16 05:41] LABS: Platelet Estimate MOD DEC (ADEQ)
--- NOTE | 2022-09-16 06:21 | NURSING ---
Unable to chart fentanyl titrations on the APR starting at 0500. Fentanyl running at 200mcg/hr until 0600. At 0600, fentanyl decreased to 100mcg/hr for SAT/SBT protocol. Pharmacy notified of issues with charting. New fentanyl order being placed to try to fix problem with charting titrations.
--- NOTE | 2022-09-16 07:09 | PN.CC_ITS ---
Assessment & Plan Assessment/Plan (1) Delirium tremens: PLAN: Plan RECOMMENDATIONS: 1. Continue current sedation regimen, including propofol, Precedex and fentanyl. 2. Continue scheduled Seroquel. 3. Continue assist-control mode of mechanical ventilation. Wean FiO2 for saturations greater than 90%. 4. Continue empiric antimicrobials. 5. Continue thiamine and folate along with phenobarbital taper. 6. Continue antiepileptics. 7. Continue appropriate GI and DVT prophylaxis. 8. Attempt to restart trophic tube feeds today. IMPRESSIONS: 1. Acute respiratory failure Appears to be secondary to metabolic encephalopathy in the setting of delirium tremens. The patient appeared to be experiencing breakthrough seizure activity in the setting of medication noncompliance and is likely experiencing acute alcohol withdrawal symptoms as well. He was ultimately intubated in the emergency department. Plan to continue current supportive measures including a combination of propofol, Precedex and fentanyl for sedation. Given the basilar airspace disease noted on chest imaging and low-grade fevers, we will plan to continue empiric antimicrobials to complete 7 days of therapy. Plan to continue attempts at spontaneous awakening and breathing trials daily. 2. Status epilepticus The patient does have a history of an unspecified seizure disorder with subtherapeutic medication level suggesting outpatient noncompliance. Plan to continue current antiepileptic regimen along with as needed benzodiazepines and seizure precautions. 3. Acute kidney injury Resolved. Most likely prerenal in etiology. Creatinine has normalized with volume expansion. Continue to monitor urine output. No current indication for renal replacement therapy. 4. History of chronic alcohol dependency/chronic tobacco dependency/Dnrwr-Uscpjubdb-Oaqns syndrome Complicates care, management, recovery and prognosis. Continue phenobarbital taper as tolerated. Attempt to restart trophic tube feeds today. Continue bowel regimen as ordered. TIME: 34 minutes of critical care time, independent of procedures, was spent addressing the patient's acute respiratory failure, status epilepticus, acute kidney injury, review of all data and collaboration with the care team. Subjective Subjective The patient was seen and examined at the bedside this morning. Events from the last 24 hours have been reviewed. The patient continues to have a low-grade fever, but remains otherwise hemodynamically stable on assist control mode of mechanical ventilation. The patient's sedation was weaned this morning and he was placed briefly on a spontaneous breathing trial. His father and brother were both present at the bedside during the breathing trial. Despite this, the patient became profoundly agitated and was noted to have increased endotracheal tube secretions. Therefore, the breathing trial was terminated. The patient's sedation was restarted accordingly. He is currently documented to be overall net +4.5 L for the hospitalization. Phosphorus level is low at 1.7 this morning. Objective Data Objective Data The patient's most recent lab work, culture data and imaging studies have all been personally reviewed. Sputum culture has not demonstrated any growth to date. Vital Signs: Vital Signs Temp Pulse Resp BP Pulse Ox O2 Del Method O2 Flow Rate 110.4 F H 83 15 119/75 96 Mechanical Ventilator 2 09/16/22 06:00 09/16/22 06:00 09/16/22 06:00 09/16/22 06:00 09/16/22 06:00 09/16/22 06:00 09/12/22 10:49 FiO2 40 09/16/22 06:00 Oxygen Flow Rate (L/min) 2 Oxygen Delivery Method Mechanical Ventilator Weight: 196 lb 6.91 oz Body Mass Index (BMI) 27.5 Intake & Output: Intake and Output for Last 24 Hours 09/14/22 09/15/22 09/16/22 23:59 23:59 23:59 Intake Total 2373.54 / 2435.39 3184.40 / 3247.80 571.13 / 571.13 Output Total 1685 / 1685 3100 / 3650 950 / 950 Balance 688.54 / 750.39 84.40 / -402.20 -378.87 / -378.87 Lab / Micro Data Attestation: I reviewed the patient's lab results. 09/16/22 05:05 09/16/22 05:05 Labs: Laboratory Results - last 24 hr 09/12/22 11:00: Diff Path Review Reviewed 09/15/22 09:50: Total Creatine Kinase 62, Triglycerides 155 09/16/22 05:05: WBC 7.1, RBC 4.51 L, Hgb 13.6, Hct 41.2, MCV 91.4, MCH 30.2, MCHC 33.0, RDW Std Deviation 43.4, RDW Coeff of Carmine 13.0, Plt Count 86 L, MPV 11.0, Immature Gran % (Auto) 0.600, Neut % (Auto) 81.2 H, Lymph % (Auto) 6.3 L, [place] % (Auto) 9.1, Eos % (Auto) 2.2, Baso % (Auto) 0.6, Absolute Neuts (auto) 5.8, Absolute Lymphs (auto) 0.45 L, Nucleated RBC % 0, Platelet Estimate MOD DEC, Sodium 142, Potassium 3.7, Chloride 109 H, Carbon Dioxide 27.0, Anion Gap 6, BUN 7, Creatinine 0.59 L, Estim Creat Clear Calc 173.71, Est GFR (MDRD) Af Amer 192, Est GFR (MDRD) Non-Af 159, BUN/Creatinine Ratio 11.8, Glucose 89, Calcium 8.1 L, Phosphorus 1.7 L, Magnesium 1.8, Total Bilirubin 0.50, AST 13 L, ALT 14 L, Alkaline Phosphatase 47, Total Protein 6.0 L, Albumin 2.0 L, Globulin 4.0, Albumin/Globulin Ratio 0.5 L Micro: Microbiology 09/12/22 13:50 Sputum, Induced/Lukens Gram Stain - Final 09/12/22 13:50 Sputum, Induced/Lukens Respiratory Culture - Final Mixed normal respiratory dejah. No Streptococcus pneumoniae, beta-hemolytic Streptococcus or Staphylococcus aureus isolated. Radiography Diagnostic Testing: Radiology Impression Chest X-Ray 09/14/22 16:10 IMPRESSION: Mild right lower lobe atelectasis or infiltrate. Status post intubation. Electronically Signed: Ruben Davis MD at 17:06 EDT , Chest X-Ray 09/15/22 05:55 IMPRESSION: 1. Bilateral basilar atelectasis and/or infiltration, right greater than left. There is interval worsening from yesterday''s study. 2. Tubes are in adequate position. Electronically Signed: Colton Lainez MD at 5:29 EDT , Rhythm Strip Rhythm Strip: Sinus Tach Rate: 112 Ectopy: None Physical Exam Const Constitutional Narrative: Intubated, sedated and mechanically ventilated. No ventilator dyssynchrony noted. HEENT normocephalic and head/scalp atraumatic Mouth: endotracheal tube in place and OG tube in place Eyes PERRL and EOMs intact bilaterally Neck supple General: trachea midline Chest inspection of chest normal Resp Effort and Inspection: tachypneic Auscultation: Negative for rales, rhonchi or wheezes Cardio S1 normal heart sound and S2 normal heart sound Rate: tachycardic GI normal to inspection, nondistended, normoactive bowel sounds Extremity no clubbing, cyanosis or edema Skin no rashes or lesions noted Neuro Neuro Narrative: Intermittently agitated and restless. Sensorium / Orientation: sedated on vent Charges/Coding Procedures Hospitalists Procedures: 16842 Critial Care 1st Hr
--- NOTE | 2022-09-16 07:20 | NURSING ---
0700 pt became very agitated on SBT, thrashing around in the bed, unable to calm down. Oxygen saturation decreased to 80s. Dr. Moses at bedside, instructed to turn sedation back on and increased propofol to 40mcg. Fentanyl increased to 200mcg.
[2022-09-16] MEDS: Folic Acid 1 MG Tablet GT (07:41)
[2022-09-16] MEDS: Thiamine Hydrochloride 100 MG Tablet GT (07:41)
[2022-09-16] MEDS: Chlorhexidine 15 ML PO ×2 (08:09→20:01)
--- NOTE | 2022-09-16 09:48 | PN_ITS ---
Subjective Subjective Patient seen and examined. He remains intubated and sedated. He failed a spontaneous breathing trial today. No other active events overnight. He is currently off tube feeds due to high residuals. Reveals was otherwise negative. Objective Data Objective Data Vital Signs: Vital Signs Temp Pulse Resp BP Pulse Ox O2 Del Method O2 Flow Rate 101.3 F H 90 17 114/72 90 Mechanical Ventilator 2 09/16/22 07:00 09/16/22 07:19 09/16/22 07:19 09/16/22 07:00 09/16/22 07:19 09/16/22 07:00 09/12/22 10:49 FiO2 100 09/16/22 07:00 Oxygen Flow Rate (L/min) 2 Oxygen Delivery Method Mechanical Ventilator Weight: 196 lb 6.91 oz Body Mass Index (BMI) 27.5 Intake & Output: Intake and Output for Last 24 Hours 09/14/22 09/15/22 09/16/22 23:59 23:59 23:59 Intake Total 2373.54 / 2435.39 3184.40 / 3247.80 609.28 / 609.28 Output Total 1685 / 1685 3100 / 3650 1275 / 1275 Balance 688.54 / 750.39 84.40 / -402.20 -665.72 / -665.72 Lab / Micro Data 09/16/22 05:05 09/16/22 05:05 Labs: Laboratory Results - last 24 hr 09/12/22 11:00: Diff Path Review Reviewed 09/15/22 09:50: Total Creatine Kinase 62, Triglycerides 155 09/16/22 05:05: WBC 7.1, RBC 4.51 L, Hgb 13.6, Hct 41.2, MCV 91.4, MCH 30.2, MCHC 33.0, RDW Std Deviation 43.4, RDW Coeff of Carmine 13.0, Plt Count 86 L, MPV 11.0, Immature Gran % (Auto) 0.600, Neut % (Auto) 81.2 H, Lymph % (Auto) 6.3 L, [place] % (Auto) 9.1, Eos % (Auto) 2.2, Baso % (Auto) 0.6, Absolute Neuts (auto) 5.8, Absolute Lymphs (auto) 0.45 L, Nucleated RBC % 0, Platelet Estimate MOD DEC, Sodium 142, Potassium 3.7, Chloride 109 H, Carbon Dioxide 27.0, Anion Gap 6, BUN 7, Creatinine 0.59 L, Estim Creat Clear Calc 173.71, Est GFR (MDRD) Af Amer 192, Est GFR (MDRD) Non-Af 159, BUN/Creatinine Ratio 11.8, Glucose 89, Calcium 8.1 L, Phosphorus 1.7 L, Magnesium 1.8, Total Bilirubin 0.50, AST 13 L, ALT 14 L, Alkaline Phosphatase 47, Total Protein 6.0 L, Albumin 2.0 L, Globulin 4.0, Albumin/Globulin Ratio 0.5 L Micro: Microbiology 09/12/22 13:50 Sputum, Induced/Lukens Gram Stain - Final 09/12/22 13:50 Sputum, Induced/Lukens Respiratory Culture - Final Mixed normal respiratory dejah. No Streptococcus pneumoniae, beta-hemolytic Streptococcus or Staphylococcus aureus isolated. Rhythm Strip Rhythm Strip: Sinus Tach Rate: 112 Ectopy: None Physical Exam Const Constitutional Narrative: intubated, sedated, RASS score is -4. HEENT normocephalic and head/scalp atraumatic Eyes PERRL, EOMs intact bilaterally and conjunctivae normal Neck supple, no JVD and no carotid bruits Lymph Lymphatic: no lymphadenopathy noted Resp Resp Narrative: intubated, sedated, diminished breath sounds bibasally, no wheezes or crackles. Cardio regular rate, regular rhythm, S1 normal heart sound, S2 normal heart sound, no murmurs and no rub GI normal to inspection, nondistended, normoactive bowel sounds, soft to palpation, non-tender and non-distended Extremity normal capillary refill and no clubbing, cyanosis or edema Skin General Skin Exam: no breakdown Neuro Neuro Narrative: intubated, sedated, RASS score is -4 Psych Psych Narrative: Patient is sedated and on the ventilator Assessment & Plan Assessment/Plan (1) CHEVY (acute kidney injury): (2) Encephalopathy acute: (3) Recurrent seizures: (4) Alcoholic hepatitis: PLAN: Plan #Status epilepticus in setting of seizure disorder and exacerbated by alcohol dependence * currently intubated and sedated; on propofol, fentanyl and precedex drips. * -on IV Keppra and depakote. * critical care on board * seizure precautions * #Acute alcohol withdrawal * on precedex drip. Currently intubated and sedated * on thiamine, folic acid. * critical care on board * #Acute hypoxic respiratory failure due to PRobable aspiration pneumonia * on IV zosyn. sputum culture showing mixed normal respiratory dejah * remains intubated and sedated and continues to have a low grade fever * in cumulatieve positive balance by 4.5L * failed spontaneous breathing trial today * critical care on board * #CHEVY: resolved. #Elevated triglycerides * likely due to propofol. To consider stopping propofol if Triglycerides continue trending upwards * #GERD: on famotidine. #Nutrition: tube feeds were stopped yesterday due to high residuals. To resume tube feeds today DVT prophylaxis; heparin. Charges/Coding Visit Charges Inpatient E&M: 94963 Subs Hosp L3
[2022-09-16] MEDS: Propofol 10MG/Ml 1,000 MG/100 ML Bottle 21 MG CONT INF (10:14)
[2022-09-16] MEDS: TITRATION PARAMETER CHANGE 1 EACH IV (10:14)
[2022-09-16] MEDS: Famotidine 20 MG Tablet PO ×2 (11:14→22:06)
[2022-09-16] MEDS: Heparin Injection (Vial) 5,000 UNIT/ML VIAL 5000 UNIT SC ×2 (11:14→22:06)
[2022-09-16] MEDS: Senna/Docusate Sodium 1 Tablet 2 TABLET GT ×2 (11:14→22:05)
[2022-09-16] MEDS: QUEtiapine 25 MG Tablet 50 MG GT ×2 (11:15→22:05)
[2022-09-16] MEDS: Polyethylene Glycol 3350 17 GM PACKET GT (11:15)
[2022-09-16] MEDS: Acetaminophen 650 MG/20 ML UDC GT ×2 (11:16→23:57)
[2022-09-16] MEDS: CHLORHEXIDINE GLUC 2% CLOTH 1 EACH TOWELETTE TOPICAL (11:49)
--- NOTE | 2022-09-16 11:50 | NURSING ---
Fentanyl running at 200 mcg/hr for 0700 and 0800, unable to chart on MAR
[2022-09-16] MEDS: Dexmedetomidine 1,000 mcg in 0.9% NS 240 mL 33.4 MCG CONT INF ×2 (12:13→19:43)
[2022-09-16] MEDS: Vital AF 1.2 Cal Liquid 1,000 ML 20 ML GT (14:14)
--- NOTE | 2022-09-16 14:14 | CASEMGMT ---
JUAN JOSE CHOWDHURY Discharge Planning Assessment: Pt intubated/on ventilator and unable to participat in assessment. Family not at bedside at this time. Call placed to parents home phone number and pt's mother Jyoti answered call. JUAN JOSE CHOWDHURY introduced self and role at [facility], Pt's mother voiced understanding and is agreeable to participating in assessment. Care providers and demographics verified. [facility]: [facility] Insurance[facility] and possibly has VELMA Prescription Benefit: yes LNOK: mother Jyoti, father Aure Living Arrangements: Pt lives with his S.O. in a mobile home. Per pt's mother, pt is independent with all ADLs including self care and household tasks. Pt had been working until approximately 2.5 years ago when his seizures prohibited him from maintaining a job. Transportation: Pt had been driving self DME/HHC/SNF: none Plan: TBD Pt's mother very tearful during assessment, emotional support provided. States pt's father and brother will be in to see pt in the morning during weaning trial to assist as needed/able. Expressed concern that pt may be angry about being on ventilator. Answered questions regarding ventilator and weaning process. Will continue to follow and assist with care coordination and discharge needs as pt's needs become more clear. Moiz De Oliveira RN CM
--- NOTE | 2022-09-16 14:51 | CASEMGMT ---
[facility] called and requested update on pt, given at this time.
[2022-09-16] MEDS: Propofol 10MG/Ml 1,000 MG/100 ML Bottle 13.4 MG CONT INF (15:46)
[2022-09-16] MEDS: Propofol 10MG/Ml 1,000 MG/100 ML Bottle 16 MG CONT INF (21:46)
[2022-09-17] VITALS (35 sets, daily range): BP systolic 98–128; BP diastolic 60–88; PULSE 71–91; RESP 13–33; TEMP 37.3–38.3; O2SAT 90–98; BMI 27.6
[2022-09-17] MEDS: 0.9% Saline Lock 10 ML Syringe IV ×3 (00:20→23:22)
[2022-09-17] MEDS: Dexmedetomidine 1,000 mcg in 0.9% NS 240 mL 33.4 MCG CONT INF (03:15)
[2022-09-17] MEDS: Propofol 10MG/Ml 1,000 MG/100 ML Bottle 16 MG CONT INF (03:50)
[2022-09-17] MEDS: fentaNYL drip 100 ML 5 MCG CONT INF (04:55)
[2022-09-17] MEDS: CHLORHEXIDINE GLUC 2% CLOTH 1 EACH TOWELETTE TOPICAL (05:34)
--- NOTE | 2022-09-17 06:18 | NURSING ---
Propofol paused, fentanyl decreased for awakening trial. Patient did well and was able to remain calm throughout his SAT in order to be switched over to his breathing trial by respiratory therapist. After 10-15 minutes, patient began coughing on copious amounts of very thick secretions. Due to secretions and oxygen sats dropping to mid 80's despite many times of in-line suctioning, respiratory switched patient back to ACVC+ mode on the ventilator.
[2022-09-17 06:38] LABS: BUN 9 mg/dL (7-18); Glucose 90 mg/dL (74-106)
[2022-09-17 06:39] LABS: ALB/GLOB Ratio 0.5 RATIO (0.9-2.4); AST(SGOT) 13 U/L (15-37); Alanine Aminotransfer ALT/SGPT 12 U/L (16-61); Albumin, Serum 1.9 g/dL (3.2-5.0); Alkaline Phosphatase 47 U/L (45-117); Anion Gap 5 (5-15); BUN/Creat Ratio 12.5 RATIO (10-20); Calcium,Total 8.5 mg/dL (8.5-10.1); Chloride 108 mmol/L (98-107); Creatinine, Serum 0.72 mg/dL (0.70-1.30); EST Glomerular Filtration Rate 127 mL/min (>60); Est Glom Filt Rate - Afr Amer 154 mL/min (>60); Estimated Creatinine Clearance 142.35 ml/min; Globulin 4.1 g/dL (2.2-4.2); Magnesium 2.1 mg/dL (1.6-2.6); Potassium 3.7 mmol/L (3.5-5.1); Sodium Level 142 mmol/L (136-145)
[2022-09-17] MEDS: TITRATION PARAMETER CHANGE 1 EACH IV (06:55)
--- NOTE | 2022-09-17 07:03 | PCM.PN.INT ---
Assessment & Plan Assessment/Plan (1) Delirium tremens: PLAN: Plan RECOMMENDATIONS: 1. Continue current sedation regimen, including propofol, Precedex and fentanyl. 2. Continue scheduled Seroquel. 3. Continue assist-control mode of mechanical ventilation. Wean FiO2 for saturations greater than 90%. 4. Continue empiric antimicrobials. 5. Continue thiamine and folate. 6. Continue antiepileptics. 7. Continue appropriate GI and DVT prophylaxis. 8. Continue tube feeds as tolerated. IMPRESSIONS: 1. Acute respiratory failure Appears to be secondary to metabolic encephalopathy in the setting of delirium tremens. The patient appeared to be experiencing breakthrough seizure activity in the setting of medication noncompliance and is likely experiencing acute alcohol withdrawal symptoms as well. He was ultimately intubated in the emergency department. Plan to continue current supportive measures including a combination of propofol, Precedex and fentanyl for sedation. Given the basilar airspace disease noted on chest imaging and low-grade fevers, we will plan to continue empiric antimicrobials to complete 7 days of therapy. Plan to continue attempts at spontaneous awakening and breathing trials daily. 2. Status epilepticus The patient does have a history of an unspecified seizure disorder with subtherapeutic medication level suggesting outpatient noncompliance. Plan to continue current antiepileptic regimen along with as needed benzodiazepines and seizure precautions. 3. Acute kidney injury Resolved. Most likely prerenal in etiology. Creatinine has normalized with volume expansion. Continue to monitor urine output. No current indication for renal replacement therapy. 4. History of chronic alcohol dependency/chronic tobacco dependency/Pzcuk-Frlyppnyp-Drjiq syndrome Complicates care, management, recovery and prognosis. The patient completed a phenobarbital taper. Plan to continue aggressive bowel regimen and tube feeds as tolerated. TIME: 32 minutes of critical care time, independent of procedures, was spent addressing the patient's acute respiratory failure, status epilepticus, acute kidney injury, review of all data and collaboration with the care team. Subjective Subjective The patient was seen and examined at the bedside this morning. Events from the last 24 hours have been reviewed. The patient continues to have low-grade fevers but remains otherwise hemodynamically stable. This morning, the patient did relatively well with his spontaneous awakening trial. However, after being placed on a spontaneous breathing trial, the patient was noted to have significant endotracheal tube secretions and subsequent worsening in his hypoxemia. Therefore, his spontaneous breathing trial was terminated. He is currently documented to be overall net +5 L for the hospitalization. Objective Data Objective Data The patient's most recent lab work, culture data and imaging studies have all been personally reviewed. Sputum culture has not demonstrated any growth to date. Vital Signs: Vital Signs Temp Pulse Resp BP Pulse Ox O2 Del Method O2 Flow Rate 100.5 F H 86 14 128/81 H 94 Mechanical Ventilator 2 09/17/22 06:00 09/17/22 06:00 09/17/22 06:00 09/17/22 06:00 09/17/22 06:00 09/17/22 06:00 09/12/22 10:49 FiO2 90 09/17/22 06:00 Oxygen Flow Rate (L/min) 2 Oxygen Delivery Method Mechanical Ventilator Weight: 197 lb 1.492 oz Body Mass Index (BMI) 27.6 Intake & Output: Intake and Output for Last 24 Hours 09/15/22 09/16/22 09/17/22 23:59 23:59 23:59 Intake Total 3184.40 / 3247.80 2763.9033 / 2844.9733 1019.35 / 1019.35 Output Total 3100 / 3650 2350 / 2850 1300 / 1300 Balance 84.40 / -402.20 413.9033 / -5.0267 -280.65 / -280.65 Lab / Micro Data Attestation: I reviewed the patient's lab results. 09/17/22 03:55 09/17/22 03:45 Labs: Laboratory Results - last 24 hr 09/17/22 03:45: Sodium 142, Potassium 3.7, Chloride 108 H, Carbon Dioxide 29.0, Anion Gap 5, BUN 9, Creatinine 0.72, Estim Creat Clear Calc 142.35, Est GFR (MDRD) Af Amer 154, Est GFR (MDRD) Non-Af 127, BUN/Creatinine Ratio 12.5, Glucose 90, Calcium 8.5, Phosphorus 2.0 L, Magnesium 2.1, Total Bilirubin 0.40, AST 13 L, ALT 12 L, Alkaline Phosphatase 47, Total Protein 6.0 L, Albumin 1.9 L, Globulin 4.1, Albumin/Globulin Ratio 0.5 L Micro: Microbiology 09/12/22 13:50 Sputum, Induced/Lukens Gram Stain - Final 09/12/22 13:50 Sputum, Induced/Lukens Respiratory Culture - Final Mixed normal respiratory dejah. No Streptococcus pneumoniae, beta-hemolytic Streptococcus or Staphylococcus aureus isolated. Radiography Diagnostic Testing: Radiology Impression Chest X-Ray 09/14/22 16:10 IMPRESSION: Mild right lower lobe atelectasis or infiltrate. Status post intubation. Electronically Signed: Ruben Davis MD at 17:06 EDT , Chest X-Ray 09/15/22 05:55 IMPRESSION: 1. Bilateral basilar atelectasis and/or infiltration, right greater than left. There is interval worsening from yesterday''s study. 2. Tubes are in adequate position. Electronically Signed: Colton Lainez MD at 5:29 EDT , Rhythm Strip Rhythm Strip: Sinus Tach Rate: 112 Ectopy: None Physical Exam Const Constitutional Narrative: Intubated, sedated and mechanically ventilated. No ventilator dyssynchrony noted. HEENT normocephalic and head/scalp atraumatic Mouth: endotracheal tube in place and OG tube in place Eyes PERRL and EOMs intact bilaterally Neck supple General: trachea midline Chest inspection of chest normal Resp Auscultation: rhonchi; Negative for rales or wheezes Cardio regular rate, regular rhythm, S1 normal heart sound and S2 normal heart sound GI normal to inspection, nondistended, normoactive bowel sounds Extremity no clubbing, cyanosis or edema Skin no rashes or lesions noted Neuro Neuro Narrative: Intermittently agitated and restless. Sensorium / Orientation: sedated on vent Charges/Coding Procedures Hospitalists Procedures: 22221 Critial Care 1st Hr
[2022-09-17 07:54] LABS: Absolute Lymphocyte Count 0.55 X10^3/uL (0.83-4.51); Absolute Neutrophil Count 4.9 X10^3/uL (2.0-7.7); Basophil# 0.03 X10^3/uL; Basophil% 0.5 % (0-1); Eosinophil# 0.18 X10^3/uL; Eosinophils% 2.8 % (0-5); Hematocrit 40.8 % (40-54); Hemoglobin 13.2 g/dL (13.0-16.5); Lymphocyte # 0.55 X10^3/ul (0.83-4.51); Lymphocyte % 8.6 % (19-41); Mean Corp Hgb Conc 32.4 g/dL (32-36); Mean Corpuscular Hgb 30.1 pg (27.0-32.0); Mean Corpuscular Volume 92.9 fL (80-94); Mean Platelet Vol. 11.4 fl (6.2-12.0); Monocyte# 0.71 X10^3/uL; Monocyte% 11.1 % (0-10); NRBC Flagged by Analyzer 0 % (0-5); Neutrophil # 4.89 X10^3/uL (2.7-7.7); Neutrophil % 76.4 % (47-70); POSITIVE COUNT YES; POSITIVE DIFFERENTIAL YES; Platelet Count 93 K/mm3 (150-450); RBC Distribution Width CV 13.1 % (11.6-14.6); RBC Distribution Width SD 44.8 fl (35.1-43.9); Red Blood Count 4.39 M/mm3 (4.6-6.2); White Blood Count 6.4 K/mm3 (4.4-11.0)
[2022-09-17] MEDS: Propofol 10MG/Ml 1,000 MG/100 ML Bottle 21.5 MG CONT INF (07:57)
[2022-09-17] MEDS: Folic Acid 1 MG Tablet GT (07:57)
[2022-09-17] MEDS: Thiamine Hydrochloride 100 MG Tablet GT (07:57)
[2022-09-17 08:03] LABS: Differential Indicated SCAN CRITERIA MET; Platelet Estimate MOD DEC (ADEQ)
[2022-09-17] MEDS: Chlorhexidine 15 ML PO ×2 (08:03→21:29)
--- NOTE | 2022-09-17 09:52 | PN_ITS ---
Subjective Subjective Patient seen and examined. HE failed his breathing trial again today so couldnt be extubated. He is noted to have some right eye periorbital edema and some discharge from his right eye. He remains intubated and sedated. hE was also noted to be having increased thick secretions from his ET tube. Objective Data Objective Data Vital Signs: Vital Signs Temp Pulse Resp BP Pulse Ox O2 Del Method O2 Flow Rate 100.9 F H 81 14 105/60 98 Mechanical Ventilator 2 09/17/22 09:00 09/17/22 09:00 09/17/22 09:00 09/17/22 09:00 09/17/22 09:00 09/17/22 09:00 09/12/22 10:49 FiO2 80 09/17/22 09:00 Oxygen Flow Rate (L/min) 2 Oxygen Delivery Method Mechanical Ventilator Weight: 197 lb 1.492 oz Body Mass Index (BMI) 27.6 Intake & Output: Intake and Output for Last 24 Hours 09/15/22 09/16/22 09/17/22 23:59 23:59 23:59 Intake Total 3184.40 / 3247.80 2763.9033 / 2844.9733 1182.79 / 1182.79 Output Total 3100 / 3650 2350 / 2850 1400 / 1400 Balance 84.40 / -402.20 413.9033 / -5.0267 -217.21 / -217.21 Lab / Micro Data 09/17/22 03:55 09/17/22 03:45 Labs: Laboratory Results - last 24 hr 09/17/22 03:45: Sodium 142, Potassium 3.7, Chloride 108 H, Carbon Dioxide 29.0, Anion Gap 5, BUN 9, Creatinine 0.72, Estim Creat Clear Calc 142.35, Est GFR (MDRD) Af Amer 154, Est GFR (MDRD) Non-Af 127, BUN/Creatinine Ratio 12.5, Glucose 90, Calcium 8.5, Phosphorus 2.0 L, Magnesium 2.1, Total Bilirubin 0.40, AST 13 L, ALT 12 L, Alkaline Phosphatase 47, Total Protein 6.0 L, Albumin 1.9 L, Globulin 4.1, Albumin/Globulin Ratio 0.5 L 09/17/22 03:55: WBC 6.4, RBC 4.39 L, Hgb 13.2, Hct 40.8, MCV 92.9, MCH 30.1, MCHC 32.4, RDW Std Deviation 44.8 H, RDW Coeff of Carmine 13.1, Plt Count 93 L, MPV 11.4, Immature Gran % (Auto) 0.600, Neut % (Auto) 76.4 H, Lymph % (Auto) 8.6 L, [place] % (Auto) 11.1 H, Eos % (Auto) 2.8, Baso % (Auto) 0.5, Absolute Neuts (auto) 4.9, Absolute Lymphs (auto) 0.55 L, Nucleated RBC % 0, Differential Comment , Platelet Estimate MOD JAN Micro: Microbiology 09/12/22 13:50 Sputum, Induced/Lukens Gram Stain - Final 09/12/22 13:50 Sputum, Induced/Lukens Respiratory Culture - Final Mixed normal respiratory dejah. No Streptococcus pneumoniae, beta-hemolytic Streptococcus or Staphylococcus aureus isolated. Rhythm Strip Rhythm Strip: Sinus Tach Rate: 112 Ectopy: None Physical Exam Const Constitutional Narrative: intubated, sedated, RASS score is -4. HEENT normocephalic and head/scalp atraumatic Eyes PERRL and EOMs intact bilaterally Eyes Narrative: has mild right eye periorbital edema, with some creamy discharge and mild erythema Neck supple, no JVD and no carotid bruits Lymph Lymphatic: no lymphadenopathy noted Resp Resp Narrative: intubated, sedated, diminished breath sounds bibasally, no wheezes or crackles. Cardio regular rate, regular rhythm, S1 normal heart sound, S2 normal heart sound, no murmurs and no rub GI normal to inspection, nondistended, normoactive bowel sounds, soft to palpation, non-tender and non-distended Extremity normal capillary refill and no clubbing, cyanosis or edema Skin General Skin Exam: no breakdown Neuro Neuro Narrative: intubated, sedated, RASS score is -4 Psych Psych Narrative: Patient is sedated and on the ventilator Assessment & Plan Assessment/Plan (1) CHEVY (acute kidney injury): (2) Encephalopathy acute: (3) Recurrent seizures: (4) Alcoholic hepatitis: PLAN: Plan #Status epilepticus in setting of seizure disorder and exacerbated by alcohol dependence * currently intubated and sedated; on propofol, fentanyl and precedex drips. * on IV Keppra and depakote. * critical care on board * seizure precautions * #Acute alcohol withdrawal * on precedex drip. remains intubated and sedated * on thiamine, folic acid. * critical care on board * #Acute hypoxic respiratory failure due to PRobable aspiration pneumonia * on IV zosyn. sputum culture showing mixed normal respiratory dejah * remains intubated and sedated and continues to have a low grade fever * failed spontaneous breathing trial again today * critical care on board * #RIght eye bacterial conjuctivitis * has periorbital right eye swelling, with discharge from the right eye. * start on ciprofloxacin eye drops * #CHEVY: resolved. #Elevated triglycerides * likely due to propofol. To consider stopping propofol if Triglycerides continue trending upwards * #GERD: on famotidine. #Nutrition: tube feeds were stopped yesterday due to high residuals. Tube feeds resumed DVT prophylaxis; heparin. Charges/Coding Visit Charges Inpatient E&M: 29451 Subs Hosp L3
[2022-09-17] MEDS: Famotidine 20 MG Tablet PO ×2 (10:01→21:30)
[2022-09-17] MEDS: Heparin Injection (Vial) 5,000 UNIT/ML VIAL 5000 UNIT SC ×2 (10:01→21:30)
[2022-09-17] MEDS: QUEtiapine 25 MG Tablet 50 MG GT ×2 (10:01→21:30)
[2022-09-17] MEDS: Senna/Docusate Sodium 1 Tablet 2 TABLET GT ×2 (10:01→21:30)
[2022-09-17] MEDS: Polyethylene Glycol 3350 17 GM PACKET GT (10:02)
[2022-09-17] MEDS: Acetaminophen 650 MG/20 ML UDC GT (10:13)
[2022-09-17] MEDS: fentaNYL drip 100 ML 20 MCG CONT INF ×3 (10:55→21:35)
[2022-09-17] MEDS: Ciprofloxacin 0.3% 2.5ml Bottle 2 DRP RIGHT EYE ×4 (11:23→21:30)
[2022-09-17] MEDS: Dexmedetomidine 1,000 mcg in 0.9% NS 240 mL 33.5 MCG CONT INF ×2 (11:47→19:15)
[2022-09-17] MEDS: Propofol 10MG/Ml 1,000 MG/100 ML Bottle 18.8 MG CONT INF (13:18)
[2022-09-17] MEDS: Vital AF 1.2 Cal Liquid 1,000 ML 20 ML GT (16:28)
[2022-09-17] MEDS: Propofol 10MG/Ml 1,000 MG/100 ML Bottle 16.1 MG CONT INF (17:46)
--- NOTE | 2022-09-17 18:30 | NURSING ---
This RN titrated pt propofol down to 25 at 1814. Pt following commands at 1819, 1824 pt attempting to sit upright in bed and reaching for tubes, RASS 2+. Titrated back up to 30. 1844: RASS -1.
[2022-09-17] MEDS: Propofol 10MG/Ml 1,000 MG/100 ML Bottle 26.8 MG CONT INF (22:25)
[2022-09-17] MEDS: LORazepam 2 MG/ML Syringe IV (23:21)
--- NOTE | 2022-09-17 23:43 | NURSING ---
Upon entering the room, found patient's centeno removed. Patient ripped off balloon access port which caused the tension balloon to deflate. Tension balloon intact, balloon just deflated. Replaced with new centeno.
[2022-09-18] VITALS (33 sets, daily range): BP systolic 92–159; BP diastolic 64–113; PULSE 79–123; RESP 12–43; TEMP 37.8–38.8; O2SAT 88–100; BMI 27.8
[2022-09-18] MEDS: Propofol 10MG/Ml 1,000 MG/100 ML Bottle 26.8 MG CONT INF (01:30)
[2022-09-18] MEDS: CHLORHEXIDINE GLUC 2% CLOTH 1 EACH TOWELETTE TOPICAL (01:42)
[2022-09-18] MEDS: Dexmedetomidine 1,000 mcg in 0.9% NS 240 mL 33.5 MCG CONT INF (03:00)
[2022-09-18] MEDS: fentaNYL drip 100 ML 20 MCG CONT INF (03:00)
[2022-09-18] MEDS: Ciprofloxacin 0.3% 2.5ml Bottle 2 DRP RIGHT EYE ×6 (03:14→21:32)
[2022-09-18 03:44] LABS: Absolute Lymphocyte Count 0.69 X10^3/uL (0.83-4.51); Absolute Neutrophil Count 3.3 X10^3/uL (2.0-7.7); Basophil# 0.05 X10^3/uL; Eosinophil# 0.25 X10^3/uL; Eosinophils% 4.8 % (0-5); Hematocrit 38.9 % (40-54); Hemoglobin 12.4 g/dL (13.0-16.5); Lymphocyte # 0.69 X10^3/ul (0.83-4.51); Lymphocyte % 13.1 % (19-41); Mean Corp Hgb Conc 31.9 g/dL (32-36); Mean Corpuscular Hgb 29.7 pg (27.0-32.0); Mean Corpuscular Volume 93.3 fL (80-94); Mean Platelet Vol. 11.2 fl (6.2-12.0); Monocyte# 0.79 X10^3/uL; NRBC Flagged by Analyzer 0 % (0-5); Neutrophil # 3.34 X10^3/uL (2.7-7.7); Neutrophil % 63.6 % (47-70); Platelet Count 110 K/mm3 (150-450); RBC Distribution Width CV 13.2 % (11.6-14.6); RBC Distribution Width SD 45.3 fl (35.1-43.9); Red Blood Count 4.17 M/mm3 (4.6-6.2); White Blood Count 5.3 K/mm3 (4.4-11.0)
[2022-09-18 03:56] LABS: ALB/GLOB Ratio 0.4 RATIO (0.9-2.4); AST(SGOT) 14 U/L (15-37); Alanine Aminotransfer ALT/SGPT 13 U/L (16-61); Albumin, Serum 1.7 g/dL (3.2-5.0); Alkaline Phosphatase 47 U/L (45-117); Anion Gap 6 (5-15); BUN 10 mg/dL (7-18); BUN/Creat Ratio 14.8 RATIO (10-20); Calcium,Total 7.8 mg/dL (8.5-10.1); Chloride 108 mmol/L (98-107); Creatinine, Serum 0.68 mg/dL (0.70-1.30); EST Glomerular Filtration Rate 137 mL/min (>60); Est Glom Filt Rate - Afr Amer 165 mL/min (>60); Estimated Creatinine Clearance 150.72 ml/min; Globulin 3.9 g/dL (2.2-4.2); Glucose 106 mg/dL (74-106); Magnesium 2.1 mg/dL (1.6-2.6); Phosphorus 2.2 mg/dL (2.5-4.9); Potassium 3.6 mmol/L (3.5-5.1); Protein, Total 5.6 g/dL (6.4-8.2); Sodium Level 143 mmol/L (136-145)
[2022-09-18] MEDS: 0.9% Saline Lock 10 ML Syringe IV ×4 (05:45→21:44)
[2022-09-18] MEDS: TITRATION PARAMETER CHANGE 1 EACH IV (05:46)
--- NOTE | 2022-09-18 06:46 | PN.CC_ITS ---
Assessment & Plan Assessment/Plan (1) Delirium tremens: PLAN: Plan RECOMMENDATIONS: 1. Continue current sedation regimen, including propofol, Precedex and fentanyl. Recheck triglycerides today. 2. Continue scheduled Seroquel. 3. Continue assist-control mode of mechanical ventilation. Wean FiO2 for saturations greater than 90%. 4. Continue empiric antimicrobials to complete 7 days of therapy. 5. Continue thiamine and folate. 6. Continue antiepileptics. 7. Continue appropriate GI and DVT prophylaxis. 8. Continue tube feeds as tolerated. IMPRESSIONS: 1. Acute respiratory failure Appears to be secondary to metabolic encephalopathy in the setting of delirium tremens. The patient appeared to be experiencing breakthrough seizure activity in the setting of medication noncompliance and is likely experiencing acute al cohol withdrawal symptoms as well. He was ultimately intubated in the emergency department. Plan to continue current supportive measures including a combination of propofol, Precedex and fentanyl for sedation. Given the basilar airspace disease noted on chest imaging and low-grade fevers, we will plan to continue empiric antimicrobials to complete 7 days of therapy. Plan to continue attempts at spontaneous awakening and breathing trials daily. The patient significant amount of secretions continue to be a hindrance in his ability to be liberated from invasive mechanical ventilatory support. 2. Status epilepticus The patient does have a history of an unspecified seizure disorder with subtherapeutic medication level suggesting outpatient noncompliance. Plan to continue current antiepileptic regimen along with as needed benzodiazepines and seizure precautions. 3. Acute kidney injury Resolved. Most likely prerenal in etiology. Creatinine has normalized with volume expansion. Continue to monitor urine output. No current indication for renal replacement therapy. 4. History of chronic alcohol dependency/chronic tobacco dependency/Yocag-Eymvwobck-Ojpew syndrome Complicates care, management, recovery and prognosis. The patient completed a phenobarbital taper. Plan to continue aggressive bowel regimen and tube feeds as tolerated. TIME: 33 minutes of critical care time, independent of procedures, was spent addressing the patient's acute respiratory failure, status epilepticus, acute kidney injury, review of all data and collaboration with the care team. Subjective Subjective The patient was seen and examined at the bedside this morning. Events from the last 24 hours have been reviewed. The patient remains febrile, with a temperature of this morning noted to be 101.1 ?F. He remains otherwise hemodynamically stable. The patient failed his spontaneous breathing trial once again this morning. He continues to have significant secretion output. His FiO2 prior to the initiation of his breathing trial was 35%. His FiO2 requirement had to be increased to 80% as a consequence of his spontaneous breathing trial. The patient is documented to be overall net +6.2 L for the hospitalization. He is currently tolerating tube feeds. Objective Data Objective Data The patient's most recent lab work, culture data and imaging studies have all been personally reviewed. Sputum culture has not demonstrated any growth to date. Vital Signs: Vital Signs Temp Pulse Resp BP Pulse Ox O2 Del Method O2 Flow Rate 101.1 F H 97 17 121/88 H 95 Mechanical Ventilator 2 09/18/22 06:00 09/18/22 06:00 09/18/22 06:00 09/18/22 06:00 09/18/22 06:00 09/18/22 06:00 09/12/22 10:49 FiO2 80 09/18/22 06:00 Oxygen Flow Rate (L/min) 2 Oxygen Delivery Method Mechanical Ventilator Weight: 198 lb 10.184 oz Body Mass Index (BMI) 27.8 Intake & Output: Intake and Output for Last 24 Hours 09/16/22 09/17/22 09/18/22 23:59 23:59 23:59 Intake Total 2763.9033 / 2844.9733 3389.16 / 3469.46 852.49 / 852.49 Output Total 2350 / 2850 2685 / 2685 600 / 600 Balance 413.9033 / -5.0267 704.16 / 784.46 252.49 / 252.49 Lab / Micro Data Attestation: I reviewed the patient's lab results. 09/18/22 03:23 09/18/22 03:23 Labs: Laboratory Results - last 24 hr 09/17/22 03:45: Sodium 142, Potassium 3.7, Chloride 108 H, Carbon Dioxide 29.0, Anion Gap 5, BUN 9, Creatinine 0.72, Estim Creat Clear Calc 142.35, Est GFR (MDRD) Af Amer 154, Est GFR (MDRD) Non-Af 127, BUN/Creatinine Ratio 12.5, Glucose 90, Calcium 8.5, Phosphorus 2.0 L, Magnesium 2.1, Total Bilirubin 0.40, AST 13 L, ALT 12 L, Alkaline Phosphatase 47, Total Protein 6.0 L, Albumin 1.9 L, Globulin 4.1, Albumin/Globulin Ratio 0.5 L 09/17/22 03:55: WBC 6.4, RBC 4.39 L, Hgb 13.2, Hct 40.8, MCV 92.9, MCH 30.1, MCHC 32.4, RDW Std Deviation 44.8 H, RDW Coeff of Carmine 13.1, Plt Count 93 L, MPV 11.4, Immature Gran % (Auto) 0.600, Neut % (Auto) 76.4 H, Lymph % (Auto) 8.6 L, [place] % (Auto) 11.1 H, Eos % (Auto) 2.8, Baso % (Auto) 0.5, Absolute Neuts (auto) 4.9, Absolute Lymphs (auto) 0.55 L, Nucleated RBC % 0, Differential Comment , Platelet Estimate MOD 09/18/22 03:23: WBC 5.3, RBC 4.17 L, Hgb 12.4 L, Hct 38.9 L, MCV 93.3, MCH 29.7, MCHC 31.9 L, RDW Std Deviation 45.3 H, RDW Coeff of Carmine 13.2, Plt Count 110 L, MPV 11.2, Immature Gran % (Auto) 2.500 H, Neut % (Auto) 63.6, Lymph % (Auto) 13.1 L, [place] % (Auto) 15.0 H, Eos % (Auto) 4.8, Baso % (Auto) 1.0, Absolute Neuts (auto) 3.3, Absolute Lymphs (auto) 0.69 L, Nucleated RBC % 0, Sodium 143, Potassium 3.6, Chloride 108 H, Carbon Dioxide 29.0, Anion Gap 6, BUN 10, Creatinine 0.68 L, Estim Creat Clear Calc 150.72, Est GFR (MDRD) Af Amer 165, Est GFR (MDRD) Non-Af 137, BUN/Creatinine Ratio 14.8, Glucose 106, Calcium 7.8 L , Phosphorus 2.2 L, Magnesium 2.1, Total Bilirubin 0.30, AST 14 L, ALT 13 L, Alkaline Phosphatase 47, Total Protein 5.6 L, Albumin 1.7 L, Globulin 3.9, Albumin/Globulin Ratio 0.4 L Micro: Microbiology 09/12/22 13:50 Sputum, Induced/Lukens Gram Stain - Final 09/12/22 13:50 Sputum, Induced/Lukens Respiratory Culture - Final Mixed normal respiratory dejah. No Streptococcus pneumoniae, beta-hemolytic Streptococcus or Staphylococcus aureus isolated. Radiography Diagnostic Testing: Radiology Impression Chest X-Ray 09/14/22 16:10 IMPRESSION: Mild right lower lobe atelectasis or infiltrate. Status post intubation. Electronically Signed: Ruben Davis MD at 17:06 EDT , Chest X-Ray 09/15/22 05:55 IMPRESSION: 1. Bilateral basilar atelectasis and/or infiltration, right greater than left. There is interval worsening from yesterday''s study. 2. Tubes are in adequate position. Electronically Signed: Colton Lainez MD at 5:29 EDT , Rhythm Strip Rhythm Strip: Sinus Tach Rate: 112 Ectopy: None Physical Exam Const Constitutional Narrative: Intubated, sedated and mechanically ventilated. No ventilator dyssynchrony noted. HEENT normocephalic and head/scalp atraumatic Mouth: endotracheal tube in place and OG tube in place Eyes PERRL and EOMs intact bilaterally Neck supple General: trachea midline Chest inspection of chest normal Resp Auscultation: rhonchi; Negative for rales or wheezes Cardio regular rate, regular rhythm, S1 normal heart sound and S2 normal heart sound GI normal to inspection, nondistended, normoactive bowel sounds Extremity no clubbing, cyanosis or edema Skin no rashes or lesions noted Neuro Neuro Narrative: Intermittently agitated and restless. Sensorium / Orientation: sedated on vent Charges/Coding Procedures Hospitalists Procedures: 32391 Critial Care 1st Hr
[2022-09-18 07:23] LABS: Triglycerides 320 mg/dL
[2022-09-18] MEDS: Furosemide 40 MG/4 ML Vial IV (07:23)
[2022-09-18] MEDS: Acetaminophen 650 MG/20 ML UDC GT (07:23)
[2022-09-18] MEDS: Propofol 10MG/Ml 1,000 MG/100 ML Bottle 27 MG CONT INF (07:36)
[2022-09-18] MEDS: Heparin Injection (Vial) 5,000 UNIT/ML VIAL 5000 UNIT SC ×2 (08:09→21:32)
[2022-09-18] MEDS: Thiamine Hydrochloride 100 MG Tablet GT (08:09)
[2022-09-18] MEDS: Folic Acid 1 MG Tablet GT (08:09)
[2022-09-18] MEDS: Chlorhexidine 15 ML PO ×2 (08:09→21:44)
[2022-09-18] MEDS: Senna/Docusate Sodium 1 Tablet 2 TABLET GT (08:10)
[2022-09-18] MEDS: Famotidine 20 MG Tablet PO (08:10)
[2022-09-18] MEDS: Polyethylene Glycol 3350 17 GM PACKET GT (08:10)
[2022-09-18] MEDS: QUEtiapine 25 MG Tablet 50 MG GT ×2 (08:10→21:39)
[2022-09-18] MEDS: Ondansetron 4 MG/2 ML Vial IV (10:15)
--- NOTE | 2022-09-18 10:33 | NURSING ---
Pt's wallet given to pt's father.
--- NOTE | 2022-09-18 12:19 | PN_ITS ---
Subjective Subjective Patient seen and examined. He remains intubated and sedated. He still having increased secretions and feels this spontaneous breathing trial again this morning. Unable to do review of systems is otherwise negative. Patient was subsequently extubated to 6L of oxygen this afternoon. Objective Data Objective Data Vital Signs: Vital Signs Temp Pulse Resp BP Pulse Ox O2 Del Method O2 Flow Rate 101.2 F H 92 20 H 124/80 H 95 Nasal Cannula 4 09/18/22 10:00 09/18/22 10:40 09/18/22 10:40 09/18/22 10:00 09/18/22 10:40 09/18/22 10:40 09/18/22 10:40 FiO2 40 09/18/22 10:00 Oxygen Flow Rate (L/min) 4 Oxygen Delivery Method Nasal Cannula Weight: 198 lb 10.184 oz Body Mass Index (BMI) 27.8 Intake & Output: Intake and Output for Last 24 Hours 09/16/22 09/17/22 09/18/22 23:59 23:59 23:59 Intake Total 2763.9033 / 2844.9733 3389.16 / 3469.46 1483.14 / 1483.14 Output Total 2350 / 2850 2685 / 2685 600 / 600 Balance 413.9033 / -5.0267 704.16 / 784.46 883.14 / 883.14 Lab / Micro Data 09/18/22 03:23 09/18/22 03:23 Labs: Laboratory Results - last 24 hr 09/18/22 03:23: WBC 5.3, RBC 4.17 L, Hgb 12.4 L, Hct 38.9 L, MCV 93.3, MCH 29.7, MCHC 31.9 L, RDW Std Deviation 45.3 H, RDW Coeff of Carmine 13.2, Plt Count 110 L, MPV 11.2, Immature Gran % (Auto) 2.500 H, Neut % (Auto) 63.6, Lymph % (Auto) 13.1 L, [place] % (Auto) 15.0 H, Eos % (Auto) 4.8, Baso % (Auto) 1.0, Absolute Neuts (auto) 3.3, Absolute Lymphs (auto) 0.69 L, Nucleated RBC % 0, Sodium 143, Potassium 3.6, Chloride 108 H, Carbon Dioxide 29.0, Anion Gap 6, BUN 10, Creatinine 0.68 L, Estim Creat Clear Calc 150.72, Est GFR (MDRD) Af Amer 165, Est GFR (MDRD) Non-Af 137, BUN/Creatinine Ratio 14.8, Glucose 106, Calcium 7.8 L , Phosphorus 2.2 L, Magnesium 2.1, Total Bilirubin 0.30, AST 14 L, ALT 13 L, Alkaline Phosphatase 47, Total Protein 5.6 L, Albumin 1.7 L, Globulin 3.9, Albumin/Globulin Ratio 0.4 L 09/18/22 03:40: Triglycerides 320 H Micro: Microbiology 09/12/22 13:50 Sputum, Induced/Lukens Gram Stain - Final 09/12/22 13:50 Sputum, Induced/Lukens Respiratory Culture - Final Mixed normal respiratory dejah. No Streptococcus pneumoniae, beta-hemolytic Streptococcus or Staphylococcus aureus isolated. Rhythm Strip Rhythm Strip: Sinus Tach Rate: 112 Ectopy: None Physical Exam Const average body habitus Constitutional Narrative: intubated, sedated, RASS score is -4. HEENT normocephalic and head/scalp atraumatic Eyes PERRL, EOMs intact bilaterally and conjunctivae normal Eyes Narrative: has mild right eye periorbital edema, with some creamy discharge and mild erythema Neck supple, no JVD and no carotid bruits Lymph Lymphatic: no lymphadenopathy noted Resp normal respiratory effort, no retractions, no use of accessory muscles and clear to auscultation bilaterally Resp Narrative: intubated, sedated, diminished breath sounds bibasally, no wheezes or crackles. Cardio regular rate, regular rhythm, S1 normal heart sound, S2 normal heart sound, no murmurs and no rub GI normal to inspection, nondistended, normoactive bowel sounds, soft to palpation, non-tender and non-distended Extremity normal capillary refill and no clubbing, cyanosis or edema Skin General Skin Exam: no breakdown Neuro Neuro Narrative: intubated, sedated, RASS score is -4 Psych Psych Narrative: Patient is sedated and on the ventilator Assessment & Plan Assessment/Plan (1) CHEVY (acute kidney injury): (2) Encephalopathy acute: (3) Recurrent seizures: (4) Alcoholic hepatitis: PLAN: Plan #Status epilepticus in setting of seizure disorder and exacerbated by alcohol dependence * currently intubated and sedated; on propofol, fentanyl and precedex drips. * on IV Keppra and depakote. * critical care on board * seizure precautions * #Acute alcohol withdrawal * on precedex drip. remains intubated and sedated * on thiamine, folic acid. * critical care on board * #Acute hypoxic respiratory failure due to PRobable aspiration pneumonia * on IV zosyn. sputum culture showing mixed normal respiratory dejah * remains intubated and sedated and continues to have a low grade fever * failed spontaneous breathing trial again today * critical care on board * #RIght eye bacterial conjuctivitis * has periorbital right eye swelling, with discharge from the right eye. * start on ciprofloxacin eye drops * #CHEVY: resolved. #Elevated triglycerides * likely due to propofol. To consider stopping propofol if Triglycerides continue trending upwards * #GERD: on famotidine. #Nutrition: tube feeds were stopped yesterday due to high residuals. Tube feeds resumed DVT prophylaxis; heparin.
[2022-09-18] MEDS: Acetaminophen 650 MG Suppository RC (15:07)
[2022-09-18 15:56] LABS: Allen Test Positive; Base Excess 6 mmol/L (-2 to +2); Bicarbonate 29.1 mmol/L (22-26); Blood Gas Specimen Type ART; O2 Delivery Device Cannula; PO2 62 mmHG (75-100); SITE R Radial; SO2 94 % (95-99); Total Carbon Dioxide 30 mmol/L; pCO2 36.1 mmHg (35-45); pH 7.52 (7.35-7.45)
--- NOTE | 2022-09-18 22:22 | PCM.HOSP.N ---
Hospitalist Note Family asking for referral to Dr. Guillen at discharge for neurology follow-up instead of having to travel to the [facility] for his underlying seizure disorder. Will relay to daytime team for discharge planning.
[2022-09-19] VITALS (19 sets, daily range): BP systolic 106–151; BP diastolic 83–99; PULSE 69–101; RESP 10–33; TEMP 36.7–37.9; O2SAT 90–99; BMI 26.2
[2022-09-19] MEDS: CHLORHEXIDINE GLUC 2% CLOTH 1 EACH TOWELETTE TOPICAL (00:29)
[2022-09-19] MEDS: Ciprofloxacin 0.3% 2.5ml Bottle 2 DRP RIGHT EYE ×6 (02:36→21:31)
[2022-09-19 03:28] LABS: Hematocrit 43.3 % (40-54); Hemoglobin 14.3 g/dL (13.0-16.5); Mean Corpuscular Hgb 30.2 pg (27.0-32.0); Mean Corpuscular Volume 91.5 fL (80-94); Mean Platelet Vol. 10.2 fl (6.2-12.0); POSITIVE COUNT YES; POSITIVE MORPHOLOGY YES; Platelet Count 153 K/mm3 (150-450); RBC Distribution Width CV 13.2 % (11.6-14.6); RBC Distribution Width SD 44.8 fl (35.1-43.9); Red Blood Count 4.73 M/mm3 (4.6-6.2); White Blood Count 7.8 K/mm3 (4.4-11.0)
[2022-09-19 03:30] LABS: Differential Indicated MANUAL DIFF
[2022-09-19 03:52] LABS: ALB/GLOB Ratio 0.5 RATIO (0.9-2.4); AST(SGOT) 30 U/L (15-37); Alanine Aminotransfer ALT/SGPT 18 U/L (16-61); Albumin, Serum 2.2 g/dL (3.2-5.0); Alkaline Phosphatase 60 U/L (45-117); Anion Gap 7 (5-15); BUN 11 mg/dL (7-18); BUN/Creat Ratio 16.7 RATIO (10-20); Calcium,Total 8.3 mg/dL (8.5-10.1); Chloride 107 mmol/L (98-107); Creatinine, Serum 0.66 mg/dL (0.70-1.30); EST Glomerular Filtration Rate 141 mL/min (>60); Est Glom Filt Rate - Afr Amer 170 mL/min (>60); Estimated Creatinine Clearance 155.29 ml/min; Globulin 4.3 g/dL (2.2-4.2); Glucose 100 mg/dL (74-106); Magnesium 2.2 mg/dL (1.6-2.6); Phosphorus 1.9 mg/dL (2.5-4.9); Potassium 3.4 mmol/L (3.5-5.1); Protein, Total 6.5 g/dL (6.4-8.2); Sodium Level 143 mmol/L (136-145)
[2022-09-19 04:25] LABS: Metamyelocyte 1 % (0-1); Neutrophil-Band 2 % (0-5); Total Cells Counted 100 (MANUAL DIFF)
[2022-09-19 04:26] LABS: Eosinophil 2 % (0-5); Lymphocyte 12 % (19-41); Monocyte 11 % (0-10); Myelocyte 3 % (0-0)
[2022-09-19 04:28] LABS: Absolute Lymphocyte Count 0.94 X10^3/uL (0.83-4.51); Absolute Neutrophil Count 5.6 X10^3/uL (2.0-7.7); Neutrophil-Segmented 69 % (47-70)
[2022-09-19 04:32] LABS: Platelet Estimate ADEQUATE (ADEQ); Platelet Morphology LARGE
[2022-09-19] MEDS: Menthol/Lanolin/Calamine/Znox 113 GM Tube 1 APPLIC TOPICAL ×3 (06:07→21:30)
[2022-09-19] MEDS: 0.9% Saline Lock 10 ML Syringe IV ×2 (06:08→13:13)
--- NOTE | 2022-09-19 06:12 | PCM.PN.INT ---
Assessment & Plan Assessment/Plan (1) Delirium tremens: PLAN: Plan RECOMMENDATIONS: 1. Wean supplemental oxygen to maintain saturations at or above 90%. 2. Continue empiric antimicrobials to complete 7 days of therapy. 3. Continue thiamine and folate. 4. Continue antiepileptics. 5. Continue appropriate DVT prophylaxis. 6. Encourage incentive spirometer use and mobilize patient as tolerated. 7. Electrolyte repletion as ordered. IMPRESSIONS: 1. Acute respiratory failure Appears to be secondary to metabolic encephalopathy in the setting of delirium tremens. The patient appeared to be experiencing breakthrough seizure activity in the setting of medication noncompliance and is likely experiencing acute alcohol withdrawal symptoms as well. He was ultimately intubated in the emergency department. With aggressive medical intervention including antimicrobials, the patient was able to be extubated on September 18. He is currently maintaining appropriate oxygen saturations on 4 L/min. Recommend continuing to wean oxygen as tolerated to maintain saturations at or above 90%. Continue antibiotics to complete 7 days of therapy. Encourage incentive spirometer use and mobilize patient as tolerated. 2. Status epilepticus The patient does have a history of an unspecified seizure disorder with subtherapeutic medication level suggesting outpatient noncompliance. Plan to continue current antiepileptic regimen along with as needed benzodiazepines and seizure precautions. 3. Acute kidney injury Resolved. Most likely prerenal in etiology. Creatinine has normalized with volume expansion. Continue to monitor urine output. No current indication for renal replacement therapy. 4. History of chronic alcohol dependency/chronic tobacco dependency/Fouug-Qrjihllzd-Xguap syndrome Complicates care, management, recovery and prognosis. The patient completed a phenobarbital taper. This note was generated with [employer] dictation software. It may contain incorrect words, spelling, and punctuation that were not noted in checking the note before signing. Subjective Subjective The patient was seen and examined at the bedside this morning. Events from the last 24 hours have been reviewed. The patient continues to have a low-grade fever but remains hemodynamically stable on 4 L/min via nasal cannula. The patient is documented to be overall net +5.4 L for the hospitalization. Potassium is low this morning at 3.4. Phosphorus remains low at 1.9. According to nursing report, the patient has been hallucinating overnight. Objective Data Objective Data The patient's most recent lab work, culture data and imaging studies have all been personally reviewed. Sputum culture has not demonstrated any growth to date. Vital Signs: Vital Signs Temp Pulse Resp BP Pulse Ox O2 Del Method O2 Flow Rate 99.7 F H 89 18 138/99 H 99 Nasal Cannula 4 09/19/22 05:00 09/19/22 06:00 09/19/22 06:00 09/19/22 06:00 09/19/22 06:00 09/19/22 06:00 09/19/22 05:17 FiO2 65 09/19/22 00:00 Oxygen Flow Rate (L/min) 4 Oxygen Delivery Method Nasal Cannula Weight: 187 lb 9.814 oz Body Mass Index (BMI) 26.2 Intake & Output: Intake and Output for Last 24 Hours 09/17/22 09/18/22 09/19/22 23:59 23:59 23:59 Intake Total 3389.16 / 3469.46 2156.4733 / 2156.4733 310 / 310 Output Total 2685 / 2685 2300 / 3050 750 / 750 Balance 704.16 / 784.46 -143.5267 / -893.5267 -440 / -440 Lab / Micro Data Attestation: I reviewed the patient's lab results. 09/19/22 03:20 09/19/22 03:20 Labs: Laboratory Results - last 24 hr 09/18/22 03:40: Triglycerides 320 H 09/19/22 03:20: WBC 7.8, RBC 4.73, Hgb 14.3, Hct 43.3, MCV 91.5, MCH 30.2, MCHC 33.0, RDW Std Deviation 44.8 H, RDW Coeff of Carmine 13.2, Plt Count 153, MPV 10.2, Neut % (Auto) Not Reportable, Absolute Neuts (auto) 5.6, Absolute Lymphs (auto) 0.94, Total Counted 100, Neutrophils % (Manual) 69, Band Neutrophils % 2, Lymphocytes % (Manual) 12 L, Monocytes % (Manual) 11 H, Eosinophils % (Manual) 2, Metamyelocytes % 1, Myelocytes % 3 H, Diff Path Review May foll, Platelet Estimate ADEQUATE, Plt Morphology Comment LARGE, Sodium 143, Potassium 3.4 L, Chloride 107, Carbon Dioxide 29.0, Anion Gap 7, BUN 11, Creatinine 0.66 L, Estim Creat Clear Calc 155.29, Est GFR (MDRD) Af Amer 170, Est GFR (MDRD) Non-Af 141, BUN/Creatinine Ratio 16.7, Glucose 100, Calcium 8.3 L, Phosphorus 1.9 L, Magnesium 2.2, Total Bilirubin 0.40, AST 30, ALT 18, Alkaline Phosphatase 60, Total Protein 6.5, Albumin 2.2 L, Globulin 4.3 H, Albumin/Globulin Ratio 0.5 L Micro: Microbiology 09/12/22 13:50 Sputum, Induced/Lukens Gram Stain - Final 09/12/22 13:50 Sputum, Induced/Lukens Respiratory Culture - Final Mixed normal respiratory dejah. No Streptococcus pneumoniae, beta-hemolytic Streptococcus or Staphylococcus aureus isolated. ABG Data ABG results: ABG 09/18/22 15:52 Specimen Type ART Sample Site R Radial pH 7.52 H Bicarbonate Actual 29.1 H Total CO2 30 Base Excess 6 H O2 Saturation 94 L ABG pCO2 36.1 ABG pO2 62 L Hayder Test Positive O2 Delivery Device Cannula Liter Flow 4.0 Radiography Diagnostic Testing: Radiology Impression Chest X-Ray 09/14/22 16:10 IMPRESSION: Mild right lower lobe atelectasis or infiltrate. Status post intubation. Electronically Signed: Ruben Davis MD at 17:06 EDT , Chest X-Ray 09/15/22 05:55 IMPRESSION: 1. Bilateral basilar atelectasis and/or infiltration, right greater than left. There is interval worsening from yesterday''s study. 2. Tubes are in adequate position. Electronically Signed: Colton Lainez MD at 5:29 EDT , Rhythm Strip Rhythm Strip: Sinus Tach Rate: 112 Ectopy: None Physical Exam Const alert and no apparent distress Orientation / Consciousness: confused and disoriented HEENT normocephalic and head/scalp atraumatic Eyes PERRL and EOMs intact bilaterally Neck supple General: trachea midline Chest inspection of chest normal Resp Auscultation: Negative for rales, rhonchi or wheezes Cardio regular rate, regular rhythm, S1 normal heart sound and S2 normal heart sound GI normal to inspection, nondistended, normoactive bowel sounds Extremity no clubbing, cyanosis or edema Skin no rashes or lesions noted Neuro moves all extremities and no focal motor deficits Psych Mood & Affect: flat affect Charges/Coding Visit Charges Inpatient E&M: 43757 Subs Hosp L3
[2022-09-19] MEDS: Potassium Chloride 10mEq/100mL 10 MEQ/100 ML IV.SOLN. 100 MEQ IV BOLUS ×4 (07:17→11:39)
[2022-09-19] MEDS: Folic Acid 1 MG Tablet GT (09:12)
[2022-09-19] MEDS: Thiamine Hydrochloride 100 MG Tablet GT (09:13)
[2022-09-19] MEDS: Heparin Injection (Vial) 5,000 UNIT/ML VIAL 5000 UNIT SC ×2 (09:14→21:32)
[2022-09-19] MEDS: Famotidine 20 MG Tablet PO ×2 (10:17→21:33)
--- NOTE | 2022-09-19 13:13 | PN_ITS ---
Subjective Subjective Patient seen and examined. He was extubated yesterday and is now on room air. He had no active complaints. He was quite lethargic but able to communicate. Review of systems otherwise negative. He has remained hemodynamically stable. Objective Data Objective Data Vital Signs: Vital Signs Temp Pulse Resp BP Pulse Ox O2 Del Method O2 Flow Rate 98.6 F 88 30 H 135/98 H 93 Room Air 2 09/19/22 12:39 09/19/22 12:39 09/19/22 12:39 09/19/22 12:39 09/19/22 12:39 09/19/22 12:39 09/19/22 10:00 FiO2 65 09/19/22 00:00 Oxygen Flow Rate (L/min) 2 Oxygen Delivery Method Room Air Weight: 187 lb 9.814 oz Body Mass Index (BMI) 26.2 Intake & Output: Intake and Output for Last 24 Hours 09/17/22 09/18/22 09/19/22 23:59 23:59 23:59 Intake Total 3389.16 / 3469.46 2156.4733 / 2156.4733 1370 / 1370 Output Total 2685 / 2685 2300 / 3050 1650 / 1650 Balance 704.16 / 784.46 -143.5267 / -893.5267 -280 / -280 Lab / Micro Data 09/19/22 03:20 09/19/22 03:20 Labs: Laboratory Results - last 24 hr 09/19/22 03:20: WBC 7.8, RBC 4.73, Hgb 14.3, Hct 43.3, MCV 91.5, MCH 30.2, MCHC 33.0, RDW Std Deviation 44.8 H, RDW Coeff of Carmine 13.2, Plt Count 153, MPV 10.2, Neut % (Auto) Not Reportable, Absolute Neuts (auto) 5.6, Absolute Lymphs (auto) 0.94, Total Counted 100, Neutrophils % (Manual) 69, Band Neutrophils % 2, Lymphocytes % (Manual) 12 L, Monocytes % (Manual) 11 H, Eosinophils % (Manual) 2, Metamyelocytes % 1, Myelocytes % 3 H, Diff Path Review May foll, Platelet Estimate ADEQUATE, Plt Morphology Comment LARGE, Sodium 143, Potassium 3.4 L, Chloride 107, Carbon Dioxide 29.0, Anion Gap 7, BUN 11, Creatinine 0.66 L, Estim Creat Clear Calc 155.29, Est GFR (MDRD) Af Amer 170, Est GFR (MDRD) Non-Af 141, BUN/Creatinine Ratio 16.7, Glucose 100, Calcium 8.3 L, Phosphorus 1.9 L, Magnesium 2.2, Total Bilirubin 0.40, AST 30, ALT 18, Alkaline Phosphatase 60, Total Protein 6.5, Albumin 2.2 L, Globulin 4.3 H, Albumin/Globulin Ratio 0.5 L Micro: Microbiology 09/12/22 13:50 Sputum, Induced/Lukens Gram Stain - Final 09/12/22 13:50 Sputum, Induced/Lukens Respiratory Culture - Final Mixed normal respiratory dejah. No Streptococcus pneumoniae, beta-hemolytic Streptococcus or Staphylococcus aureus isolated. ABG Data ABG results: ABG 09/18/22 15:52 Specimen Type ART Sample Site R Radial pH 7.52 H Bicarbonate Actual 29.1 H Total CO2 30 Base Excess 6 H O2 Saturation 94 L ABG pCO2 36.1 ABG pO2 62 L Hayder Test Positive O2 Delivery Device Cannula Liter Flow 4.0 Rhythm Strip Rhythm Strip: Sinus Tach Rate: 112 Ectopy: None Physical Exam Const alert and oriented x3 Orientation / Consciousness: lethargic HEENT normocephalic, head/scalp atraumatic and moist oral mucous membranes Eyes PERRL and EOMs intact bilaterally Eyes Narrative: right eye periorbital edema and discharge have resolved. Neck no lymphadenopathy, supple, no JVD and thyroid normal Lymph Lymphatic: no lymphadenopathy noted and no lymphedema noted Resp Resp Narrative: mildly diminished breath sounds bibasally, no wheezes or crackles. on room air. Cardio regular rate, regular rhythm, S1 normal heart sound, S2 normal heart sound and no murmurs GI normal to inspection, nondistended, normoactive bowel sounds, soft to palpation, non-tender and non-distended Extremity normal capillary refill and no clubbing, cyanosis or edema Skin General Skin Exam: no breakdown Neuro CN's II-XII intact bilaterally and no focal motor deficits Motor Exam: strength 5/5 throughout Psych Mood & Affect: flat affect Assessment & Plan Assessment/Plan (1) CHEVY (acute kidney injury): (2) Encephalopathy acute: (3) Recurrent seizures: (4) Alcoholic hepatitis: PLAN: Plan #Status epilepticus in setting of seizure disorder and exacerbated by alcohol dependence * resolved. was intubated on admission, now extubated. * on IV Keppra and depakote. * critical care on board * seizure precautions * #Acute alcohol withdrawal * now extubated, off precedex drip. * on thiamine, folic acid. * critical care on board * #Acute hypoxic respiratory failure due to PRobable aspiration pneumonia * on IV zosyn. sputum culture showing mixed normal respiratory dejah * now extubated and on room air. * critical care on board * continue antibiotics to complete 7 day course * #RIght eye bacterial conjuctivitis * largely resolved. On ciprofloxacin eye drops * #CHEVY: resolved. #Elevated triglycerides * resolving as patient is off propofol * #GERD: on famotidine. #Nutrition:now on oral diet. Tube feeds discontinued as he is extubated. DVT prophylaxis; heparin. Charges/Coding Visit Charges Inpatient E&M: 27201 Subs Hosp L2
[2022-09-20] VITALS (8 sets, daily range): BP systolic 120–144; BP diastolic 72–96; PULSE 62–94; RESP 12–24; TEMP 36.6–37.4; O2SAT 92–99; BMI 26.3
[2022-09-20] MEDS: Ciprofloxacin 0.3% 2.5ml Bottle 2 DRP RIGHT EYE ×6 (02:57→21:06)
[2022-09-20 03:12] LABS: Hematocrit 40.8 % (40-54); Mean Corp Hgb Conc 34.3 g/dL (32-36); Mean Corpuscular Hgb 30.9 pg (27.0-32.0); Mean Corpuscular Volume 90.1 fL (80-94); Mean Platelet Vol. 10.3 fl (6.2-12.0); POSITIVE COUNT YES; POSITIVE MORPHOLOGY YES; Platelet Count 168 K/mm3 (150-450); RBC Distribution Width SD 42.9 fl (35.1-43.9); Red Blood Count 4.53 M/mm3 (4.6-6.2); White Blood Count 8.4 K/mm3 (4.4-11.0)
[2022-09-20 03:21] LABS: Differential Indicated MANUAL DIFF
[2022-09-20 03:34] LABS: ALB/GLOB Ratio 0.6 RATIO (0.9-2.4); AST(SGOT) 39 U/L (15-37); Alanine Aminotransfer ALT/SGPT 27 U/L (16-61); Albumin, Serum 2.2 g/dL (3.2-5.0); Alkaline Phosphatase 54 U/L (45-117); Anion Gap 6 (5-15); BUN 12 mg/dL (7-18); BUN/Creat Ratio 19.5 RATIO (10-20); Calcium,Total 8.3 mg/dL (8.5-10.1); Chloride 110 mmol/L (98-107); Creatinine, Serum 0.62 mg/dL (0.70-1.30); EST Glomerular Filtration Rate 152 mL/min (>60); Est Glom Filt Rate - Afr Amer 184 mL/min (>60); Estimated Creatinine Clearance 165.31 ml/min; Globulin 3.9 g/dL (2.2-4.2); Glucose 108 mg/dL (74-106); Phosphorus 1.7 mg/dL (2.5-4.9); Potassium 3.8 mmol/L (3.5-5.1); Protein, Total 6.1 g/dL (6.4-8.2); Sodium Level 142 mmol/L (136-145)
[2022-09-20 04:15] LABS: Absolute Neutrophil Count 4.8 X10^3/uL (2.0-7.7); Basophil 1 % (0-1); Eosinophil 3 % (0-5); Lymphocyte 23 % (19-41); Metamyelocyte 3 % (0-1); Monocyte 16 % (0-10); Myelocyte 2 % (0-0); Neutrophil # 4.77 X10^3/uL (2.7-7.7); Neutrophil-Band 1 % (0-5); Neutrophil-Segmented 51 % (47-70); Total Cells Counted 100 (MANUAL DIFF)
[2022-09-20 04:16] LABS: Absolute Lymphocyte Count 1.92 X10^3/uL (0.83-4.51); Lymphocyte # 1.92 X10^3/ul (0.83-4.51); Platelet Estimate ADEQUATE (ADEQ)
[2022-09-20 04:17] LABS: Red Cell Morphology NORM C+C NORMAL (NORM C&C)
[2022-09-20] MEDS: Menthol/Lanolin/Calamine/Znox 113 GM Tube 1 APPLIC TOPICAL ×3 (05:40→22:17)
--- NOTE | 2022-09-20 06:19 | PCM.PN.INT ---
Assessment & Plan Assessment/Plan (1) Delirium tremens: PLAN: Plan RECOMMENDATIONS: 1. Supplemental oxygen, if needed, to maintain saturations at or above 90%. 2. Continue empiric antimicrobials to complete 7 days of therapy. 3. Continue thiamine and folate. 4. Continue antiepileptics. 5. Continue appropriate DVT prophylaxis. 6. Encourage incentive spirometer use and mobilize patient as tolerated. 7. We will sign off at this time from a critical care perspective. Please call with any additional questions. IMPRESSIONS: 1. Acute respiratory failure Appears to be secondary to metabolic encephalopathy in the setting of delirium tremens. The patient appeared to be experiencing breakthrough seizure activity in the setting of medication noncompliance and is likely experiencing acute alcohol withdrawal symptoms as well. He was ultimately intubated in the emergency department. With aggressive medical intervention including antimicrobials, the patient was able to be extubated on September 18. He is doing well from a respiratory perspective and maintaining appropriate oxygen saturations on room air. Continue antibiotics to complete 7 days of therapy. Encourage incentive spirometer use and mobilize patient as tolerated. 2. Status epilepticus The patient does have a history of an unspecified seizure disorder with subtherapeutic medication level suggesting outpatient noncompliance. Plan to continue current antiepileptic regimen along with as needed benzodiazepines and seizure precautions. 3. Acute kidney injury Resolved. Most likely prerenal in etiology. Creatinine has normalized with volume expansion. Continue to monitor urine output. No current indication for renal replacement therapy. 4. History of chronic alcohol dependency/chronic tobacco dependency/Kzhkx-Udvbdujvj-Jvyug syndrome Complicates care, management, recovery and prognosis. The patient completed a phenobarbital taper. This note was generated with [employer] dictation software. It may contain incorrect words, spelling, and punctuation that were not noted in checking the note before signing. Subjective Subjective The patient was seen and examined at the bedside this morning. Events from the last 24 hours have been reviewed. The patient is currently afebrile, hemodynamically stable and maintaining appropriate oxygen saturations on room air. The patient is documented to be overall net +5.5 L for the hospitalization. No overnight issues were identified by the nursing staff. Objective Data Objective Data The patient's most recent lab work, culture data and imaging studies have all been personally reviewed. Sputum culture has not demonstrated any growth to date. Vital Signs: Vital Signs Temp Pulse Resp BP Pulse Ox O2 Del Method O2 Flow Rate 98.0 F 62 24 H 142/96 H 92 Room Air 2 09/20/22 04:00 09/20/22 04:00 09/20/22 04:00 09/20/22 04:00 09/20/22 04:00 09/20/22 04:00 09/19/22 10:00 FiO2 65 09/19/22 00:00 Oxygen Flow Rate (L/min) 2 Oxygen Delivery Method Room Air Weight: 188 lb 14.978 oz Body Mass Index (BMI) 26.3 Intake & Output: Intake and Output for Last 24 Hours 09/18/22 09/19/22 09/20/22 23:59 23:59 23:59 Intake Total 2156.4733 / 2156.4733 3279.3333 / 3279.3333 171.25 / 171.25 Output Total 2300 / 3050 3150 / 3250 575 / 575 Balance -143.5267 / -893.5267 129.3333 / 29.3333 -403.75 / -403.75 Lab / Micro Data Attestation: I reviewed the patient's lab results. 09/20/22 03:00 09/20/22 03:00 Labs: Laboratory Results - last 24 hr 09/20/22 03:00: WBC 8.4, RBC 4.53 L, Hgb 14.0, Hct 40.8, MCV 90.1, MCH 30.9, MCHC 34.3, RDW Std Deviation 42.9, RDW Coeff of Carmine 13.0, Plt Count 168, MPV 10.3, Neut % (Auto) Not Reportable, Absolute Neuts (auto) 4.8, Absolute Lymphs (auto) 1.92, Total Counted 100, Neutrophils % (Manual) 51, Band Neutrophils % 1, Lymphocytes % (Manual) 23, Monocytes % (Manual) 16 H, Eosinophils % (Manual) 3, Basophils % (Manual) 1, Metamyelocytes % 3 H, Myelocytes % 2 H, Diff Path Review May foll, Platelet Estimate ADEQUATE, RBC Morphology NORM C+C, Sodium 142, Potassium 3.8, Chloride 110 H, Carbon Dioxide 26.0, Anion Gap 6, BUN 12, Creatinine 0.62 L, Estim Creat Clear Calc 165.31, Est GFR (MDRD) Af Amer 184, Est GFR (MDRD) Non-Af 152, BUN/Creatinine Ratio 19.5, Glucose 108 H, Calcium 8.3 L, Phosphorus 1.7 L, Magnesium 2.0, Total Bilirubin 0.30, AST 39 H, ALT 27, Alkaline Phosphatase 54, Total Protein 6.1 L, Albumin 2.2 L, Globulin 3.9, Albumin/Globulin Ratio 0.6 L Micro: Microbiology 09/12/22 13:50 Sputum, Induced/Lukens Gram Stain - Final 09/12/22 13:50 Sputum, Induced/Lukens Respiratory Culture - Final Mixed normal respiratory dejah. No Streptococcus pneumoniae, beta-hemolytic Streptococcus or Staphylococcus aureus isolated. ABG Data ABG results: ABG 09/18/22 15:52 Specimen Type ART Sample Site R Radial pH 7.52 H Bicarbonate Actual 29.1 H Total CO2 30 Base Excess 6 H O2 Saturation 94 L ABG pCO2 36.1 ABG pO2 62 L Hayder Test Positive O2 Delivery Device Cannula Liter Flow 4.0 Radiography Diagnostic Testing: Radiology Impression Chest X-Ray 09/14/22 16:10 IMPRESSION: Mild right lower lobe atelectasis or infiltrate. Status post intubation. Electronically Signed: Ruben Davis MD at 17:06 EDT , Chest X-Ray 09/15/22 05:55 IMPRESSION: 1. Bilateral basilar atelectasis and/or infiltration, right greater than left. There is interval worsening from yesterday''s study. 2. Tubes are in adequate position. Electronically Signed: Colton Lainez MD at 5:29 EDT , Rhythm Strip Rhythm Strip: Sinus Tach Rate: 112 Ectopy: None Physical Exam Const alert and no apparent distress HEENT normocephalic and head/scalp atraumatic Eyes PERRL and EOMs intact bilaterally Neck supple General: trachea midline Chest inspection of chest normal Resp Auscultation: Negative for rales, rhonchi or wheezes Cardio regular rate, regular rhythm, S1 normal heart sound and S2 normal heart sound GI normal to inspection, nondistended, normoactive bowel sounds Extremity no clubbing, cyanosis or edema Skin no rashes or lesions noted Neuro moves all extremities and no focal motor deficits Psych Mood & Affect: flat affect Charges/Coding Visit Charges Inpatient E&M: 99477 Subs Hosp L2
--- NOTE | 2022-09-20 08:50 | PCM.PROGNOTE ---
Subjective Subjective Patient seen and examined. He had no complaints and had an uneventful night. He is now on room air. Review of systems is otherwise negative. Objective Data Objective Data Vital Signs: Vital Signs Temp Pulse Resp BP Pulse Ox O2 Del Method O2 Flow Rate 97.9 F 67 20 H 140/93 H 92 Room Air 2 09/20/22 07:00 09/20/22 07:00 09/20/22 08:04 09/20/22 07:00 09/20/22 07:00 09/20/22 08:04 09/19/22 10:00 FiO2 65 09/19/22 00:00 Oxygen Flow Rate (L/min) 2 Oxygen Delivery Method Room Air Weight: 188 lb 14.978 oz Body Mass Index (BMI) 26.3 Intake & Output: Intake and Output for Last 24 Hours 09/18/22 09/19/22 09/20/22 23:59 23:59 23:59 Intake Total 2156.4733 / 2156.4733 3279.3333 / 3279.3333 226.25 / 226.25 Output Total 2300 / 3050 3150 / 3250 575 / 575 Balance -143.5267 / -893.5267 129.3333 / 29.3333 -348.75 / -348.75 Lab / Micro Data 09/20/22 03:00 09/20/22 03:00 Labs: Laboratory Results - last 24 hr 09/20/22 03:00: WBC 8.4, RBC 4.53 L, Hgb 14.0, Hct 40.8, MCV 90.1, MCH 30.9, MCHC 34.3, RDW Std Deviation 42.9, RDW Coeff of Carmine 13.0, Plt Count 168, MPV 10.3, Neut % (Auto) Not Reportable, Absolute Neuts (auto) 4.8, Absolute Lymphs (auto) 1.92, Total Counted 100, Neutrophils % (Manual) 51, Band Neutrophils % 1, Lymphocytes % (Manual) 23, Monocytes % (Manual) 16 H, Eosinophils % (Manual) 3, Basophils % (Manual) 1, Metamyelocytes % 3 H, Myelocytes % 2 H, Diff Path Review June, Platelet Estimate ADEQUATE, RBC Morphology NORM C+C, Sodium 142, Potassium 3.8, Chloride 110 H, Carbon Dioxide 26.0, Anion Gap 6, BUN 12, Creatinine 0.62 L, Estim Creat Clear Calc 165.31, Est GFR (MDRD) Af Amer 184, Est GFR (MDRD) Non-Af 152, BUN/Creatinine Ratio 19.5, Glucose 108 H, Calcium 8.3 L, Phosphorus 1.7 L, Magnesium 2.0, Total Bilirubin 0.30, AST 39 H, ALT 27, Alkaline Phosphatase 54, Total Protein 6.1 L, Albumin 2.2 L, Globulin 3.9, Albumin/Globulin Ratio 0.6 L Micro: Microbiology 09/12/22 13:50 Sputum, Induced/Lukens Gram Stain - Final 09/12/22 13:50 Sputum, Induced/Lukens Respiratory Culture - Final Mixed normal respiratory dejah. No Streptococcus pneumoniae, beta-hemolytic Streptococcus or Staphylococcus aureus isolated. Rhythm Strip Rhythm Strip: Sinus Tach Rate: 112 Ectopy: None Physical Exam Const alert, oriented x3, no apparent distress and average body habitus General Appearance: cooperative HEENT normocephalic, head/scalp atraumatic and moist oral mucous membranes Eyes PERRL, EOMs intact bilaterally and conjunctivae normal Eyes Narrative: right eye periorbital edema and discharge have resolved. Neck no lymphadenopathy, supple, no JVD, thyroid normal and no carotid bruits Lymph Lymphatic: no lymphadenopathy noted and no lymphedema noted Resp normal respiratory effort Resp Narrative: mildly diminished breath sounds bibasally, no wheezes or crackles. on room air. Cardio regular rate, regular rhythm, S1 normal heart sound, S2 normal heart sound, no murmurs and no rub GI normal to inspection, nondistended, normoactive bowel sounds, soft to palpation, non-tender and non-distended Extremity normal capillary refill and no clubbing, cyanosis or edema Skin General Skin Exam: no breakdown Neuro CN's II-XII intact bilaterally, no focal motor deficits and no sensory deficits noted Motor Exam: strength 5/5 throughout Psych thought process normal and cooperative Appearance: appropriate Assessment & Plan Assessment/Plan (1) CHEVY (acute kidney injury): (2) Encephalopathy acute: (3) Recurrent seizures: (4) Alcoholic hepatitis: PLAN: Plan #Status epilepticus in setting of seizure disorder and exacerbated by alcohol dependence resolved. was intubated on admission, now extubated. on IV Keppra and depakote. critical care on board seizure precautions #Acute alcohol withdrawal now extubated, off precedex drip. on thiamine, folic acid. critical care on board #Acute hypoxic respiratory failure due to PRobable aspiration pneumonia on IV zosyn. sputum culture showing mixed normal respiratory dejah now extubated and on room air. critical care on board continue antibiotics to complete 7 day course #RIght eye bacterial conjuctivitis largely resolved. On ciprofloxacin eye drops #CHEVY: resolved. #Elevated triglycerides resolving as patient is off propofol #GERD: on famotidine. #Nutrition:now on oral diet. Tube feeds discontinued as he is extubated. DVT prophylaxis; heparin. Disposition: transfer to PCU Charges/Coding Visit Charges Inpatient E&M: 17971 Subs Hosp L2
[2022-09-20] MEDS: Folic Acid 1 MG Tablet GT (08:54)
[2022-09-20] MEDS: Thiamine Hydrochloride 100 MG Tablet GT (08:54)
[2022-09-20] MEDS: Famotidine 20 MG Tablet PO ×2 (08:55→21:09)
[2022-09-20] MEDS: Heparin Injection (Vial) 5,000 UNIT/ML VIAL 5000 UNIT SC ×2 (09:21→21:07)
[2022-09-20] MEDS: 0.9% Saline Lock 10 ML Syringe IV ×2 (12:28→22:18)
--- NOTE | 2022-09-20 21:56 | PN.HOSP_ITS ---
Hospitalist Note air liaison and special staff noted irritation to the back primarily, patient washed, pat dry, will dose x 1 with benadryl.
--- NOTE | 2022-09-20 21:56 | PCM.HOSP.N ---
Hospitalist Note corporate staff accountant noted irritation to the back primarily, patient washed, pat dry, will dose x 1 with benadryl.
[2022-09-20] MEDS: Acetaminophen 650 MG/20 ML UDC PO (22:17)
[2022-09-20] MEDS: DiphenhydrAMINE 50 MG/ML Syringe 25 MG IV (22:17)
[2022-09-21] MEDS: DiphenhydrAMINE 50 MG/ML Syringe 25 MG IV ×2 (02:51→09:29)
[2022-09-21] MEDS: Ciprofloxacin 0.3% 2.5ml Bottle 2 DRP RIGHT EYE ×4 (02:51→14:15)
[2022-09-21] MEDS: Methylprednisolone Sod Succ 40 MG/ML VIAL IV ×2 (02:54→14:15)
[2022-09-21 03:00] VITALS: BP 127/77; PULSE 63; RESP 16; TEMP 36.8; O2SAT 93
[2022-09-21 06:00] VITALS: BMI 26.4
[2022-09-21 06:05] LABS: Hematocrit 46.2 % (40-54); Hemoglobin 15.5 g/dL (13.0-16.5); Mean Corp Hgb Conc 33.5 g/dL (32-36); Mean Corpuscular Hgb 29.9 pg (27.0-32.0); POSITIVE COUNT YES; POSITIVE MORPHOLOGY YES; Platelet Count 245 K/mm3 (150-450); RBC Distribution Width CV 13.1 % (11.6-14.6); RBC Distribution Width SD 42.5 fl (35.1-43.9); Red Blood Count 5.19 M/mm3 (4.6-6.2); White Blood Count 7.1 K/mm3 (4.4-11.0)
[2022-09-21 06:27] LABS: Differential Indicated MANUAL DIFF
[2022-09-21 06:36] LABS: ALB/GLOB Ratio 0.6 RATIO (0.9-2.4); AST(SGOT) 32 U/L (15-37); Alanine Aminotransfer ALT/SGPT 32 U/L (16-61); Albumin, Serum 2.4 g/dL (3.2-5.0); Alkaline Phosphatase 52 U/L (45-117); Anion Gap 6 (5-15); BUN 13 mg/dL (7-18); BUN/Creat Ratio 18.9 RATIO (10-20); Calcium,Total 8.6 mg/dL (8.5-10.1); Chloride 108 mmol/L (98-107); Creatinine, Serum 0.69 mg/dL (0.70-1.30); EST Glomerular Filtration Rate 133 mL/min (>60); Est Glom Filt Rate - Afr Amer 161 mL/min (>60); Estimated Creatinine Clearance 148.54 ml/min; Globulin 4.2 g/dL (2.2-4.2); Glucose 102 mg/dL (74-106); Magnesium 2.2 mg/dL (1.6-2.6); Phosphorus 1.9 mg/dL (2.5-4.9); Potassium 3.4 mmol/L (3.5-5.1); Protein, Total 6.6 g/dL (6.4-8.2); Sodium Level 139 mmol/L (136-145)
[2022-09-21 07:10] LABS: Eosinophil 5 % (0-5); Lymphocyte 20 % (19-41); Metamyelocyte 1 % (0-1); Monocyte 13 % (0-10); Myelocyte 7 % (0-0); Neutrophil-Band 12 % (0-5); Neutrophil-Segmented 42 % (47-70); Total Cells Counted 100 (MANUAL DIFF)
[2022-09-21 07:11] LABS: Platelet Morphology LARGE; Reactive Lymphocyte 2+; Toxic Granulation 3+
[2022-09-21 07:15] LABS: Absolute Neutrophil Count 3.9 X10^3/uL (2.0-7.7)
[2022-09-21 07:16] LABS: Absolute Lymphocyte Count 1.42 X10^3/uL (0.83-4.51)
[2022-09-21 07:34] VITALS: O2SAT 93
[2022-09-21] MEDS: Thiamine Hydrochloride 100 MG Tablet GT (09:26)
[2022-09-21] MEDS: Folic Acid 1 MG Tablet GT (09:26)
[2022-09-21 09:35] VITALS: BP 124/90; PULSE 83; RESP 18; TEMP 37.1; O2SAT 94
[2022-09-21] MEDS: Heparin Injection (Vial) 5,000 UNIT/ML VIAL 5000 UNIT SC (10:29)
[2022-09-21] MEDS: Famotidine 20 MG Tablet PO (10:36)
--- NOTE | 2022-09-21 12:08 | CASEMGMT ---
Social Work SW met w/pt in room, pt's liliana present. SW spoke w/pt about alcohol use, inquired if he is interested in any resources for cessation. Pt states his father set up appointments for him and his fiancee, he is not sure where. SW offered to get him information for [facility], pt's liliana states she already has information for [facility]. SW inquired if he would like information for AA, he is open to this. SW provided to pt a list of online and in person AA meetings. No further social service needs anticipated at this time. ALEIDA Andres
[2022-09-21] MEDS: Potassium Chloride Oral Tablet 20 MEQ PO (12:15)
[2022-09-21] MEDS: Na Biphos/Potassium Phosphate PACKET 1 PACKET PO (12:24)
--- NOTE | 2022-09-21 12:35 | CASEMGMT ---
JUAN JOSE CHOWDHURY noted pt using a FWW and additional therapy is recommended. RN CM into pt room, pt states he does not feel like he needs a FWW for at home. Pt denies having any DME in the home. Pt states he feels that once he gets home and moves around as normal, he will regain his strength. Pt denies need for any therapy as well including outpt therapy. Pt aware should he change his mind to notify the RN [place]. Pt verbalizes understanding.
--- NOTE | 2022-09-21 13:50 | DS.PCM_ITS ---
Providers Date of Admission: 09/12/22 Date of Discharge: 09/21/22 Primary Care Physician: [facility] Consultations 09/12/22 16:53 Consult: Adult Education Instructor / Pulmonary Medicine Routine Consulting Provider: [facility] Reason for Consult: resp insuff EMERGENT Consult: No MD Notified: Yes Date Notified: 09/12/22 Time Notified: 16:17 Method of Notification: Verbal Reason For Visit: RECURRENT SEIZURES, ALCOHOL WITHDRAWAL Diagnosis Discharge Diagnosis (1) CHEVY (acute kidney injury): Status: Acute Code(s): N17.9 - Acute kidney failure, unspecified (2) Encephalopathy acute: Status: Acute Code(s): G93.40 - Encephalopathy, unspecified (3) Recurrent seizures: Status: Acute Code(s): G40.909 - Epilepsy, unspecified, not intractable, without status epilepticus (4) Alcoholic hepatitis: Status: Acute Code(s): K70.10 - Alcoholic hepatitis without ascites Plan #Recurrent seizures #alc hepatitis #alc withdrawal #recurrent sz #chevy resolved #rash on arms Medications at Discharge Home Medications divalproex 500 mg tablet,delayed release (Depakote) 500 mg PO Q6H 30 days #120 tabs 09/21/22 hydrocortisone 1 % topical cream 1 applic topical TID PRN rash #28.4 grams 09/21/22 levetiracetam 750 mg tablet (Keppra) 1,500 mg (2 x 750 mg) PO BID 30 days #120 tabs 09/21/22 Hospital Course Summary of Care Provided Minutes Spent on Discharge: 35 Hospital Course: 41-year-old male with history of seizure disorder presented to [facility] 09/12/2022 with multiple seizures. He was brought in by EMS and was given IM Versed. Patient had known seizure disorder and was taking seizure medications at home and also had a history of alcohol use. He had quit drinking but recently began drinking heavily again per his girlfriend with unclear last drink. He was admitted and ultimately required intubation and ICU transfer due to acute respiratory failure presumed to be due to metabolic encephalopathy in t he setting of delirium tremens. He is extubated on September 18 but there was concern for aspiration pneumonia and he completed a course of 7 days of Zosyn. He also completed phenobarb taper for alcohol withdrawal. Patient improved and had no further seizure-like activity. He was doing well and day prior to discharge did develop a red rash on both of his arms that was stable through the day and had no mouth lesions and no trouble breathing or swallowing. Patient feeling well and very anxious to go home and request to follow-up with his primary care physician if this does not improve which is reasonable given his stability. He had no acute complaints on day of discharge and verbalizes unders tanding of discharge instructions. Discharge instructions as follows: -Please follow-up with your neurologist upon discharge. Please call their office to schedule hospital follow-up appointment upon discharge. -You will be discharged on Depakote which she will take every 6 hours (which equates to 4 times a day) and Keppra 1500 mg twice daily, prescription for this has been sent into your preferred pharmacy on file -Additionally you have the rash on your arms, hydrocortisone cream prescription was sent into your preferred pharmacy on file, if rash worsens or does not improve in the next 1 to 2 days please contact your primary care physician for further instructions. You can take Benadryl as needed for itching but again would contact your primary care physician upon discharge as this will need to be monitored -Would recommend lab work (CMP and phosphorus) to check your phosphorus levels, potassium, liver function in 2 to 3 days through your primary care physician's office. Please call their office upon discharge to obtain order for lab work. - It is strongly advised that you refrain from any substance use. Please call [facility] located at [address] [place], [place] [id number] (ph [phone]) if you are interested in further resources SEIZURE DISCHARGE INSTRUCTIONS: - Seizures are unpredictable. Do not do anything that might cause danger to you or other people if you have another seizure. Do not drive, ride a bike, climb ladders/heights, hold a baby or operate dangerous equipment etc. - Do not drive until you are cleared to do so by your doctor -Avoid unsupervised activities that may pose danger of sudden loss of consciousness including bathing, swimming alone, working at heights, and/or operating heavy machinery. - Do not take a bath alone. Take shower instead - Do not spend time alone until your healthcare provider says that you are no longer in danger of having another seizure - Tell your close friends and relatives about your seizure. Teach them what to do for you if it happens again - Take your medicine as prescribed, missing doses increases your risk of having repeat seizure -Follow regular sleep schedule such that you get at least 60 hours of restful sleep every night. This is especially important when you are sick or have a cold, flu, or another type of infection - Do not drink alcoholic beverages until your doctor says it is okay. Do not ever use recreational drugs -For future seizures if you are alone: If you feel a seizure coming on, lie down on a bed or the floor or with something soft under your head and lie on your left side, not in your back. Also make sure you are not near any objects that may injure you during seizure. Call 911 if you can. - For future seizures if someone is with you: Depression should help you get into a safe position and then they should call 911. They should not try to force anything into your mouth once the seizure begins. They should not put their fingers in your mouth. -After seizure you may be drowsy or confused. That person should stay with you until you are fully awake. That person should not offer you anything to eat or drink during that time. Call 911 or go to the emergency department. -Call your healthcare provider right away if you have any of these: Another seizure, a fever of 100.4 ?F or higher, abnormal irritability, drowsiness, or confusion, head or neck pain that gets worse -Please call your primary care provider's office upon discharge to schedule a hospital follow up within 1 week. -For any concerning signs or symptoms please call 911 or proceed to the nearest emergency department Physical Exam Narrative General: Alert, oriented, no apparent distress HEENT: Atraumatic, normocephalic Eyes: Anicteric, normal conjunctiva, extraocular movements grossly intact Neck: Supple Respiratory: Clear to auscultation bilaterally, normal respiratory effort Cardiovascular: Regular rate and rhythm GI: Soft, nontender, nondistended Extremities: No edema Musculoskeletal: Moving all extremities Neuro: No overt focal neurological deficits Skin: Has splotchy red rash on underside of both arms with no lesions in mouth, some scattered erythema on left lower abdomen, no respiratory compromise Psych: Cooperative Weight / BMI Weight Weight: 86 kg Body Mass Index (BMI) 26.4 ABG / Lab / Microbiology Data 09/21/22 05:24 09/21/22 05:24 Laboratory: Laboratory Results - last 24 hr 09/21/22 05:24: WBC 7.1, RBC 5.19, Hgb 15.5, Hct 46.2, MCV 89.0, MCH 29.9, MCHC 33.5, RDW Std Deviation 42.5, RDW Coeff of Carmine 13.1, Plt Count 245, MPV 10.0, Neut % (Auto) Not Reportable, Absolute Neuts (auto) 3.9, Absolute Lymphs (auto) 1.42, Total Counted 100, Neutrophils % (Manual) 42 L, Band Neutrophils % 12 H, Lymphocytes % (Manual) 20, Monocytes % (Manual) 13 H, Eosinophils % (Manual) 5, Metamyelocytes % 1, Myelocytes % 7 H, Diff Path Review May foll, Reactive Lymphocytes 2+, Toxic Granulation 3+, Plt Morphology Comment LARGE, Sodium 139, Potassium 3.4 L, Chloride 108 H, Carbon Dioxide 25.0, Anion Gap 6, BUN 13, Creatinine 0.69 L, Estim Creat Clear Calc 148.54, Est GFR (MDRD) Af Amer 161, Est GFR (MDRD) Non-Af 133, BUN/Creatinine Ratio 18.9, Glucose 102, Calcium 8.6, Phosphorus 1.9 L, Magnesium 2.2, Total Bilirubin 0.30, AST 32, ALT 32, Alkaline Phosphatase 52, Total Protein 6.6, Albumin 2.4 L, Globulin 4.2, Albumin/Globulin Ratio 0.6 L Microbiology: Microbiology 09/12/22 13:50 Sputum, Induced/Lukens Gram Stain - Final 09/12/22 13:50 Sputum, Induced/Lukens Respiratory Culture - Final Mixed normal respiratory dejah. No Streptococcus pneumoniae, beta-hemolytic Streptococcus or Staphylococcus aureus isolated. D/C Instructions Discharge Diet: No restrictions Meaningful Use Info Meaningful Use Diagnoses (Choose all that apply): None applicable Discharge Plan Admission Admit Date/Time: 09/12/22 16:13 Primary Reason for Your Visit: Seizures Attending Provider: Riri Anders Primary Care Provider: [facility] Consulting Providers: Kaden Wagner; Negrita Jansen; [place]; Isauro Moses; Chidi Jackson; Reza Rivas; Cata Soto NP; Olivia Sena Instructions Patient Instructions: ED Seizure, Recurrent (Adult) Additional Instructions / Restrictions: DISCHARGE INSTRUCTIONS PLEASE READ *Please take this with you to your next doctors appointment* -Please follow-up with your neurologist upon discharge. Please call their office to schedule hospital follow-up appointment upon discharge. -You will be discharged on Depakote which she will take every 6 hours (which equates to 4 times a day) and Keppra 1500 mg twice daily, prescription for this has been sent into your preferred pharmacy on file -Additionally you have the rash on your arms, hydrocortisone cream prescription was sent into your preferred pharmacy on file, if rash worsens or does not improve in the next 1 to 2 days please contact your primary care physician for further instructions. You can take Benadryl as needed for itching but again would contact your primary care physician upon discharge as this will need to be monitored -Would recommend lab work (CMP and phosphorus) to check your phosphorus levels, potassium, liver function in 2 to 3 days through your primary care physician's office. Please call their office upon discharge to obtain order for lab work. - It is strongly advised that you refrain from any substance use. Please call [facility] located at [address] [place], [place] [phone] (ph [phone]) if you are interested in further resources SEIZURE DISCHARGE INSTRUCTIONS: - Seizures are unpredictable. Do not do anything that might cause danger to you or other people if you have another seizure. Do not drive, ride a bike, climb ladders/heights, hold a baby or operate dangerous equipment etc. - Do not drive until you are cleared to do so by your doctor -Avoid unsupervised activities that may pose danger of sudden loss of cons ciousness including bathing, swimming alone, working at heights, and/or operating heavy machinery. - Do not take a bath alone. Take shower instead - Do not spend time alone until your healthcare provider says that you are no longer in danger of having another seizure - Tell your close friends and relatives about your seizure. Teach them what to do for you if it happens again - Take your medicine as prescribed, missing doses increases your risk of having repeat seizure -Follow regular sleep schedule such that you get at least 60 hours of restful sleep every night. This is especially important when you are sick or have a cold, flu, or another type of infection - Do not drink alcoholic beverages until your doctor says it is okay. Do not ever use recreational drugs -For future seizures if you are alone: If you feel a seizure coming on, lie down on a bed or the floor or with something soft under your head and lie on your left side, not in your back. Also make sure you are not near any objects that may injure you during seizure. Call 911 if you can. - For future seizures if someone is with you: Depression should help you get into a safe position and then they should call 911. They should not try to force anything into your mouth once the seizure begins. They should not put their fingers in your mouth. -After seizure you may be drowsy or confused. That person should stay with you until you are fully awake. That person should not offer you anything to eat or drink during that time. Call 911 or go to the emergency department. -Call your healthcare provider right away if you have any of these: Another seizure, a fever of 100.4 ?F or higher, abnormal irritability, drowsiness, or confusion, head or neck pain that gets worse -Please call your primary care provider's office upon discharge to schedule a hospital follow up within 1 week. -For any concerning signs or symptoms please call 911 or proceed to the nearest emergency department Discharge Orders/Prescriptions Prescriptions: New hydrocortisone 1 % cream 1 applic topical TID PRN (Reason: rash) Qty: 28.4 0RF Rx Instructions: DO NOT USE ON FACE Continued levetiracetam [Keppra] 750 mg tablet 1,500 mg PO BID 30 Days Qty: 120 0RF Changed divalproex [Depakote] 500 mg tablet,delayed release (DR/EC) 500 mg PO Q6H 30 Days Qty: 120 0RF Referrals / [facility] - [facility] 2 Weeks [facility] [Primary [facility]] - Within 1 Week Disposition Disposition (needs filled in before D/C Order can be placed): Home, Self Care Charges/Coding Visit Charges Inpatient E&M: 18245 Disch Hosp >30min
[2022-09-21 14:21] VITALS: BP 123/88; PULSE 89; RESP 16; TEMP 37; O2SAT 99
[2022-09-21 15:45] LABS: Pathologist Review Reviewed
[2022-09-21 15:47] LABS: Pathologist Review Reviewed
[2022-09-22 15:37] LABS: Pathologist Review Reviewed
== END 2022-09-21 14:30 | disposition home or self-care (01) | DRG 896 ==
LOC: ED 11:58 → ICU 16:21 → MS3 09-20 13:36
PROVIDERS: Family Medicine; Internal Medicine Critical Care Medicine; Student in an Organized Health Care Education/Training Program; Admitting Provider Internal Medicine; Emergency Provider Emergency Medicine; Visit Provider Internal Medicine
DX: F10.231 Alcohol dependence with withdrawal delirium (principal); J96.01 Acute respiratory failure with hypoxia; J69.0 Pneumonitis due to inhalation of food and vomit; G93.41 Metabolic encephalopathy; N17.9 Acute kidney failure, unspecified; R44.3 Hallucinations, unspecified; E87.21 Acute metabolic acidosis; G40.901 Epilepsy, unspecified, not intractable, with status epilepticus; E87.6 Hypokalemia; K21.9 Gastro-esophageal reflux disease without esophagitis; K70.10 Alcoholic hepatitis without ascites; E86.0 Dehydration; H10.9 Unspecified conjunctivitis; L29.9 Pruritus, unspecified; R45.1 Restlessness and agitation; Z91.148 Patient's other noncompliance with medication regimen for other reason; R73.9 Hyperglycemia, unspecified
CPT/HCPCS: 31500; 31720; 36415; 36600; 51702; 70450; 71045; 80048; 80053; 80164; 80307; 82077; 82550; 82803; 83605; 83735; 84100; 84478; 85025; 87070; 87205; 87641; 93005; 94002; 94003; 94660; 94762; 97162; 97166; 97530; 97535; 97802; 97803; 99252; 99285; J7030; J7040; J7050; A4216; G0463; J1940; J2405